=== PATIENT | male | born 1955 | race Caucasian/White ===

== ENCOUNTER 2017-02-26 20:58 | Emergency (ER) | payer BC ==
[~2017-02-26] VITALS: Ht 180.3 cm; Wt 91.9 kg
[~2017-02-26 20:58] MED LIST: ONDA4TAB46 PO
[2017-02-26 21:02] VITALS: TEMP 37.4; Ht 180.3 cm; Wt 91.9 kg
[2017-02-26] MEDS ORDERED: SODIUM CHLORIDE 0.9% 1000ML 1,000 ML IV STA (21:16)
[2017-02-26] MEDS ORDERED: ONDANSETRON INJ 2 MG/ML 2 ML VIAL IV STA (21:16)
[2017-02-26] MEDS ORDERED: KETOROLAC TROMETHAMINE 30 MG/ML VIAL IV STA (21:16)
[2017-02-26] MEDS ORDERED: GABA600T PO (21:23)
[2017-02-26] MEDS ORDERED: MIRT15TA3 PO (21:23)
[2017-02-26] MEDS ORDERED: FLUO40CA8 PO (21:23)
[2017-02-26] MEDS ORDERED: OLAN1TAB64 PO (21:23)
[2017-02-26 21:36] LABS: BASO % 0.2 %; BASO ABS # 0.02 K/uL (0-0.2); COMPLETE YES; HEMATOCRIT 44.7 % (42-52); IG% 0.2 %; LYMPH % 8.3 %; LYMPH ABS # 1.07 K/uL (1.2-3.4); MEAN CORPUSCULAR HEMOGLOBIN 30.5 pg (25-34); MEAN CORPUSCULAR HGB CONC 35.1 g/dl (32-36); MEAN PLATELET VOLUME 9.5 fL (7.4-10.4); MONO % 3.6 %; NEUT % 87.7 %; PLATELET COUNT 314 K/uL (130-400); RED BLOOD COUNT 5.14 M/uL (4.7-6.1); WHITE BLOOD COUNT 12.96 K/uL (4.8-10.8)
[2017-02-26 22:02] LABS: BUN/CREATININE RATIO 10.3 (10-20); CALCIUM 8.9 mg/dl (8.5-10.1); CREATININE 1.5 mg/dl (0.60-1.40); POTASSIUM 3.6 mmol/L (3.5-5.1)
--- NOTE | 2017-02-26 22:21 | DIAGNOSTIC IMAGING REPORT ---
CT SCAN OF THE ABDOMEN AND PELVIS WITHOUT IV CONTRAST CLINICAL HISTORY: Right flank pain. COMPARISON STUDY: No priors. TECHNIQUE: CT scan of the abdomen and pelvis is performed from the lung bases to the proximal femora. Images are reviewed in the axial, sagittal, and coronal planes. IV contrast was not administered for this examination as per the referring clinician. Automated dose control exposure was utilized. A dose lowering technique was utilized adhering to the principles of ALARA. CT DOSE: 494.27 mGy.cm FINDINGS: Lung bases: The heart is normal in size and without pericardial effusion. The lung bases are clear. Liver: The unenhanced liver is enlarged, measuring 18.7 cm in length. The liver demonstrates diffusely diminished attenuation consistent with severe hepatic steatosis. There is no intrahepatic biliary ductal dilatation. Gallbladder: There are numerous calcified gallstones. Spleen: Normal in size and attenuation. Pancreas: Unremarkable. Adrenal glands: Unremarkable. Kidneys: The unenhanced kidneys are normal in size. There is a 6 mm obstructing calculus in the mid right ureter at the level of L4 seen on axial image #303. This causes moderate right-sided hydroureteronephrosis. There is associated right-sided perinephric stranding and fluid. An additional punctate nonobstructing calculus is noted in the right kidney. No left renal calculi are identified and there is no left-sided hydronephrosis. There is no evidence of contour deforming renal mass lesion. Abdominal vasculature: The abdominal aorta is normal in course and caliber noting mild atherosclerotic calcification. Bowel: The small bowel and colon are normal in course and caliber. The appendix is not identified and reported surgically absent. Peritoneum: There is no intraperitoneal free air or abdominal ascites. There is a small fat-containing umbilical hernia. Lymphadenopathy: None. Pelvic viscera: The bladder, prostate, and seminal vesicles are normal as imaged. Skeletal structures: There is mild to moderate lumbosacral spondylosis. No lytic or blastic lesions are seen. IMPRESSION: 1. There is a 6 mm obstructing calculus in the mid right ureter. This causes moderate right-sided hydroureteronephrosis. 2. An additional punctate nonobstructing calculus is seen in the right kidney. No left renal calculi are identified. 3. Hepatomegaly and severe hepatic steatosis. 4. Cholelithiasis. 5. Additional findings as above. Electronically signed by: Familia Carroll M.D. 02/26/2017 10:20 PM Dictated Date/Time: 02/26/2017 10:14 PM
[2017-02-26 23:07] LABS: URINE APPEARANCE CLEAR (CLEAR); URINE BILIRUBIN NEG (NEG); URINE COLOR YELLOW; URINE NITRITE NEG (NEG); URINE PH 6.5 (4.5-7.5); URINE SPECIFIC GRAVITY 1.025 (1.000-1.030); UROBILINOGEN NEG (NEG); ZZUR CULT IF INDIC CLEAN CATCH NO
[2017-02-26 23:08] LABS: MANUAL MICROSCOPIC REQUIRED? NO; REVIEW REQ? NO
[2017-02-26] MEDS ORDERED: TAMS0.4C38 PO (23:14)
[2017-02-26] MEDS ORDERED: OXYC1TAB3 PO (23:14)
[2017-02-26 23:27] VITALS: BP 155/97; PULSE 99; O2SAT 94
[2017-02-26] MEDS ORDERED: OXYCODONE IR HOME PACK PO ONE (23:30)
--- NOTE | 2017-02-27 00:24 | EMERGENCY ROOM VISIT NOTE ---
History Report prepared by Lindsay: Sukhdeep Zhu Under the Supervision of: Dr. Walter Dye D.O. First contact with patient: 21:06 Chief Complaint: ABDOMINAL PAIN Stated Complaint: PAIN IN SIDE History of Present Illness The patient is a 61 year old male who presents to the Emergency Room with complaints of intermittent right sided abdominal pain that began yesterday afternoon. He rates his pain an 8/10 in severity. He has experienced this pain three separate times over this time period with the last still occurring. This has never happened to him before. He states that sometimes moving makes his pain better and sometimes it makes it worse. He is currently nauseated. He has a past medical history of an appendectomy. He still has his gallbladder. He denies any history of kidney stones. He has not been doing heavy lifting. Pt denies headache, change in vision, fevers, chest pain, shortness of breath, vomiting, diarrhea, pain with urination, melena, hematuria, testicular pain, or testicular swelling. His last bowel movement was yesterday. Source of History: patient Onset: yesterday Position: abdomen (right sided) Symptom Intensity: 8/10 Quality: sharp Timing: intermittent Modifying Factors (Worsening): movement Modifying Factors (Relieving): movement Associated Symptoms: + nausea, No fevers, No headache, No chest pain, No SOB , No vomiting, No melena, No diarrhea, No urinary symptoms Review of Systems See HPI for pertinent positives & negatives. A total of 10 systems reviewed and were otherwise negative. Past Medical & Surgical Surgical Problems: (1) History of appendectomy Family History Omitted secondary to the patient's age. Social History Smoking Status: Never Smoker Smokeless Tobacco Use: No Drug Use: none Occupation Status: employed Current/Historical Medications Scheduled Fluoxetine (Prozac), 80 MG PO DAILY Gabapentin (Neurontin), 600 MG PO BID Mirtazapine (Remeron), 15 MG PO HS Olanzapine (Zyprexa), 15 MG PO DAILY Tamsulosin Hcl (Flomax), 0.4 MG PO DAILY Scheduled PRN Oxycodone Immediate Rel Tab (Roxicodone Ir), 5 MG PO Q6H PRN for Pain Allergies Coded Allergies: No Known Allergies (Verified , 02/26/17) Physical Exam Vital Signs Date Time Temp Pulse Resp B/P (MAP) Pulse Ox O2 Delivery O2 Flow Rate FiO2 02/26/17 23:27 99 18 155/97 94 02/26/17 21:02 37.4 88 16 195/107 95 Room Air Physical Exam GENERAL: alert, disheveled appearing, well nourished, no distress, non-toxic, sitting up in bed EYE EXAM: normal conjunctiva OROPHARYNX: no exudate, no erythema, lips, buccal mucosa, and tongue normal and mucous membranes are moist NECK: supple, no nuchal rigidity, no adenopathy, non-tender LUNGS: Clear to auscultation. Normal chest wall mechanics HEART: no murmurs, S1 normal and S2 normal ABDOMEN: abdomen soft, minimal tenderness to right lower quadrant, normo-active bowel sounds, no masses, no rebound or guarding. BACK: Back is symmetrical on inspection and there is no deformity, no midline tenderness, no CVA tenderness. SKIN: no rashes and no bruising UPPER EXTREMITIES: upper extremities are grossly normal. LOWER EXTREMITIES: No pitting edema. NEURO EXAM: Normal sensorium, cranial nerves II-XII grossly intact, normal speech, no gross weakness of arms, no gross weakness of legs. Medical Decision & Procedures ER Provider Diagnostic Interpretation: Radiology results as stated below per my review and the radiologist's interpretation: CT SCAN OF THE ABDOMEN AND PELVIS WITHOUT IV CONTRAST CLINICAL HISTORY: Right flank pain. COMPARISON STUDY: No priors. TECHNIQUE: CT scan of the abdomen and pelvis is performed from the lung bases to the proximal femora. Images are reviewed in the axial, sagittal, and coronal planes. IV contrast was not administered for this examination as per the referring clinician. Automated dose control exposure was utilized. A dose lowering technique was utilized adhering to the principles of ALARA. CT DOSE: 494.27 mGy.cm FINDINGS: Lung bases: The heart is normal in size and without pericardial effusion. The lung bases are clear. Liver: The unenhanced liver is enlarged, measuring 18.7 cm in length. The liver demonstrates diffusely diminished attenuation consistent with severe hepatic steatosis. There is no intrahepatic biliary ductal dilatation. Gallbladder: There are numerous calcified gallstones. Spleen: Normal in size and attenuation. Pancreas: Unremarkable. Adrenal glands: Unremarkable. Kidneys: The unenhanced kidneys are normal in size. There is a 6 mm obstructing calculus in the mid right ureter at the level of L4 seen on axial image #303. This causes moderate right-sided hydroureteronephrosis. There is associated right-sided perinephric stranding and fluid. An additional punctate nonobstructing calculus is noted in the right kidney. No left renal calculi are identified and there is no left-sided hydronephrosis. There is no evidence of contour deforming renal mass lesion. Abdominal vasculature: The abdominal aorta is normal in course and caliber noting mild atherosclerotic calcification. Bowel: The small bowel and colon are normal in course and caliber. The appendix is not identified and reported surgically absent. Peritoneum: There is no intraperitoneal free air or abdominal ascites. There is a small fat-containing umbilical hernia. Lymphadenopathy: None. Pelvic viscera: The bladder, prostate, and seminal vesicles are normal as imaged. Skeletal structures: There is mild to moderate lumbosacral spondylosis. No lytic or blastic lesions are seen. IMPRESSION: 1. There is a 6 mm obstructing calculus in the mid right ureter. This causes moderate right-sided hydroureteronephrosis. 2. An additional punctate nonobstructing calculus is seen in the right kidney. No left renal calculi are identified. 3. Hepatomegaly and severe hepatic steatosis. 4. Cholelithiasis. 5. Additional findings as above. Electronically signed by: Familia Carroll M.D. 02/26/2017 10:20 PM Dictated Date/Time: 02/26/2017 10:14 PM Laboratory Results 02/26/17 21:25 Red Blood Count 5.14, Mean Corpuscular Volume 87.0, Mean Corpuscular Hemoglobin 30.5, Mean Corpuscular Hemoglobin Concent 35.1, Mean Platelet Volume 9.5, Neutrophils (%) (Auto) 87.7, Lymphocytes (%) (Auto) 8.3, Monocytes (%) (Auto) 3.6, Eosinophils (%) (Auto) 0.0, Basophils (%) (Auto) 0.2, Neutrophils # (Auto) 11.37, Lymphocytes # (Auto) 1.07, Monocytes # (Auto) 0.47, Eosinophils # (Auto) 0.00, Basophils # (Auto) 0.02 02/26/17 21:25 Test 02/26/17 21:25 02/26/17 22:45 White Blood Count 12.96 K/uL (4.8-10.8) Red Blood Count 5.14 M/uL (4.7-6.1) Hemoglobin 15.7 g/dL (14.0-18.0) Hematocrit 44.7 % (42-52) Mean Corpuscular Volume 87.0 fL (80-100) Mean Corpuscular Hemoglobin 30.5 pg (25-34) Mean Corpuscular Hemoglobin Concent 35.1 g/dl (32-36) Platelet Count 314 K/uL (130-400) Mean Platelet Volume 9.5 fL (7.4-10.4) Neutrophils (%) (Auto) 87.7 % Lymphocytes (%) (Auto) 8.3 % Monocytes (%) (Auto) 3.6 % Eosinophils (%) (Auto) 0.0 % Basophils (%) (Auto) 0.2 % Neutrophils # (Auto) 11.37 K/uL (1.4-6.5) Lymphocytes # (Auto) 1.07 K/uL (1.2-3.4) Monocytes # (Auto) 0.47 K/uL (0.11-0.59) Eosinophils # (Auto) 0.00 K/uL (0-0.5) Basophils # (Auto) 0.02 K/uL (0-0.2) RDW Standard Deviation 42.9 fL (36.4-46.3) RDW Coefficient of Variation 13.5 % (11.5-14.5) Immature Granulocyte % (Auto) 0.2 % Immature Granulocyte # (Auto) 0.03 K/uL (0.00-0.02) Anion Gap 8.0 mmol/L (3-11) Est Creatinine Clear Calc Drug Dose 61.4 ml/min Estimated GFR () 58.2 Estimated GFR (Non- 50.2 BUN/Creatinine Ratio 10.3 (10-20) Calcium Level 8.9 mg/dl (8.5-10.1) Total Bilirubin 0.7 mg/dl (0.2-1) Direct Bilirubin 0.2 mg/dl (0-0.2) Aspartate Amino Transf (AST/SGOT) 17 U/L (15-37) Alanine Aminotransferase (ALT/SGPT) 26 U/L (12-78) Alkaline Phosphatase 71 U/L (45-117) Total Protein 7.9 gm/dl (6.4-8.2) Albumin 4.1 gm/dl (3.4-5.0) Lipase 142 U/L (73-393) Urine Color YELLOW Urine Appearance CLEAR (CLEAR) Urine pH 6.5 (4.5-7.5) Urine Specific [place] 1.025 (1.000-1.030) Urine Protein 1+ (NEG) Urine Glucose (UA) 3+ (NEG) Urine Ketones 1+ (NEG) Urine Occult Blood 2+ (NEG) Urine Nitrite NEG (NEG) Urine Bilirubin NEG (NEG) Urine Urobilinogen NEG (NEG) Urine Leukocyte Esterase NEG (NEG) Urine WBC (Auto) 1-5 /hpf (0-5) Urine RBC (Auto) 10-30 /hpf (0-4) Urine Hyaline Casts (Auto) 1-5 /lpf (0-5) Urine Epithelial Cells (Auto) 10-20 /lpf (0-5) Urine Bacteria (Auto) NEG (NEG) Laboratory results per my review. Medications Administered Medications (Trade) Dose Ordered Sig/Julienne Route Start Time Stop Time Status Last Admin Dose Admin Sodium Chloride 1,000 ml @ 999 mls/hr Q1H1M STAT IV 02/26/17 21:16 02/26/17 22:16 DC 02/26/17 21:30 999 MLS/HR Ketorolac Tromethamine (Toradol Inj) 30 mg NOW STAT IV 02/26/17 21:16 02/26/17 21:17 DC 02/26/17 21:31 30 MG Ondansetron HCl (Zofran Inj) 4 mg NOW STAT IV 02/26/17 21:16 02/26/17 21:17 DC 02/26/17 21:30 4 MG Oxycodone HCl (Roxicodone Immediate Rel 5MG Home Pack) 1 homepack UD ONCE PO 02/26/17 23:30 02/26/17 23:31 DC 02/26/17 23:24 1 HOMEPACK ED Course ED COURSE: Vital signs were reviewed and showed hypertension. The patients medical record was reviewed The above diagnostic studies were performed and reviewed. ED treatments and interventions as stated above. 2105: The patient was evaluated in room C6. A complete history and physical examination was performed. 2115: Ordered Zofran Inj 4 mg IV, Toradol Inj 30 mg IV, Sodium Chloride 1000 ml @ 999 mls/hr IV 0: Ordered Oxycodone HCl 1 homepack PO 2345: Upon reevaluation, the patient is resting. I discussed my findings with the patient and he understands and agrees with the treatment plan. The patient remained stable while under my care. The patient appeared well at the time of discharge. Medical Decision Differential diagnoses includes but is not limited to gastritis, peptic ulcer disease, GERD, gallbladder disease, pancreatitis, small bowel obstruction, acute coronary syndrome, pericarditis, ischemic bowel, irritable bowel disease, irritable bowel syndrome, appendicitis, diverticulitis, malignancy, hernia, urinary tract infection, torsion, perforation, trauma, infectious. Patient is a 61-year-old male who presents the ER with right-sided abdominal pain associated with nausea. This started yesterday and has been coming going intermittently. He has a previous appendectomy. He was given IV Toradol and had significant improvement of his pain. CT of his abdomen/pelvis shows a 5 mm stone with hydro-. No infection of his UA. Patient has a mild leukocytosis 12.9 thousand which I favor secondary to the pain. Creatinine was slightly elevated at 1.5 from baseline of 1.2. UA shows no infection. Discussed my findings with the patient and family. Patient was discharged with Flomax and OxyIR to follow-up with urology and PCP. Discussed with Pt concerning signs and symptoms to watch out for. Pt was instructed to follow up with their PCP and discussed with the patient their option to return to the ED at anytime for persistent or worsening symptoms. The appropriate anticipatory guidance and out- patient management, including indications for return to the emergency department , were explained at length to the patient and understood. Medication Reconcilliation Current Medication List: was personally reviewed by me Blood Pressure Screening Patient's blood pressure: Elevated blood pressure Blood pressure disposition: Elevated BP felt to be situational Impression Primary Impression: Renal colic Scribe Attestation The scribe's documentation has been prepared under my direction and personally reviewed by me in its entirety. I confirm that the note above accurately reflects all work, treatment, procedures, and medical decision making performed by me. Departure Information Dispostion Home / Self-Care Prescriptions Oxycodone Immediate Rel Tab (ROXICODONE IR) 5 Mg Tab 5 MG PO Q6H Y for Pain, #10 TAB Prov: Walter Dye, DO 02/26/17 Tamsulosin Hcl (FLOMAX) 0.4 Mg Cap 0.4 MG PO DAILY, #10 CAP Prov: Walter Dye, DO 02/26/17 Referrals Cory Carter M.D. (PCP) Forms Call Back Authorization, HOME CARE DOCUMENTATION FORM, IMPORTANT VISIT INFORMATION Patient Instructions ED Stone Renal W Colic, [facility] Additional Instructions Please follow up with your primary care doctor or if you are a student, [facility] with in the next 24 hours. Any worsening of your symptoms, please return to the ED immediately. This includes any fevers greater than 100.4, worsening pain, chest pain, shortness breath, persistent nausea, vomiting, unable to eat or drink, or any other concerning signs or symptoms from your standpoint. You were given medications during this visit that will inhibit your ability to drive, operate machinery and work. Please do NOT drive, operate machinery or work for the next 12hrs. You were also given a prescription for a narcotic. While taking this medication you should also not drive, operate machinery and or work. You were found to have a blood pressure greater than 120 systolic over 90 diastolic. Due to the new Medicare guidelines, we are now recommending that you follow up with your primary care doctor in regards to this elevated blood pressure. Please follow up with urology as listed below within the next 2 weeks.
== END 2017-02-26 23:28 | disposition home or self-care (01) ==
LOC: C.EDB 20:59 → C.EDC 23:28
DX: N23 Unspecified renal colic (principal); R11.0 Nausea; Z79.899 Other long term (current) drug therapy

== ENCOUNTER 2019-12-29 10:47 | Inpatient (IN) ==
--- OUTSIDE RECORDS SUMMARY | 2019-12-29 10:49 | External Medical Summary | Continuity of Care Document ---
:1955 Author Name Usha Pope, Provider Address Unavailable Unavailable , Care Team Providers Name Role Phone Stefan Pope, Chris Unavailable [email or web address] Active medical history not documented Allergies and Adverse Reactions Allergy history not documented Medications Medications not documented Procedures Procedures not documented Immunizations Immunizations not documented Plan of Treatment Planned Observations Planned Goals not documented Results No Known Results Results not documented
[2019-12-29] MEDS ORDERED: SODIUM CHLORIDE 0.9% 1000ML 1,000 ML IV SCH (11:15)
--- NOTE | 2019-12-29 11:15 | Emergency Department Note ---
Impression & Plan Stroke-like symptoms, Left-sided weakness ED Provider Note NAME: TK SETHI AGE: 64 SEX: M ARRIVES VIA: Walk-In INFORMANT: [Patient] ED PROVIDER(S): Cain Weiner MD CHIEF COMPLAINT: Left-sided weakness PLAN: Disposition: Admitted Condition: [Good] MEDICAL DECISION MAKING: Patient presented with acute onset left-sided weakness. Unfortunate he is out of the window for TPA. A stroke alert was initiated. The patient underwent CT angiographic imaging. His vital signs revealed tachycardia. His EKG showed sinus tachycardia without ischemia. His blood work was unremarkable except for mild hyperglycemia. He had a tele-stroke consult with Dr. Isidro at [facility]. The patient was hydrated with saline. She recommended hydration, aspirin and Plavix loading. He was given rectal aspirin as he failed his dysphagia screen. Speech will need to evaluate the patient before his Plav ix is administered. The sure coordinator did contact them for expedited evaluation. Consultation was made with the hospitalist service. Patient was evaluated in the ER and admitted for further management of the strokelike symptoms. Triage Nursing notes reviewed and agree them. [Additional history obtained from] patient's mother. Left-sided weakness and facial droop is new. Vital Signs: reviewed and remarkable for significant hypertension Differential diagnosis: CVA, TIA, infection, dehydration, metabolic abnormality, hypo/hyperglycemia, electrolyte disturbance, anemia, hypoxia, cardiac sources, intracerebral event, toxicologic, neurologic, as well as other pathologies. ER treatment provided: Saline hydration Monitoring Rectal aspirin IV potassium Diagnostics interpreted by me: ECG: Rate: 120 Rhythm: Sinus tachycardia [place]:Normal QRS:Normal ST segements:No elevation or depression. Nonspecific ST Other:No PACs or PVCs Cardiac Monitoring: Cardiac monitoring ordered by me: The patient was placed on continuous cardiac monitoring and observed. It revealed a sinus tachycardia at 108 beats per minute without ectopy or evidence of dysrhythmia. Laboratory studies: [See below] an unremarkable CBC and chemistry panel except for mild hypokalemia. Imaging studies: CT angiography of the head and neck was unremarkable for any acute process. I refer you to the EMR for further details. Consultation(s): Dr. Isidro, [place] tele-stroke [facility] hospitalist service HPI: The patient is a 64 year old male who presents to the Emergency Room with complaints of left sided weakness. This started at 0600 this morning and is improving. Involved the arm and leg. Leg improved 2 hrs ago. The patient also notes the following associated symptoms, some slurred speech. , left hand numbness. The patient has taken no medication for relieving factors. Current pain is rated as 0/10. No history of stroke. Uncle had CVA. Pt denies LOC, headache, fevers, chills, diaphoresis, visual changes, neck pain, chest pain, breathing difficulties, nausea, vomiting, abdominal pain, back pain, melena, he matochezia, urinary symptoms, lymphadenopathy, rash, or other complaints. ROS: See above HPI for pertinent positives & negatives. A total of [10] systems reviewed and were otherwise negative. PAST MEDICAL HISTORY:[See Below] DM PAST SURGICAL HISTORY:[See Below] FAMILY HISTORY:[See Below] SOCIAL HISTORY:[See Below]No etoh. HOME MEDICATIONS:[See Below] ALLERGIES:[See Below] VITALS:[See Below] PHYSICAL EXAMINATION: GENERAL: Awake, alert, anxious appearing, no distress HENT: Normocephalic, atraumatic. Oropharynx unremarkable. EYES: PERRL. EOMI. Normal conjunctiva. Sclera non-icteric. NECK: Supple. Normal inspection. Non-tender. No nuchal rigidity. FROM. No bruit. RESPIRATORY: Breath sounds equal. No wheezes. No rhonchi. Normal respiratory effort. CARDIAC: tachycardic rate. Regular rhythm. No murmurs. No rubs. No JVD. GI: Soft, non distended. No tenderness to palpation. No rebound or guarding. No masses. RECTAL: Deferred. MUSCULOSKELETAL: Unremarkable. No edema. No discoloration. Gross motor strength symmetric. NEURO: Cranial nerves 2-12 grossly intact. Normal sensorium. Mild left arm weakness. Speech slighltly slurred. No pronator drift. Normal rapid alternating movements. Negative rhomberg. SKIN: No rash or jaundice noted. LYMPH: No adenopathy. ED COURSE: [Critical Care:] [None] Cain Weiner MD Past Med/Surg History Medical History (Updated 12/29/19 @ 19:06 by Cain Weiner MD) GRIFFIN (generalized anxiety disorder) Hyperlipidemia Major depressive disorder without psychotic features Type 2 diabetes mellitus Surgical History (Updated 12/29/19 @ 13:34 by Monse Hunter PA-C) History of lithotripsy S/P appendectomy Family History (Updated 12/29/19 @ 13:32 by Monse Hunter PA-C) Mother Depression Uncle Stroke Social History (Updated 12/29/19 @ 13:32 by Monse Hunter PA-C) Preferred Language: Yi Communication Ability: Effective Beliefs That Will Affect Care: None Current Living Situation: Alone Other Information That Helps Us Care for You: No Feels Safe at Home: Yes Safety Concerns: Feels Safe At This Time Smoking Status: Never smoker Hx Alcohol Use: No Hx Substance Use: No Allergies Allergies Allergy/AdvReac Type Severity Reaction Status Date / Time No Known Allergies Allergy Unknown Verified 02/26/17 21:05 Home Meds Home Medications Medication Instructions Recorded Confirmed aripiprazole 5 mg PO HS 12/29/19 12/29/19 fluoxetine 80 mg PO HS 12/29/19 12/29/19 gabapentin 300 mg PO HS 12/29/19 12/29/19 mirtazapine 45 mg PO HS 12/29/19 12/29/19 olanzapine 2.5 mg PO HS 12/29/19 12/29/19 Results & Data (ED) Vital Signs Vital Signs - 24 hr 12/29/19 10:58 12/29/19 11:35 12/29/19 11:36 Temperature 36.6 C Temperature Source Oral Pulse Rate 134 H 120 H 120 H Pulse Rate from SpO2 Sensor 120 H 119 H Respiratory Rate 16 Respiratory Effort / Characteristics Non-Labored Spontaneous Respiratory Depth Normal Respiratory Pattern Regular Blood Pressure 193/110 H 208/111 H Blood Pressure Mean 137 143 Blood Pressure Position Sitting Pulse Oximetry 95 95 95 Oxygen Delivery Method Room Air Sepsis Recent Fever Within 48 Hours No Sepsis New/Unexplained Change in Mental Status No Sepsis Action Taken by Nursing No Action Required 12/29/19 11:45 12/29/19 12:00 12/29/19 12:15 Temperature Temperature Source Pulse Rate 114 H 108 H 109 H Pulse Rate from SpO2 Sensor 114 H 108 H 107 H Respiratory Rate Respiratory Effort / Characteristics Respiratory Depth Respiratory Pattern Blood Pressure 207/99 H 200/99 H 206/103 H Blood Pressure Mean 126 135 137 Blood Pressure Position Pulse Oximetry 95 95 95 Oxygen Delivery Method Sepsis Recent Fever Within 48 Hours Sepsis New/Unexplained Change in Mental Status Sepsis Action Taken by Nursing Laboratory Data Result diagrams: 12/29/19 11:21 12/29/19 11:21 Lab Results 12/29/19 12/29/19 12/29/19 Range/Units 11:21 11:21 11:21 WBC 9.56 (4.8-10.8) K/uL RBC 5.15 (4.7-6.1) M/uL Hgb 15.5 (14.0-18.0) g/dL POC Hgb (14.0-18.0) g/dl Hct 44.9 (42-52) % POC Hct (42-52) % MCV 87.2 (80-100) fL MCH 30.1 (25-34) pg MCHC 34.5 (32-36) g/dL RDW Std Deviation 41.8 (36.4-46.3) fL RDW Coeff of Timi 13.2 (11.5-14.5) % Plt Count 319 (130-400) K/uL MPV 9.4 (7.4-10.4) fL Immature Gran % (Auto) 0.3 % Neut % (Auto) 59.1 % Lymph % (Auto) 33.6 % Love % (Auto) 5.2 % Eos % (Auto) 1.4 % Baso % (Auto) 0.4 % Immature Gran # (Auto) 0.03 H (0.00-0.02) K/uL Neut # (Auto) 5.65 (1.4-6.5) K/uL Lymph # (Auto) 3.21 (1.2-3.4) K/uL Love # (Auto) 0.50 (0.11-0.59) K/uL Eos # (Auto) 0.13 (0-0.5) K/uL Baso # (Auto) 0.04 (0-0.2) K/uL PT 10.7 (9.0-12.0) Seconds INR 1.0 (0.9-1.1) APTT 22.1 (21.0-31.0) Seconds PTT Ratio 0.8 POC Sodium (135-144) mmol/L Sodium (136-145) mmol/L POC Potassium (3.3-5.0) mmol/L Potassium (3.5-5.1) mmol/L POC Chloride (101-112) mmol/L Chloride (98-107) mmol/L Carbon Dioxide (21-32) mmol/L POC Total CO2 (24-31) mmol/L Anion Gap (3-11) POC Anion Gap (16-25) mmol/L POC BUN (7-18) mg/dl BUN (7-18) mg/dl Creatinine (0.6-1.4) mg/dl POC Creatinine (0.6-1.3) mg/dl Est Cr Clr Drug Dosing ml/min Est GFR ( Amer) Est GFR (Non-Af Amer) BUN/Creatinine Ratio (10-20) Glucose (70-99) mg/dl POC Glucose (other) (70-99) mg/dl Calcium (8.5-10.1) mg/dl POC Ioniz Calcium Mamie (1.12-1.32) mmol/l Magnesium (1.8-2.4) mg/dl Total Bilirubin (0.2-1) mg/dl AST (15-37) U/L ALT (12-78) U/L Alkaline Phosphatase (45-117) U/L Troponin I (0-0.045) ng/ml Total Protein (6.4-8.2) gm/dl Albumin (3.4-5.0) gm/dl Globulin (2.5-4.0) gm/dl Albumin/Globulin Ratio (0.9-2) Blood Type A Positive Antibody Screen NEGATIVE 12/29/19 12/29/19 Range/Units 11:21 11:29 WBC (4.8-10.8) K/uL RBC (4.7-6.1) M/uL Hgb (14.0-18.0) g/dL POC Hgb 16.0 (14.0-18.0) g/dl Hct (42-52) % POC Hct 47 (42-52) % MCV (80-100) fL MCH (25-34) pg MCHC (32-36) g/dL RDW Std Deviation (36.4-46.3) fL RDW Coeff of [place] (11.5-14.5) % Plt Count (130-400) K/uL MPV (7.4-10.4) fL Immature Gran % (Auto) % Neut % (Auto) % Lymph % (Auto) % Love % (Auto) % Eos % (Auto) % Baso % (Auto) % Immature Gran # (Auto) (0.00-0.02) K/uL Neut # (Auto) (1.4-6.5) K/uL Lymph # (Auto) (1.2-3.4) K/uL Love # (Auto) (0.11-0.59) K/uL Eos # (Auto) (0-0.5) K/uL Baso # (Auto) (0-0.2) K/uL PT (9.0-12.0) Seconds INR (0.9-1.1) APTT (21.0-31.0) Seconds PTT Ratio POC Sodium 143 (135-144) mmol/L Sodium 140 (136-145) mmol/L POC Potassium 3.1 L (3.3-5.0) mmol/L Potassium 3.1 L (3.5-5.1) mmol/L POC Chloride 105 (101-112) mmol/L Chloride 108 H (98-107) mmol/L Carbon Dioxide 23 (21-32) mmol/L POC Total CO2 21 L (24-31) mmol/L Anion Gap 9.0 (3-11) POC Anion Gap 21.0 (16-25) mmol/L POC BUN 9 (7-18) mg/dl BUN 10 (7-18) mg/dl Creatinine 1.38 (0.6-1.4) mg/dl POC Creatinine 1.0 (0.6-1.3) mg/dl Est Cr Clr Drug Dosing 53.4 ml/min Est GFR ( Amer) 63.1 Est GFR (Non-Af Amer) 54.4 BUN/Creatinine Ratio 7.0 L (10-20) Glucose 223 H (70-99) mg/dl POC Glucose (other) 228 H (70-99) mg/dl Calcium 9.1 (8.5-10.1) mg/dl POC Ioniz Calcium Mamie 1.16 (1.12-1.32) mmol/l Magnesium 2.1 (1.8-2.4) mg/dl Total Bilirubin 0.5 (0.2-1) mg/dl AST 24 (15-37) U/L ALT 40 (12-78) U/L Alkaline Phosphatase 83 (45-117) U/L Troponin I < 0.015 (0-0.045) ng/ml Total Protein 8.3 H (6.4-8.2) gm/dl Albumin 4.0 (3.4-5.0) gm/dl Globulin 4.3 H (2.5-4.0) gm/dl Albumin/Globulin Ratio 0.9 (0.9-2) Blood Type Antibody Screen Administered Medications Gadobutrol (Gadavist 65ml) 9.2 ml IV ONCE PRN PRN Reason: Interaction Checking Stop: 01/02/20 15:43 Last Admin: 12/29/19 15:44 Dose: 9.2 ml Documented by: [id number] Potassium Chloride/Sodium Chloride (Normal Saline W/20 Meq Kcl) 20 meq in 1,000 mls @ 50 mls/hr IV .Q20H DONNA Stop: 12/30/19 09:59 Last Admin: 12/29/19 16:28 Dose: 50 mls/hr Documented by: [id number] Insulin Aspart (Novolog Flexpen) 0 units SC Q6 DONNA Stop: 01/28/20 17:59 Last Admin: 12/29/19 17:45 Dose: 2 units Documented by: [id number] Cosigned by: [id number] Discontinued Medications Aspirin (Aspirin) Confirm Administered Dose 324 mg .ROUTE .STK-MED ONE Stop: 12/29/19 11:59 Last Admin: 12/29/19 12:15 Dose: Not Given Documented by: [id number] Aspirin (Aspirin) 300 mg SC ONE ONE Stop: 12/29/19 12:02 Last Admin: 12/29/19 12:15 Dose: 300 mg Documented by: [id number] Clopidogrel Bisulfate (Plavix) Confirm Administered Dose 300 mg .ROUTE .STK-MED ONE Stop: 12/29/19 11:59 Last Admin: 12/29/19 12:15 Dose: Not Given Documented by: [id number] Clopidogrel Bisulfate (Plavix) 75 mg PO ONE ONE Stop: 12/29/19 15:46 Last Admin: 12/29/19 16:29 Dose: 75 mg Documented by: [id number] Sodium Chloride (Nss 1000ml) 1,000 mls @ 50 mls/hr IV .Q20H DONNA Stop: 01/28/20 11:14 Last Infusion: 12/29/19 18:44 Dose: 0 mls/hr Documented by: [id number] Admin: 12/29/19 11:47 Dose: 50 mls/hr Documented by: [id number] Potassium Chloride (K Rubin / Wtr) 10 meq in 100 mls @ 100 mls/hr IV ONE ONE Stop: 12/29/19 13:23 Last Infusion: 12/29/19 14:11 Dose: 0 mls/hr Documented by: [id number] Admin: 12/29/19 12:34 Dose: 100 mls/hr Documented by: [id number] Potassium Chloride (K Rubin / Wtr) 10 meq in 100 mls @ 100 mls/hr IV Q1H DONNA Stop: 12/29/19 15:59 Last Infusion: 12/29/19 18:43 Dose: 0 mls/hr Documented by: [id number] Admin: 12/29/19 17:39 Dose: Not Given Documented by: [id number] Admin: 12/29/19 16:28 Dose: 100 mls/hr Documented by: [id number] Ioversol (Optiray 320 125ml) 120 ml IV ONCE PRN PRN Reason: Interaction Checking Stop: 01/02/20 11:21 Last Admin: 12/29/19 11:22 Dose: 120 ml Documented by: [id number] Discharge Plan Visit Data *Final* Discharge Date/Time: 12/29/19 12:55 Chief Complaint: Weakness Stated Complaint: WEAKNESS IN LEFT SIDE, DIZZINESS ED Provider: Cain Weiner Discharge Problem: Stroke-like symptoms, Left-sided weakness Patient Disposition: Admitted As Inpatient Discharge Instructions Interventions: ED Discharge Assessment Last Done: 12/29/19 12:55
[2019-12-29] MEDS ORDERED: OPTIRAY 320 125ml IV PRN (11:22)
[2019-12-29 11:35] LABS: Basophils # (auto) 0.04 K/uL (0-0.2); Basophils % (auto) 0.4 %; Eosinophils # (auto) 0.13 K/uL (0-0.5); Eosinophils % (auto) 1.4 %; Hematocrit (blood only) 44.9 % (42-52); Hemoglobin 15.5 g/dL (14.0-18.0); Immature Granulocytes # (auto) 0.03 K/uL (0.00-0.02); Immature Granulocytes % (auto) 0.3 %; Lymphocytes # (auto) 3.21 K/uL (1.2-3.4); Lymphocytes % (auto) 33.6 %; Mean Corpuscular Hemoglobin 30.1 pg (25-34); Mean Corpuscular Hgb Conc 34.5 g/dL (32-36); Mean Corpuscular Volume 87.2 fL (80-100); Mean Platelet Volume 9.4 fL (7.4-10.4); Monocytes % (auto) 5.2 %; Neutrophils # (auto) 5.65 K/uL (1.4-6.5); Neutrophils % (auto) 59.1 %; Platelet Count 319 K/uL (130-400); RDW Coefficient of Variation 13.2 % (11.5-14.5); RDW Standard Deviation 41.8 fL (36.4-46.3); Red Blood Count 5.15 M/uL (4.7-6.1); White Blood Count 9.56 K/uL (4.8-10.8)
[2019-12-29 11:41] LABS: iSTAT Ionized Calcium 1.16 mmol/l (1.12-1.32); iSTAT Potassium 3.1 mmol/L (3.3-5.0)
--- NOTE | 2019-12-29 11:41 | CT Scan Report ---
CT head/brain wo con CLINICAL HISTORY: 64 years-old Male with Stroke evaluation . Acute strokelike symptoms TECHNIQUE: Multiple axial CT images of the head were obtained without contrast. A dose lowering tech nique was utilized adhering to the principles of ALARA. COMPARISON: CTA head and neck of same day FINDINGS: No acute intracranial hemorrhage, midline shift, intracranial mass, hydrocephalus, territorial ischem ia or abnormal extra-axial collection. Cerebral vascular calcifications are noted. The calvarium is intact. The paranasal sinuses, mastoid air cells, and middle ear cavities are clear . IMPRESSION: No acute intracranial abnormality. ACT 112: Negative or not required by law. The above report was generated using voice recognition software. It may contain grammatical, syntax o r spelling errors. Electronically signed by: Yaya Collazo M.D. 12/29/2019 11:40 AM
[2019-12-29 11:44] LABS: Partial Thromboplastin Ratio 0.8; Partial Thromboplastin Time 22.1 Seconds (21.0-31.0); Prothrombin Time 10.7 Seconds (9.0-12.0)
--- NOTE | 2019-12-29 11:45 | CT Scan Report ---
CT angio neck with con HISTORY: Mental status change Stroke evaluation TECHNIQUE: Multiaxial CT angiography of the neck was performed IV contrast: 120 cc nonionic All stephanie urements were calculated based on NASCET criteria. Maximum intensity projection images were also obt ained. A dose lowering technique was utilized adhering to the principles of ALARA. COMPARISON STUDY: None. FINDINGS: The aortic arch and proximal great vessels are widely patent. There is no significant sten osis, occlusion, or dissection identified within the bilateral common carotid, internal carotid, or v ertebral arteries. 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 ACT 112: Negative or not required by law. The above report was generated using voice recognition software. It may contain grammatical, syntax or spelling errors. Electronically signed by: Chris Palacio M.D. 12/29/2019 11:44 AM
--- NOTE | 2019-12-29 11:49 | CT Scan Report ---
CTA ANGIOGRAPHY OF THE HEAD CLINICAL HISTORY: Stroke evaluation COMPARISON STUDY: No previous studies for comparison. TECHNIQUE: Helical axial images of the head were obtained following uneventful intravenous administr ation of 120 cc of Optiray 320. Sagittal and coronal reconstructions were viewed as well as maximal i ntensity projections on an independent 3-D workstation. Automated exposure control was utilized for the study. A dose lowering technique was utilized adhering to the principles of ALARA. FINDINGS: No acute intracranial hemorrhage, midline shift or mass effect is present. Ventricular syst em is normal. Basilar cisterns are patent. There are no extra-axial collections. The bilateral M1, M2 , A1 and A2 segments are patent. No intraluminal thrombus is noted. There is no abrupt vessel cut off . No intracranial aneurysm is identified. The right vertebral artery is dominant. The left is hypopla stic. There is mild asymmetric decreased caliber of the right P2 segment. IMPRESSION: 1. No intraluminal thrombus or abrupt vessel cut off. 2. Mild asymmetric decreased caliber of the right P2 segment. This finding is age indeterminate. ACT 112: Negative or not required by law. Electronically signed by: Gerald Boyce M.D. 12/29/2019 11:47 AM
[2019-12-29 11:57] LABS: Blood Urea Nitrogen 10 mg/dl (7-18); Calcium 9.1 mg/dl (8.5-10.1); Carbon Dioxide 23 mmol/L (21-32); Chloride 108 mmol/L (98-107); Creatinine Clr Calc Pharmacy 53.4 ml/min; Est GFR (African American) 63.1; Est GFR (Non-African American) 54.4; Glucose 223 mg/dl (70-99); Magnesium 2.1 mg/dl (1.8-2.4); Potassium 3.1 mmol/L (3.5-5.1); Sodium 140 mmol/L (136-145)
[2019-12-29] MEDS ORDERED: ASPIRIN CHEW 324 MG ONE (11:58)
[2019-12-29] MEDS ORDERED: CLOPIDOGREL BISULFATE 300 MG TAB ONE (11:58)
[2019-12-29] MEDS ORDERED: ASPIRIN 300 MG SUPP PR ONE (12:01)
[2019-12-29 12:03] LABS: Alanine Aminotransferase 40 U/L (12-78); Albumin Globulin Ratio 0.9 (0.9-2); Alkaline Phosphatase 83 U/L (45-117); Aspartate Aminotransferase 24 U/L (15-37); Bilirubin,Total 0.5 mg/dl (0.2-1); Globulin 4.3 gm/dl (2.5-4.0); Total Protein 8.3 gm/dl (6.4-8.2); Troponin I < 0.015 ng/ml (0-0.045)
[2019-12-29] MEDS ORDERED: POTASSIUM CHLORIDE / WTR 10 MEQ/100 ML PLCT IV ONE (12:24)
--- NOTE | 2019-12-29 12:42 | XRay Report ---
XR chest 1V portable HISTORY: 64 years-old Male stroke symptoms acute strokelike symptoms COMPARISON: CT abdomen and pelvis 02/26/2017 TECHNIQUE: Portable AP view of the chest FINDINGS: Cardiomediastinal and hilar silhouettes are within normal limits. There is no pneumothorax, pleural e ffusion, airspace consolidation or overt pulmonary edema. Bones of the chest appear grossly intact. IMPRESSION: No acute process. ACT 112: Negative or not required by law. The above report was generated using voice recognition software. It may contain grammatical, syntax o r spelling errors. Electronically signed by: Yaya Collazo M.D. 12/29/2019 12:40 PM
--- NOTE | 2019-12-29 13:21 | History & Physical Report ---
Date of Service December 29, 2019 Assessment & Plan (1) Stroke-like symptoms: (2) Hypertensive urgency: Patient with stroke-like symptoms starting this morning at 6 or 7 AM including LUE, LLE weakness, left facial droops, and slurred speech. Slight improvement of symptoms now. CT of head, CTA head & neck are negative. MRI Brain ordered to determine if CVA vs. TIA. ASA and Plavix loading doses ordered in ED. ASA given rectally. Patient failed dysphagia screen due to facial droop, therefore PO Plavix load was not given yet. Continue PO ASA 81 mg and Plavix x 30 days per TeleStroke consul in ED then ASA alone. Speech evaluation- once patient is evaluated by speech, hopefully can receive Plavix loading dose and transition to PO meds NPO for now pending speech eval. Once cleared, DM & heart healthy diet. Routine neuro checks Consult Neurology- Dr. Mckenzie aware Echo ordered. Monitor BP closely. Permissive HTN for now. If BP does not improve, consider addition of ACEI (3) Hypokalemia: Potassium 3.1 upon admission. Given 1 K-Rubin in the ED. Will give K-Rubin x 2 & 1 bag of NSS 1000ml + 20 mEq of K+ Recheck potassium in AM (4) Type 2 diabetes mellitus: Patient with DM. Currently not taking outpatient Metformin. Hasn't seen PCP in >1 year. Recheck A1C in AM. Insulin protocol (5) Hyperlipidemia: Patient was previously on atorvastatin 20 mg daily but hasn't taken for months. Start atorvastatin 40 mg daily in AM. (6) Major depressive disorder without psychotic features: (7) GRIFFIN (generalized anxiety disorder): Continue home meds. Confirmed. (8) DVT prophylaxis: Hold Lovenox for now due to BP elevation. Will start if BP improves. SCDs for now. History of Present Illness Chief Complaint: Stroke Primary Care Provider: Cory Carter MD Patient is a 64 yo male with history of Type 2 DM, hyperlipidemia, depression without psychotic feature, Anxiety disorder, and social phobia who presented to the ED with stroke-like symptoms. He states that he noticed his symptoms this morning around 6 or 7 AM. He was trying to roll in bed and noticed that his left arm was weak. When he tried to get up, he also noted left leg weakness and numbness of the left arm/leg at that time. He then noted some speech difficulty/slurring and left sided facial droop as well. His left leg weakness has improved as the morning went on, but his facial drooping and LUE weakness have persisted. His mother is with him in the ED. Patient states he did feel 'off balance' and slightly lightheaded this morning. He also notes some slightly blurred vision B/L eyes. He currently denies dizziness, lightheadedness, headache, N/V/D/C, abdominal pain, peripheral edema, or urinary symptoms. The patient was previously on Metformin and Atorvastatin from his PCP's office, but he states that he hasn't been taking that for months. He has no personal hx of stroke or clots. He does have an uncle who had a stroke but otherwise no family hx. Since presentation, the patient was noted to have elevated BP up to 208/111. The patient has no formal diagnosis of HTN as an outpatient. He is also tachycardic. Labs noted to be within norm other than hypokalemia down to 3.1 & elevated glucose. CT head, CTA head, and CTA neck are negative for acute stroke. ASA was given rectally. Plavix loading dose ordered but not given yet. ED physician spoke with [facility] who recommended 30 days of dual antiplatelet therapy, permissive HTN, and monitoring symptoms otherwise. Patient was out of the window for TPA. Allergies Allergy/AdvReac Type Severity Reaction Status Date / Time No Known Allergies Allergy Unknown Verified 02/26/17 21:05 Home Medications Home Medications Medication Instructions Recorded Confirmed Type aripiprazole 5 mg PO HS 12/29/19 12/29/19 History fluoxetine 80 mg PO HS 12/29/19 12/29/19 History gabapentin 300 mg PO HS 12/29/19 12/29/19 History mirtazapine 45 mg PO HS 12/29/19 12/29/19 History olanzapine 2.5 mg PO HS 12/29/19 12/29/19 History Past Med/Surg History Medical History (Updated 12/29/19 @ 19:06 by Cain Weiner MD) GRIFFIN (generalized anxiety disorder) Hyperlipidemia Major depressive disorder without psychotic features Type 2 diabetes mellitus Surgical History (Updated 12/29/19 @ 13:34 by Monse Hunter PA-C) History of lithotripsy S/P appendectomy Family History (Updated 12/29/19 @ 13:32 by Monse Hunter PA-C) Mother Depression Uncle Stroke Social History (Updated 12/29/19 @ 13:32 by Monse Hunter PA-C) Preferred Language: [place] Irish Communication Ability: Effective Beliefs That Will Affect Care: None Current Living Situation: Alone Other Information That Helps Us Care for You: No Feels Safe at Home: Yes Safety Concerns: Feels Safe At This Time Smoking Status: Never smoker Hx Alcohol Use: No Hx Substance Use: No Review of Systems Review of Systems: All systems reviewed & are unremarkable except as noted in HPI & below Physical Exam Physical Exam: See Dr. Kay's addendum for detailed exam. Constitutional: well developed and well nourished; no acute distress Eyes: PERRL, conjunctivae normal, anicteric sclerae ENMT: external ear and nose normal, oropharynx normal Neck: trachea midline, no thyromegaly Respiratory: normal respiratory effort; no respiratory distress and no labored breathing Cardiovascular: Rate/Rhythm: + tachycardic Musculoskeletal: LUE weakness compared to RUE. Lower extremities equal strength. No edema. B/L LE Skin: no rashes, warm and dry Neurologic: + focal motor deficit Speech / Cognition: + abnormal speech Left sided facial droop. Results & Data Results & Data ([facility]) Vital Signs (Past 12 Hours) Vital Signs Temp Pulse Resp BP Pulse Ox 12/29/19 13:00 116 H 23 188/109 H 12/29/19 12:45 120 H 205/126 H 96 12/29/19 12:15 109 H 206/103 H 12/29/19 12:00 108 H 200/99 H 12/29/19 11:45 114 H 207/99 H 12/29/19 11:36 120 H 12/29/19 11:35 120 H 208/111 H 12/29/19 10:58 36.6 C 134 H 16 193/110 H 95 Laboratory Results Laboratory Results - last 24 hr 12/29/19 12/29/19 12/29/19 11:21 11:21 11:21 WBC 9.56 RBC 5.15 Hgb 15.5 POC Hgb Hct 44.9 POC Hct MCV 87.2 MCH 30.1 MCHC 34.5 RDW Std Deviation 41.8 RDW Coeff of Timi 13.2 Plt Count 319 MPV 9.4 Immature Gran % (Auto) 0.3 Neut % (Auto) 59.1 Lymph % (Auto) 33.6 [place] % (Auto) 5.2 Eos % (Auto) 1.4 Baso % (Auto) 0.4 Immature Gran # (Auto) 0.03 H Neut # (Auto) 5.65 Lymph # (Auto) 3.21 [place] # (Auto) 0.50 Eos # (Auto) 0.13 Baso # (Auto) 0.04 PT 10.7 INR 1.0 APTT 22.1 PTT Ratio 0.8 POC Sodium Sodium POC Potassium Potassium POC Chloride Chloride Carbon Dioxide POC Total CO2 Anion Gap POC Anion Gap POC BUN BUN Creatinine POC Creatinine Est Cr Clr Drug Dosing Est GFR ( Amer) Est GFR (Non-Af Amer) BUN/Creatinine Ratio Glucose POC Glucose (other) Calcium POC Ioniz Calcium Mamie Magnesium Total Bilirubin AST ALT Alkaline Phosphatase Troponin I Total Protein Albumin Globulin Albumin/Globulin Ratio Blood Type A Positive Antibody Screen NEGATIVE 12/29/19 12/29/19 11:21 11:29 WBC RBC Hgb POC Hgb 16.0 Hct POC Hct 47 MCV MCH MCHC RDW Std Deviation RDW Coeff of Timi Plt Count MPV Immature Gran % (Auto) Neut % (Auto) Lymph % (Auto) [place] % (Auto) Eos % (Auto) Baso % (Auto) Immature Gran # (Auto) Neut # (Auto) Lymph # (Auto) [place] # (Auto) Eos # (Auto) Baso # (Auto) PT INR APTT PTT Ratio POC Sodium 143 Sodium 140 POC Potassium 3.1 L Potassium 3.1 L POC Chloride 105 Chloride 108 H Carbon Dioxide 23 POC Total CO2 21 L Anion Gap 9.0 POC Anion Gap 21.0 POC BUN 9 BUN 10 Creatinine 1.38 POC Creatinine 1.0 Est Cr Clr Drug Dosing 53.4 Est GFR ( Amer) 63.1 Est GFR (Non-Af Amer) 54.4 BUN/Creatinine Ratio 7.0 L Glucose 223 H POC Glucose (other) 228 H Calcium 9.1 POC Ioniz Calcium Mamie 1.16 Magnesium 2.1 Total Bilirubin 0.5 AST 24 ALT 40 Alkaline Phosphatase 83 Troponin I < 0.015 Total Protein 8.3 H Albumin 4.0 Globulin 4.3 H Albumin/Globulin Ratio 0.9 Blood Type Antibody Screen Diagnostic Findings CT Head: IMPRESSION: No acute intracranial abnormality. CTA Head: IMPRESSION: 1. No intraluminal thrombus or abrupt vessel cut off. 2. Mild asymmetric decreased caliber of the right P2 segment. This finding is age indeterminate. CTA NecK: IMPRESSION: No significant stenosis, occlusion, or dissection identified within the carotid or vertebral arteries. Code Status & VTE Plan VTE Prophylaxis Plan VTE Prophylaxis will be ordered: Yes Supervising Physician Co-Signing Physician Notes Patient is a 64-year-old male with history of diabetes, dyslipidemia and other medical problems presents with history of left-sided weakness, numbness, slurred speech and facial droop. Please review HPI for complete details of presentation. MRI of the brain showed acute to subacute infarct in the right basal ganglia/beal radiata. Patient is started on aspirin, Plavix while in ED. He is out of the window period for TPA. On examination patient is moderately built and nourished, normocephalic atraumatic,+ facial droop, normal facial sensation, left upper extremity weakness--3/5, alert awake and oriented, S1-S2, tachycardia, lungs are clear to auscultation, normal breath sounds, no pedal edema, no murmur, grossly no other focal neurological deficits. Patient is admitted for management of acute CVA, hypertensive urgency, hypokalemia. Started on aspirin, Plavix. Increase Lipitor to 40 mg daily. Echo, speech eval, neurology consulted. Replace potassium for hypokalemia. Will allow permissive hypertension in setting of acute CVA. Also noted to be febrile. No focal signs of infection. Will obtain Blood Cultures. I personally reviewed the record. Patient is interviewed and examined at bedside. Patient's care is coordinated with Monse Hunter PA-C. Please refer to the documentation above for details of patient's presentation and for discussion of other issues.
[2019-12-29] MEDS ORDERED: PHARMACIST DISCHARGE MED REC CONSULT PRN (13:24)
[2019-12-29] MEDS ORDERED: GLUCOSE 40% GEL 15 GM TUBE PO PRN (13:24)
[2019-12-29] MEDS ORDERED: CARBOHYDRATES FOR HYPOGLYCEMIA PO PRN (13:24)
[2019-12-29] MEDS ORDERED: GLUCAGON FOR INJ 1 MG VIAL SQ PRN (13:24)
[2019-12-29] MEDS ORDERED: GLUCOSE 10 TABS/TUBE PO PRN (13:24)
[2019-12-29] MEDS ORDERED: ACETAMINOPHEN 325 MG TAB PO PRN (13:24)
[2019-12-29] MEDS ORDERED: DEXTROSE 50% 50 ML SYRINGE IV PRN (13:24)
[2019-12-29] MEDS ORDERED: ACETAMINOPHEN 1000 MG/100 ML IV IV PRN (13:38)
[2019-12-29] MEDS ORDERED: NSS + 20MEQ KCL 20 MEQ/1,000 ML BAG IV SCH (14:00)
[2019-12-29 14:18] LABS: Estimated Average Glucose 180 mg/dl; Hemoglobin A1C 7.9 % (4.5-5.6)
[2019-12-29 14:59] LABS: Appearance Urine Clear (Clear); Bilirubin Urine Negative (Negative); Blood Urine Negative (Negative); Color Urine Yellow; Glucose Urine UA 3+ (Negative); Ketones Urine 1+ (Negative); Leukocyte Esterase Urine Negative (Negative); Nitrite Urine Negative (Negative); Protein Urine Negative (Negative); Specific Gravity Urine > 1.045 (1.000-1.030); Urobilinogen Urine Negative (Negative)
--- NOTE | 2019-12-29 15:33 | Neurology Consultation ---
Date of Consultation December 29, 2019 Assessment & Plan (1) Type 2 diabetes mellitus: (2) Hyperlipidemia: (3) Left-sided weakness: A 64 year old male with Hx of type II DM and HLD admitted for acute onset left sided weakness, numbness, and dysarthria secondary to an acute left MCA ischemic stroke. Etiology likely small vessel. Patient was the window for IV TPA. CT head negative. CTA head and neck showed no LVO. He was NOT on ASA prior to admission. NIHSS 4 (left facial droop, dysarthria, left upper extremity drift). - Recommend to continue ASA 81 mg daily and Plavix 75 mg daily for 21-days (Ok to use Plavix with Prozac; FLAME trial). - Continue high intensity statin, Lipitor 40 mg daily - HA1c 7.9, discussed with pt. Goal <7 - TTE completed. EF 60-65%. No cardiac source of embolism. No shunt. Mild LVH. - Recommend gradual reduction in blood pressure today with goal SBP<140, DBP< 90 mm Hg - Ok to transfer to floor with Q4hr neuro checks - PT/OT for Rehab Needs. - Speech for dietary recommendations. Aspiration precautions. - Continue telemetry while inpatient. Outpatient follow up in Neuro in 8 weeks. (4) Dysarthria: History of Present Illness Reason for Consultation: Left sided weakness, slurred speech Attending Physician: Mike Kay MD History of Present Illness A 64 year old male admitted for acute onset left sided weakness, facial droop, and slurred speech. Symptom onset was around 6- 7 AM on 12/29/19. The left leg weakness improved by the time he was evaluated in the ED. Hypertensive in the ED. CTA head and neck showed no acute stroke or LVO. Patient did not recieve IV TPA as he was outside the window. He has history of type II DM and depression/anxiety. He was admitted for evaluation of stroke. Neurology consulted on admission. He denies history of prior CVA or OH. He is a non smoker. Denies EtOH. No known Hx of CAMRYN. He was NOT on ASA at home prior to admission. Allergies Allergy/AdvReac Type Severity Reaction Status Date / Time No Known Allergies Allergy Unknown Verified 02/26/17 21:05 Home Medications Home Medications Medication Instructions Recorded Confirmed Type aripiprazole 5 mg PO HS 12/29/19 12/29/19 History fluoxetine 80 mg PO HS 12/29/19 12/29/19 History gabapentin 300 mg PO HS 12/29/19 12/29/19 History mirtazapine 45 mg PO HS 12/29/19 12/29/19 History olanzapine 2.5 mg PO HS 12/29/19 12/29/19 History Patient History Medical History (Updated 12/29/19 @ 19:06 by Cain Weiner MD) GRIFFIN (generalized anxiety disorder) Hyperlipidemia Major depressive disorder without psychotic features Type 2 diabetes mellitus Surgical History (Updated 12/29/19 @ 13:34 by Monse Hunter PA-C) History of lithotripsy S/P appendectomy Family History (Updated 12/29/19 @ 13:32 by Monse Hunter PA-C) Mother Depression Uncle Stroke Social History (Updated 12/29/19 @ 13:32 by Monse Hunter PA-C) Preferred Language: Romanian Communication Ability: Effective Beliefs That Will Affect Care: None Current Living Situation: Alone Other Information That Helps Us Care for You: No Feels Safe at Home: Yes Safety Concerns: Feels Safe At This Time Smoking Status: Never smoker Hx Alcohol Use: No Hx Substance Use: No Physical Exam Physical Exam: EXAM: Constitutional: appearance normally developed Face: normocephalic and atraumatic Eyes: normal lids, normal conjunctiva Neck: supple Respiratory: normal effort Cardiovascular: normal pulses Abdomen: non distended Skin: no rashes, lesions, or ulcers noted Psychiatric: normal mood and normal affect NEUROLOGIC EXAMINATION: Appearance: no acute distress Orientation: awake, alert and oriented x 3 Mental Status: alert Attention: normal Knowledge: appropriate Language: no aphasia Speech: mild dysarthria Cranial Nerves: CN 2 - no visual defect on confrontation and pupils round, equal, reactive to light CN 3, 4, 6 - extra-ocular movements intact CN 5 - facial sensation intact CN 7 - left facial droop CN 8 - intact hearing CN 9, 10 - palate symmetric CN 11 - good shoulder shrug CN 12 - tongue midline Gait:deferred Coordination: no ataxia with finger to nose testing Sensory: intact and symmetric to light touch Muscle Tone: normal Muscle exam: Right interosseous 4/5, otherwise 5/5; mild pronator drift in left upper extremity Reflexes: toe upgoing on the left Results & Data Vital Signs (Past 12 Hours) Vital Signs Temp Pulse Resp BP Pulse Ox 12/29/19 13:33 38.1 C H 20 12/29/19 13:30 123 H 17 12/29/19 13:26 119 H 28 H 217/113 H 12/29/19 13:22 112 H 25 H 190/103 H 12/29/19 13:14 38.1 C H 211/104 H 12/29/19 13:01 115 H 95 12/29/19 13:00 116 H 23 188/109 H 12/29/19 12:45 120 H 205/126 H 96 12/29/19 12:15 109 H 206/103 H 95 12/29/19 12:00 108 H 200/99 H 12/29/19 11:45 114 H 207/99 H 12/29/19 11:36 120 H 95 12/29/19 11:35 120 H 208/111 H 95 12/29/19 10:58 36.6 C 134 H 16 193/[address] H [address] head non contrast reviewed. Normal appearing CT head. No hemorrhage. CTA head and neck: No LVO or high grade stenosis. MRI brain wo reviewed: Acute to subacute left MCA ischemic stroke involving the left basal ganglia and beal radiata
[2019-12-29 15:43] LABS: Amphetamines+Metham, Urine Neg (Neg); Barbiturates, Urine Neg (Neg); Benzodiazepine, Urine Neg (Neg); Cocaine, Urine Neg (Neg); MDMA (Ecstacy), Urine Neg (Neg); Methadone, Urine Neg (Neg); Opiate, Urine Neg (Neg); Phencyclidine, Urine Neg (Neg)
[2019-12-29] MEDS ORDERED: GADOBUTROL 65ML VIAL IV PRN (15:44)
[2019-12-29] MEDS ORDERED: CLOPIDOGREL BISULFATE 75 MG TAB PO ONE (15:45)
--- NOTE | 2019-12-29 16:13 | Magnetic Resonance Report ---
MRI OF THE BRAIN COMBO CLINICAL HISTORY: Strokelike symptoms. COMPARISON STUDY: CT of the brain performed the same day 12/29/2019. TECHNIQUE: MRI of the brain was performed utilizing various T1 and T2-weighted sequences in the axial , sagittal, and coronal planes. Contrast-enhanced sequences were acquired following the administratio n of 9.2 cc of Gadavist. FINDINGS: Brain parenchyma: There is an approximately 2.5 cm region of restricted diffusion identified within t he right beal radiata and basal ganglia consistent with acute to subacute ischemia. No additional f oci of restricted diffusion are identified. There is no hemorrhage or mass effect. No enhancing mass lesion is identified on the postcontrast images. Minimal microangiopathic changes noted. No extra-axi al fluid collection is seen. The cerebellar tonsils are normal in configuration. Ventricles, sulci, and cisterns: Normal in configuration. Pituitary and sella: Unremarkable. Intracranial vasculature: Normal flow voids are maintained at the skull base. Orbits: The bony orbits are grossly intact. Orbital contents are normal in appearance. Sinuses and mastoids: Clear. Calvarium: Unremarkable. Cervical cord: Partially visualized cervical spinal cord is normal in morphology and signal intensity . IMPRESSION: 1. There is an acute to subacute infarct in the right basal ganglia/beal radiata as above. 2. No additional foci of acute ischemia are identified. 3. There is no hemorrhage or mass effect. ACT 112: Negative or not required by law. Electronically signed by: Familia Carroll M.D. 12/29/2019 4:11 PM
[2019-12-29] MEDS: POTASSIUM CHLORIDE / WTR 10 MEQ/100 ML PLCT IV SCH ×2 (16:28→17:39)
[2019-12-29] MEDS: INSULIN ASPART 100 UNITS/ML 3 ML PEN SC SCH (17:45)
--- NOTE | 2019-12-29 18:16 | XCELERA ---
[id number]
--- NOTE | 2019-12-29 19:21 | Electrocardiogram Report ---
Test Reason : Blood Pressure : / mmHG Vent. Rate : 120 BPM Atrial Rate : 120 BPM P-R Int : 160 ms QRS Dur : 100 ms QT Int : 330 ms P-R-T Axes : 053 035 047 degrees QTc Int : 466 ms Sinus tachycardia Possible Left atrial enlargement Nonspecific ST and T wave abnormality Abnormal ECG When compared with ECG of 13-SEP-2008 13:56, Vent. rate has increased BY 40 BPM Nonspecific T wave abnormality now evident in Inferior leads Confirmed by Parish Shannon ([id number]) on 12/29/2019 7:20:56 PM Referred By: REFERRED SELF Confirmed By:Tremayne Shannon
[2019-12-29] MEDS: ARIPiprazole 5 MG TAB PO SCH (21:29)
[2019-12-29] MEDS: MIRTAZAPINE SOLTAB 15 MG PO SCH (21:29)
[2019-12-29] MEDS: GABAPENTIN 300 MG CAP PO SCH (21:29)
[2019-12-29] MEDS: OLANZAPINE 2.5 MG TAB PO SCH (21:30)
[2019-12-29] MEDS: INSULIN GLARGINE SOLOSTAR 100 UNITS/ML 3 ML PEN SC SCH (21:31)
[2019-12-29] MEDS: FLUOXETINE HCL 20 MG CAP PO SCH (23:28)
[2019-12-30] MEDS: INSULIN ASPART 100 UNITS/ML 3 ML PEN SC SCH ×5 (00:07→21:04)
[2019-12-30 04:45] LABS: Basophils # (auto) 0.05 K/uL (0-0.2); Basophils % (auto) 0.4 %; Eosinophils # (auto) 0.02 K/uL (0-0.5); Eosinophils % (auto) 0.2 %; Hematocrit (blood only) 44.2 % (42-52); Hemoglobin 14.4 g/dL (14.0-18.0); Immature Granulocytes # (auto) 0.03 K/uL (0.00-0.02); Immature Granulocytes % (auto) 0.2 %; Lymphocytes # (auto) 2.84 K/uL (1.2-3.4); Lymphocytes % (auto) 23.6 %; Mean Corpuscular Hemoglobin 28.9 pg (25-34); Mean Corpuscular Hgb Conc 32.6 g/dL (32-36); Mean Corpuscular Volume 88.6 fL (80-100); Mean Platelet Volume 9.4 fL (7.4-10.4); Monocytes # (auto) 1.06 K/uL (0.11-0.59); Monocytes % (auto) 8.8 %; Neutrophils # (auto) 8.04 K/uL (1.4-6.5); Neutrophils % (auto) 66.8 %; Platelet Count 308 K/uL (130-400); RDW Coefficient of Variation 13.7 % (11.5-14.5); RDW Standard Deviation 44.2 fL (36.4-46.3); Red Blood Count 4.99 M/uL (4.7-6.1); White Blood Count 12.04 K/uL (4.8-10.8)
[2019-12-30 05:19] LABS: BUN Creatinine Ratio 14.3 (10-20); Calcium 8.8 mg/dl (8.5-10.1); Creatinine Clr Calc Pharmacy 92.4 ml/min; Est GFR (African American) 97.8; Est GFR (Non-African American) 84.4; Potassium 3.6 mmol/L (3.5-5.1)
[2019-12-30 05:42] LABS: Thyroid Stimulating Hormone 1.59 uIu/ml (0.300-4.500)
[2019-12-30] MEDS: INSULIN GLARGINE SOLOSTAR 100 UNITS/ML 3 ML PEN SC SCH ×2 (07:55→21:05)
[2019-12-30] MEDS: ATORVASTATIN 40 MG TAB PO SCH (07:58)
[2019-12-30] MEDS: ASPIRIN 81 MG ECTAB PO SCH (07:58)
[2019-12-30] MEDS: CLOPIDOGREL BISULFATE 75 MG TAB PO SCH (08:51)
[2019-12-30] MEDS ORDERED: Nursing to Pharmacy Communication SCH (12:45)
[2019-12-30] MEDS ORDERED: METOPROLOL TARTRATE 25 MG TAB PO SCH (15:40)
[2019-12-30] MEDS ORDERED: lisinopriL 5 MG TAB PO SCH (16:00)
--- NOTE | 2019-12-30 16:12 | Hospitalist Progress Note ---
Date of Service December 30, 2019 Assessment & Plan (1) Cerebrovascular accident (CVA) of right basal ganglia: (2) Stroke-like symptoms: Present on admission with left upper and lower extremities weakness associated with left facial droop and slurred speech CTA neck showed no significant stenosis, occlusion, or dissection identified within the carotid or vertebral arteries. CTA head showed no acute intracranial hemorrhage, midline shift or mass effect is present. CT head showed no intracranial abnormality MRI showed an approximately 2.5 cm region of restricted diffusion identified within the right beal radiata and basal ganglia consistent with acute to subacute ischemia. Stroke alert was called and ER physician communicate with telestroke in [place] No TPA given in the ER because pt was out of the window Received aspirin 300mg on admission Neuro on board Recommend to continue ASA 81 mg daily and Plavix 75 mg daily for 21-days (Ok to use Plavix with Prozac; FLAME trial). Continue high intensity statin, Lipitor 40 mg daily Echocardiogram showed mild concentric left ventricular hypertrophy. The left ventricle is hyperdynamic. no cardiac source of embolism and no shunt were noted Will gradually decrease BP today PT/OT on board and recommended inpatient rehab Speech on board recommended puree diet and nectar thick liquid for now Aspiration precaution Fall precaution Continue monitor in tele Follow up with neuro in 4 to 6 weeks (3) Hypertensive urgency: BP on admission 208/111 BP elevated to allow permissive hypertensive Neuro recommended gradual reduction of blood pressure today Starting on Lisinopril 5mg Will continue monitor BP Check BMP in am (4) Hypokalemia: Potassium 3.1 upon admission. K replaced on admission K 3.6 today Continue monitor BP (5) Type 2 diabetes mellitus: Patient with DM. Currently not taking outpatient Metformin. Hasn't seen PCP in >1 year. Recent hba1c 7.9 Continue Insulin protocol with novolog and Lantus Will restart Metformin on discharge Continue monitor BS (6) Hyperlipidemia: Continue statin 40mg daily (7) Major depressive disorder without psychotic features: (8) GRIFFIN (generalized anxiety disorder): Continue home meds. Stable (9) DVT prophylaxis: SCDs Will start on subq heparin subq Disposition Plan to discharge to rehab Will check COVID 19 (for placement ) Admission and Anticipated Discharge Date Admission Date: December 29, 2019 Subjective Pt was seen and examined Lying in bed with no distress Pt said that his speech is a little better today He said that he was a little unsteady walking with therapy today Denies any chest pain, palpitation, dizziness and SOB Physical Exam Physical Exam: General- No acute distress Head- atraumatic Eyes- PERRL, EOMI, ENT- oropharynx clear Neck- supple, no JVD Lungs- clear to auscultation Heart- +tachycardia Abdomen- normal bowel sounds, soft, nontender Extremities- no calf tenderness, No edema Neuro- alert, oriented x 3; PERRL, EOMI; no facial palsy; Mild dysarthria, finger to nose intake Skin- warm & dry Results & Data Results & Data ([facility]) Vital Signs (Past 12 Hours) Vital Signs Temp Pulse Pulse Pulse Resp BP Pulse Ox 12/30/19 15:05 37.2 C 98 H 28 H 176/102 H 92 12/30/19 12:20 36.8 C 106 H 20 175/104 H 92 12/30/19 08:00 98 H 12/30/19 07:21 37.3 C 89 18 187/98 H 95
[2019-12-30] MEDS: ARIPiprazole 5 MG TAB PO SCH (21:02)
[2019-12-30] MEDS: GABAPENTIN 300 MG CAP PO SCH (21:02)
[2019-12-30] MEDS: OLANZAPINE 2.5 MG TAB PO SCH (21:03)
[2019-12-30] MEDS: FLUOXETINE HCL 20 MG CAP PO SCH (21:03)
[2019-12-30] MEDS: MIRTAZAPINE SOLTAB 15 MG PO SCH (21:03)
[2019-12-30] MEDS: HEPARIN SOD 5,000 UNIT/0.5 ML VIAL SQ SCH (21:06)
[2019-12-31] MEDS ORDERED: lisinopriL 5 MG TAB PO SCH (01:30)
[2019-12-31] MEDS: HEPARIN SOD 5,000 UNIT/0.5 ML VIAL SQ SCH ×3 (06:24→20:51)
[2019-12-31 07:25] LABS: Basophils # (auto) 0.05 K/uL (0-0.2); Basophils % (auto) 0.6 %; Eosinophils # (auto) 0.11 K/uL (0-0.5); Eosinophils % (auto) 1.2 %; Hematocrit (blood only) 45.1 % (42-52); Hemoglobin 15.3 g/dL (14.0-18.0); Immature Granulocytes # (auto) 0.03 K/uL (0.00-0.02); Immature Granulocytes % (auto) 0.3 %; Lymphocytes # (auto) 3.28 K/uL (1.2-3.4); Lymphocytes % (auto) 36.1 %; Mean Corpuscular Hemoglobin 30.5 pg (25-34); Mean Corpuscular Hgb Conc 33.9 g/dL (32-36); Mean Corpuscular Volume 89.8 fL (80-100); Mean Platelet Volume 9.6 fL (7.4-10.4); Monocytes # (auto) 0.79 K/uL (0.11-0.59); Monocytes % (auto) 8.7 %; Neutrophils # (auto) 4.83 K/uL (1.4-6.5); Neutrophils % (auto) 53.1 %; Platelet Count 288 K/uL (130-400); RDW Coefficient of Variation 13.6 % (11.5-14.5); RDW Standard Deviation 44.9 fL (36.4-46.3); Red Blood Count 5.02 M/uL (4.7-6.1); White Blood Count 9.09 K/uL (4.8-10.8)
[2019-12-31 07:53] LABS: BUN Creatinine Ratio 16.5 (10-20); Calcium 8.9 mg/dl (8.5-10.1); Creatinine Clr Calc Pharmacy 74.2 ml/min; Est GFR (African American) 82.9; Est GFR (Non-African American) 71.6; Potassium 3.7 mmol/L (3.5-5.1)
[2019-12-31] MEDS: INSULIN ASPART 100 UNITS/ML 3 ML PEN SC SCH ×4 (08:05→20:52)
[2019-12-31] MEDS: ASPIRIN 81 MG ECTAB PO SCH (08:05)
[2019-12-31] MEDS: CLOPIDOGREL BISULFATE 75 MG TAB PO SCH (08:05)
[2019-12-31] MEDS: ATORVASTATIN 40 MG TAB PO SCH (08:05)
[2019-12-31] MEDS: INSULIN GLARGINE SOLOSTAR 100 UNITS/ML 3 ML PEN SC SCH ×2 (08:06→20:51)
--- NOTE | 2019-12-31 17:12 | Hospitalist Progress Note ---
Date of Service December 31, 2019 Assessment & Plan (1) Cerebrovascular accident (CVA) of right basal ganglia: (2) Stroke-like symptoms: Present on admission with left upper and lower extremities weakness associated with left facial droop and slurred speech CTA neck showed no significant stenosis, occlusion, or dissection identified within the carotid or vertebral arteries. CTA head showed no acute intracranial hemorrhage, midline shift or mass effect is present. CT head showed no intracranial abnormality MRI showed an approximately 2.5 cm region of restricted diffusion identified within the right beal radiata and basal ganglia consistent with acute to subacute ischemia. Stroke alert was called and ER physician communicate with telestroke in [place] No TPA given in the ER because pt was out of the window Received aspirin 300mg on admission Neuro on board Recommend to continue ASA 81 mg daily and Plavix 75 mg daily for 21-days (Ok to use Plavix with Prozac; FLAME trial). Continue high intensity statin, Lipitor 40 mg daily Echocardiogram showed mild concentric left ventricular hypertrophy. The left ventricle is hyperdynamic. no cardiac source of embolism and no shunt were noted Will gradually decrease BP today PT/OT on board and recommended inpatient rehab Speech on board recommended puree diet and nectar thick liquid for now Aspiration precaution Fall precaution Continue monitor in tele Follow up with neuro in 4 to 6 weeks (3) Hypertensive urgency: BP on admission 208/111 BP elevated to allow permissive hypertensive Neuro recommended gradual reduction of blood pressure today Starting on Lisinopril 5mg, will continue BP improved 145/93 Will consider to increase lisinopril to 10mg if BP remains elevate Continue monitor BP (4) Hypokalemia: Potassium 3.1 upon admission. K replaced on admission K 3.7 today Continue monitor electrolytes (5) Type 2 diabetes mellitus: Patient with DM. Currently not taking outpatient Metformin. Hasn't seen PCP in >1 year. Recent hba1c 7.9 Continue Insulin protocol with novolog and Lantus Will restart Metformin on discharge Diabetic education consut Continue monitor BS (6) Hyperlipidemia: Continue statin 40mg daily (7) Major depressive disorder without psychotic features: (8) GRIFFIN (generalized anxiety disorder): Continue home meds. Stable (9) DVT prophylaxis: SCDs On subq heparin subq Disposition Plan to discharge to rehab No need for COVID 19 test if transferring to [facility] as per case management Admission and Anticipated Discharge Date Admission Date: December 29, 2019 Subjective Pt was seen and examined Lying in bed with no distress Pt said that he feels a little better Denies any chest pain, palpitation, dizziness and SOB Physical Exam Physical Exam: General- No acute distress Head- atraumatic Eyes- PERRL, EOMI, ENT- oropharynx clear Neck- supple, no JVD Lungs- clear to auscultation Heart- +tachycardia Abdomen- normal bowel sounds, soft, nontender Extremities- no calf tenderness, No edema Neuro- alert, oriented x 3; PERRL, EOMI; no facial palsy; Mild dysarthria, finger to nose intake Skin- warm & dry Results & Data Results & Data ([facility]) Vital Signs (Past 12 Hours) Vital Signs Temp Pulse Pulse Pulse Resp BP BP 12/31/19 15:27 37.0 C 96 H 23 145/93 H 12/31/19 15:16 97 H 12/31/19 11:56 36.9 C 93 H 18 171/97 H 12/31/19 08:00 82 12/31/19 07:55 36.7 C 74 17 172/99 H 170/96 H Pulse Ox 12/31/19 15:27 95 12/31/19 15:16 12/31/19 11:56 93 12/31/19 08:00 12/31/19 07:55 94
[2019-12-31] MEDS: OLANZAPINE 2.5 MG TAB PO SCH (20:42)
[2019-12-31] MEDS: GABAPENTIN 300 MG CAP PO SCH (20:42)
[2019-12-31] MEDS: MIRTAZAPINE SOLTAB 15 MG PO SCH (20:42)
[2019-12-31] MEDS: ARIPiprazole 5 MG TAB PO SCH (20:43)
[2019-12-31] MEDS: FLUOXETINE HCL 20 MG CAP PO SCH (20:44)
[2020-01-01] MEDS: HEPARIN SOD 5,000 UNIT/0.5 ML VIAL SQ SCH ×2 (05:29→13:39)
[2020-01-01 07:48] LABS: Basophils # (auto) 0.07 K/uL (0-0.2); Basophils % (auto) 0.8 %; Eosinophils # (auto) 0.21 K/uL (0-0.5); Eosinophils % (auto) 2.4 %; Hematocrit (blood only) 45.4 % (42-52); Hemoglobin 15.3 g/dL (14.0-18.0); Immature Granulocytes # (auto) 0.02 K/uL (0.00-0.02); Immature Granulocytes % (auto) 0.2 %; Lymphocytes # (auto) 2.87 K/uL (1.2-3.4); Lymphocytes % (auto) 33.4 %; Mean Corpuscular Hgb Conc 33.7 g/dL (32-36); Mean Platelet Volume 9.6 fL (7.4-10.4); Monocytes # (auto) 0.66 K/uL (0.11-0.59); Monocytes % (auto) 7.7 %; Neutrophils # (auto) 4.77 K/uL (1.4-6.5); Neutrophils % (auto) 55.5 %; Platelet Count 280 K/uL (130-400); RDW Coefficient of Variation 13.3 % (11.5-14.5); RDW Standard Deviation 43.8 fL (36.4-46.3)
[2020-01-01 08:22] LABS: BUN Creatinine Ratio 19.8 (10-20); Calcium 8.8 mg/dl (8.5-10.1); Creatinine Clr Calc Pharmacy 79.7 ml/min; Est GFR (Non-African American) 70.8; Potassium 3.4 mmol/L (3.5-5.1)
[2020-01-01] MEDS: INSULIN ASPART 100 UNITS/ML 3 ML PEN SC SCH ×2 (08:27→12:16)
[2020-01-01] MEDS: CLOPIDOGREL BISULFATE 75 MG TAB PO SCH (08:28)
[2020-01-01] MEDS: ATORVASTATIN 40 MG TAB PO SCH (08:28)
[2020-01-01] MEDS: INSULIN GLARGINE SOLOSTAR 100 UNITS/ML 3 ML PEN SC SCH (08:28)
[2020-01-01] MEDS: ASPIRIN 81 MG ECTAB PO SCH (08:28)
[2020-01-01] MEDS ORDERED: lisinopriL 10 MG TAB PO SCH (09:00)
[2020-01-01 12:00] VITALS: TEMP 97.7
[2020-01-01 12:32] VITALS: O2SAT 93
[2020-01-01] MEDS ORDERED: POTASSIUM CHLORIDE 20 MEQ TABCR PO ONE (12:45)
--- NOTE | 2020-01-01 14:19 | Hospitalist Progress Note ---
Date of Service January 01, 2020 Assessment & Plan (1) Cerebrovascular accident (CVA) of right basal ganglia: (2) Stroke-like symptoms: Present on admission with left upper and lower extremities weakness associated with left facial droop and slurred speech CTA neck showed no significant stenosis, occlusion, or dissection identified within the carotid or vertebral arteries. CTA head showed no acute intracranial hemorrhage, midline shift or mass effect is present. CT head showed no intracranial abnormality MRI showed an approximately 2.5 cm region of restricted diffusion identified within the right beal radiata and basal ganglia consistent with acute to subacute ischemia. Stroke alert was called and ER physician communicate with telestroke in [place] No TPA given in the ER because pt was out of the window Received aspirin 300mg on admission Neuro on board Recommend to continue ASA 81 mg daily and Plavix 75 mg daily for 21-days (Ok to use Plavix with Prozac; FLAME trial). Continue high intensity statin, Lipitor 40 mg daily Echocardiogram showed mild concentric left ventricular hypertrophy. The left ventricle is hyperdynamic. no cardiac source of embolism and no shunt were noted PT/OT on board and recommended inpatient rehab Speech on board recommended puree diet and nectar thick liquid for now Aspiration precaution Fall precaution Continue monitor in tele Follow up with neuro in 4 to 6 weeks (3) Hypertensive urgency: BP on admission 208/111 BP elevated to allow permissive hypertensive Neuro recommended gradual reduction of blood pressure today Lisinopril increased to 10mg daily BP improved 145/63 today Continue monitor BP (4) Hypokalemia: Potassium 3.1 upon admission. K 3.4 today, Potassium replaced Continue monitor electrolytes (5) Type 2 diabetes mellitus: Patient with DM. Currently not taking outpatient Metformin. Hasn't seen PCP in >1 year. Recent hba1c 7.9 He was on metformin 850mg BID Continue Insulin protocol with novolog and Lantus Will start on Metformin 500mg Xr daily on discharge, then increase on week 2 if able tolerates Diabetic education Will need to get outpatient diabetes eyes exam Continue monitor BS (6) Hyperlipidemia: Continue statin 40mg daily (7) Major depressive disorder without psychotic features: (8) GRIFFIN (generalized anxiety disorder): Continue home meds. Stable (9) DVT prophylaxis: SCDs On subq heparin subq Disposition Plan to discharge to rehab today No need for COVID 19 test if transferring to [facility] as per case management Admission and Anticipated Discharge Date Admission Date: December 29, 2019 Subjective Pt was seen and examined Sitting in chair with no distress Pt said that he is feeling a little better today His diet was advanced today Denies any chest pain, palpitation, dizziness and sob Physical Exam Physical Exam: General- No acute distress Head- atraumatic Eyes- PERRL, EOMI, ENT- oropharynx clear Neck- supple, no JVD Lungs- clear to auscultation Heart- regular heart rate Abdomen- normal bowel sounds, soft, nontender Extremities- no calf tenderness, No edema Neuro- alert, oriented x 3; PERRL, EOMI; no facial palsy; Mild dysarthria, finger to nose intake Skin- warm & dry Results & Data Results & Data ([facility]) Vital Signs (Past 12 Hours) Vital Signs Temp Pulse Pulse Pulse Resp BP BP 01/01/20 12:17 01/01/20 11:59 36.5 C 68 18 145/63 H 01/01/20 08:09 36.8 C 88 18 133/69 01/01/20 08:00 87 01/01/20 04:46 168/92 H 01/01/20 04:12 36.4 C L 87 18 190/116 H Pulse Ox 01/01/20 12:17 93 01/01/20 11:59 01/01/20 08:09 96 01/01/20 08:00 01/01/20 04:46 01/01/20 04:12 95
[2020-01-01] MEDS ORDERED: STROKE PATIENT DISCHARGE STA (14:39)
[2020-01-01 14:48] VITALS: BP 190/116; PULSE 87
--- NOTE | 2020-01-01 14:52 | Discharge Summary ---
Date of Service January 01, 2020 Admission HPI Per Admitting Provider Patient is a 64 yo male with history of Type 2 DM, hyperlipidemia, depression without psychotic feature, Anxiety disorder, and social phobia who presented to the ED with stroke-like symptoms. He states that he noticed his symptoms this morning around 6 or 7 AM. He was trying to roll in bed and noticed that his left arm was weak. When he tried to get up, he also noted left leg weakness and numbness of the left arm/leg at that time. He then noted some speech difficulty/slurring and left sided facial droop as well. His left leg weakness has improved as the morning went on, but his facial drooping and LUE weakness elias ve persisted. His mother is with him in the ED. Patient states he did feel 'off balance' and slightly lightheaded this morning. He also notes some slightly blurred vision B/L eyes. He currently denies dizziness, lightheadedness, headache, N/V/D/C, abdominal pain, peripheral edema, or urinary symptoms. The patient was previously on Metformin and Atorvastatin from his PCP's office, but he states that he hasn't been taking that for months. He has no personal hx of stroke or clots. He does have an uncle who had a stroke but otherwise no family hx. Since presentation, the patient was noted to have elevated BP up to 208/111. The patient has no formal diagnosis of HTN as an outpatient. He is also tachycardic. Labs noted to be within norm other than hypokalemia down to 3.1 & elevated glucose. CT head, CTA head, and CTA neck are negative for acute stroke. ASA was given rectally. Plavix loading dose ordered but not given yet. ED physician spoke with [facility] who recommended 30 days of dual antiplatelet therapy, permissive HTN, and monitoring symptoms otherwise. Patient was out of the window for TPA. Admission Exam Per Admitting Provider Constitutional: well developed and well nourished; no acute distress Eyes: PERRL, conjunctivae normal, anicteric sclerae ENMT: external ear and nose normal, oropharynx normal Neck: trachea midline, no thyromegaly Respiratory: normal respiratory effort; no respiratory distress and no labored breathing Cardiovascular: Rate/Rhythm: + tachycardic Musculoskeletal: LUE weakness compared to RUE. Lower extremities equal strength. No edema. B/L LE Skin: no rashes, warm and dry Neurologic: + focal motor deficit Speech / Cognition: + abnormal speech Left sided facial droop. Principal Diagnosis Follow up with your primary care provider once discharge from rehab Follow up with [facility] neurology in 4 to 6 weeks Continue physical and occupational therapy Continue Aspirin 81 mg daily and Plavix 75 mg daily for 21-days, then after 21 days continue aspirin only Continue speech therapy (Continue minced and moist diet ) Continue monitor your blood pressure (Your physician will adjust your blood pressure medication) Continue monitor your blood sugar (Your physician will titrate the metformin on week 2 if you able to tolerate it) Follow up a healthy diabetic diet and limited concentrated sweet intake Check Hba1c in 3 months Fall precaution Aspiration precaution Monitor for any abnormal bleeding such as blood in your urine and stools since starting on aspirin and plavis If develops any abnormal bleeding, please seek medical attention Check BMP in 1 week to monitor your electrolytes Check LFT in 1to 2 weeks to monitor your liver enzymes since starting on statin Discharge Exam General- No acute distress Head- atraumatic Eyes- PERRL, EOMI, ENT- oropharynx clear Neck- supple, no JVD Lungs- clear to auscultation Heart- regular heart rate Abdomen- normal bowel sounds, soft, nontender Extremities- no calf tenderness, No edema Neuro- alert, oriented x 3; PERRL, EOMI; no facial palsy; Mild dysarthria, finger to nose intake Skin- warm & dry Discharge Data Allergies Allergy/AdvReac Type Severity Reaction Status Date / Time No Known Allergies Allergy Unknown Verified 02/26/17 21:05 Consultations 12/29/19 12:24 ED Decision to Admit Stat 12/29/19 13:24 Consult Case Management - Discharge Planning Routine Consult Neurology Routine Ordered Studies 12/29/19 11:09 CT angio head w con Stat CT angio neck with con Stat CT head/brain wo con Stat 12/29/19 13:24 MR brain wo/w con Routine CT head/brain wo con CLINICAL HISTORY: 64 years-old Male with Stroke evaluation . Acute strokelike symptoms TECHNIQUE: Multiple axial CT images of the head were obtained without contrast. A dose lowering technique was utilized adhering to the principles of ALARA. COMPARISON: CTA head and neck of same day FINDINGS: No acute intracranial hemorrhage, midline shift, intracranial mass, hydrocephalus, territorial ischemia or abnormal extra-axial collection. Cerebral vascular calcifications are noted. The calvarium is intact. The paranasal sinuses, mastoid air cells, and middle ear cavities are clear. IMPRESSION: No acute intracranial abnormality. ACT 112: Negative or not required by law. The above report was generated using voice recognition software. It may contain grammatical, syntax or spelling errors. Electronically signed by: Yaya Collazo M.D. 12/29/2019 11:40 AM Dictated: 12/29/19 1138 Transcribed: 12/29/19 1138 CTA ANGIOGRAPHY OF THE HEAD CLINICAL HISTORY: Stroke evaluation COMPARISON STUDY: No previous studies for comparison. TECHNIQUE: Helical axial images of the head were obtained following uneventful intravenous administration of 120 cc of Optiray 320. Sagittal and coronal reconstructions were viewed as well as maximal intensity projections on an independent 3-D workstation. Automated exposure control was utilized for the study. A dose lowering technique was utilized adhering to the principles of ALARA. FINDINGS: No acute intracranial hemorrhage, midline shift or mass effect is present. Ventricular system is normal. Basilar cisterns are patent. There are no extra-axial collections. The bilateral M1, M2, A1 and A2 segments are patent. No intraluminal thrombus is noted. There is no abrupt vessel cut off. No intracranial aneurysm is identified. The right vertebral artery is dominant. The left is hypoplastic. There is mild asymmetric decreased caliber of the right P2 segment. IMPRESSION: 1. No intraluminal thrombus or abrupt vessel cut off. 2. Mild asymmetric decreased caliber of the right P2 segment. This finding is age indeterminate. ACT 112: Negative or not required by law. Electronically signed by: Gerald Boyce M.D. 12/29/2019 11:47 AM Dictated: 12/29/19 1140 Transcribed: 12/29/[address] angio neck with con HISTORY: Mental status change Stroke evaluation TECHNIQUE: Multiaxial CT angiography of the neck was performed IV contrast: 120 cc nonionic All measurements were calculated based on NASCET criteria. Maximum intensity projection images were also obtained. A dose lowering technique was utilized adhering to the principles of ALARA. COMPARISON STUDY: None. FINDINGS: The aortic arch and proximal great vessels are widely patent. There is no significant stenosis, occlusion, or dissection identified within the bilateral common carotid, internal carotid, or vertebral arteries. 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 ACT 112: Negative or not required by law. The above report was generated using voice recognition software. It may contain grammatical, syntax or spelling errors. Electronically signed by: Chris Palacio M.D. 12/29/2019 11:44 AM Dictated: 12/29/19 1140 Transcribed: 12/29/19 1140 XR chest 1V portable HISTORY: 64 years-old Male stroke symptoms acute strokelike symptoms COMPARISON: CT abdomen and pelvis 02/26/2017 TECHNIQUE: Portable AP view of the chest FINDINGS: Cardiomediastinal and hilar silhouettes are within normal limits. There is no pneumothorax, pleural effusion, airspace consolidation or overt pulmonary edema. Bones of the chest appear grossly intact. IMPRESSION: No acute process. ACT 112: Negative or not required by law. The above report was generated using voice recognition software. It may contain grammatical, syntax or spelling errors. Electronically signed by: Yaya Collazo M.D. 12/29/2019 12:40 PM Dictated: 12/29/19 1239 Transcribed: 12/29/19 1239 MRI OF THE BRAIN COMBO CLINICAL HISTORY: Strokelike symptoms. COMPARISON STUDY: CT of the brain performed the same day 12/29/2019. TECHNIQUE: MRI of the brain was performed utilizing various T1 and T2-weighted sequences in the axial, sagittal, and coronal planes. Contrast-enhanced sequences were acquired following the administration of 9.2 cc of Gadavist. FINDINGS: Brain parenchyma: There is an approximately 2.5 cm region of restricted diffusion identified within the right beal radiata and basal ganglia consistent with acute to subacute ischemia. No additional foci of restricted diffusion are identified. There is no hemorrhage or mass effect. No enhancing mass lesion is identified on the postcontrast images. Minimal microangiopathic changes noted. No extra-axial fluid collection is seen. The cerebellar tonsils are normal in configuration. Ventricles, sulci, and cisterns: Normal in configuration. Pituitary and sella: Unremarkable. Intracranial vasculature: Normal flow voids are maintained at the skull base. Orbits: The bony orbits are grossly intact. Orbital contents are normal in appearance. Sinuses and mastoids: Clear. Calvarium: Unremarkable. Cervical cord: Partially visualized cervical spinal cord is normal in morphology and signal intensity. IMPRESSION: 1. There is an acute to subacute infarct in the right basal ganglia/beal radiata as above. 2. No additional foci of acute ischemia are identified. 3. There is no hemorrhage or mass effect. ACT 112: Negative or not required by law. Electronically signed by: Familia Carroll M.D. 12/29/2019 4:11 PM Dictated: 12/29/19 1607 Transcribed: 12/29/19 1607 Hospital Course (1) Cerebrovascular accident (CVA) of right basal ganglia: (2) Stroke-like symptoms: Present on admission with left upper and lower extremities weakness associated with left facial droop and slurred speech CTA neck showed no significant stenosis, occlusion, or dissection identified within the carotid or vertebral arteries. CTA head showed no acute intracranial hemorrhage, midline shift or mass effect is present. CT head showed no intracranial abnormality MRI showed an approximately 2.5 cm region of restricted diffusion identified within the right beal radiata and basal ganglia consistent with acute to subacute ischemia. Stroke alert was called and ER physician communicate with telestroke in [place] No TPA given in the ER because pt was out of the window Received aspirin 300mg on admission Neuro on board Recommend to continue ASA 81 mg daily and Plavix 75 mg daily for 21-days (Ok to use Plavix with Prozac; FLAME trial). Continue high intensity statin, Lipitor 40 mg daily Echocardiogram showed mild concentric left ventricular hypertrophy. The left ventricle is hyperdynamic. no cardiac source of embolism and no shunt were noted PT/OT on board and recommended inpatient rehab Speech on board recommended puree diet and nectar thick liquid for now Aspiration precaution Fall precaution Continue monitor in tele Follow up with neuro in 4 to 6 weeks (3) Hypertensive urgency: BP on admission 208/111 BP elevated to allow permissive hypertensive Neuro recommended gradual reduction of blood pressure today Lisinopril increased to 10mg daily BP improved 145/63 today Continue monitor BP (4) Hypokalemia: Potassium 3.1 upon admission. K 3.4 today, Potassium replaced Continue monitor electrolytes (5) Type 2 diabetes mellitus: Patient with DM. Currently not taking outpatient Metformin. Hasn't seen PCP in >1 year. Recent hba1c 7.9 He was on metformin 850mg BID Continue Insulin protocol with novolog and Nereydaus Will start on Metformin 500mg Xr daily on discharge, then increase on week 2 if able tolerates Diabetic education Will need to get outpatient diabetes eyes exam Continue monitor BS (6) Hyperlipidemia: Continue statin 40mg daily (7) Major depressive disorder without psychotic features: (8) GRIFFIN (generalized anxiety disorder): Continue home meds. Stable (9) DVT prophylaxis: SCDs On subq heparin subq Disposition Plan to discharge to rehab today No need for COVID 19 test if transferring to [facility] as per case management Total Time Total Time Spent Total Time Spent (In Minutes): 40mintues Total Time Includes: Examination of the Patient, Discharge Planning, Medication Reconciliation, Communication With Other Providers and Other Discharge Plan Discharge Items Patient Disposition: Transfer Inpatient Rehab Fac Reason For Visit: STROKE Discharge Diagnosis: (1) Cerebrovascular accident (CVA) of right basal ganglia: (2) Stroke-like symptoms: (3) Hypertensive urgency: (4) Hypokalemia (5) Type 2 diabetes mellitus: (6) Hyperlipidemia: (7) Major depressive disorder without psychotic features: (8) GRIFFIN (generalized anxiety disorder): Activity: Resume your previous activity Non-emergency contact: Primary Care Provider Call non-emergency contact if: you have any medication questions Follow-up/Referrals: Cory Carter MD [Primary Care Provider] - Diet: Carb Consistent or DM2 Addtl Attending Provider Instructions: Follow up with your primary care provider once discharge from rehab Follow up with [facility] neurology in 4 to 6 weeks Continue physical and occupational therapy Continue Aspirin 81 mg daily and Plavix 75 mg daily for 21-days, then after 21 days continue aspirin only Continue speech therapy (Continue minced and moist diet ) Continue monitor your blood pressure (Your physician will adjust your blood pressure medication) Continue monitor your blood sugar (Your physician will titrate the metformin on week 2 if you able to tolerate it) Follow up a healthy diabetic diet and limited concentrated sweet intake Check Hba1c in 3 months Fall precaution Aspiration precaution Monitor for any abnormal bleeding such as blood in your urine and stools since starting on aspirin and plavis If develops any abnormal bleeding, please seek medical attention Check BMP in 1 week to monitor your electrolytes Check LFT in 1to 2 weeks to monitor your liver enzymes since starting on statin Pending Studies at Discharge: No Stand-Alone Forms: Feedtrace, Smoking Cessation Skilled Items Patient informed of condition?: Yes DNR: No Discharge Level of Care: Acute rehab Communicable Disease: No Discharge Prognosis: Stable Lines: None Urinary Catheter: No Medications and DC Order Prescriptions: New clopidogrel 75 mg Tablet 75 mg PO QAM 30 Days Qty: 30 RF: 0 atorvastatin 40 mg Tablet 40 mg PO QAM Qty: 30 RF: 0 lisinopril 10 mg Tablet 10 mg PO QAM Qty: 30 RF: 0 aspirin 81 mg Tablet,Delayed Release (Dr/Ec) 81 mg PO QAM Qty: 30 RF: 0 metformin 500 mg tablet extended release 24 hr 500 mg PO DAILY Qty: 30 RF: 0 Continued fluoxetine 40 mg capsule 80 mg PO HS RF: 0 olanzapine 2.5 mg tablet 2.5 mg PO HS RF: 0 gabapentin 300 mg capsule 300 mg PO HS RF: 0 mirtazapine 45 mg tablet 45 mg PO HS RF: 0 aripiprazole 5 mg tablet 5 mg PO HS RF: 0 Discharge Orders: Discharge Order (Routine); Ordered 01/01/20 Ordered By: Heladio Robles/Other Patient Handouts: Diabetes: Inspecting Your Feet, Diabetes: Caring for Your Body, Dysarthria: Improving Speech Admission Data Admit Date/Time: 12/29/19 12:36 Attending Provider: Heladio Weir Admit Provider: Mike Kay Primary Care Provider: Cory Carter Other Providers: Mike Kay ; Simon Mckenzie ; [place] ; [facility] Other Interventions: Discharge Summary Assessment (RN) Last Done: 01/01/20 14:45
== END 2020-01-01 16:02 | DRG 65 ==
LOC: ED 10:47 → 1E 12:36 → SUATTDRO 12:36 → 1E 12:55 → 2S 12-30 19:02

== ENCOUNTER 2023-06-19 09:09 | Inpatient (IN) ==
--- OUTSIDE RECORDS SUMMARY | 2023-06-19 09:16 | External Medical Summary | Summary of Care ---
Author Name Unknown Organization [facility] Address [address] [place] [address] Phone [phone] Care Team Providers Care Radiology Aide Name Role Phone Rick Arboleda MD Primary Care Provider +1- [phone] Reason for Visit * Reason Comments eRx-Medication Refill Encounter Details Date Type Department Care Team Description 03/06/2023 Refill [facility] [address] [place] [address] Rick Arboleda MD [address] [place] [address] Allergies No known active allergiesdocumented as of this encounter (statuses as of 03/06/2023) Medications Medication Sig Dispensed Refills Start Date End Date Status FLUoxetine HCl 40 MG Capsule Take 2 Caps by mouth daily. 0 03/02/2017 Active Mirtazapine 45 MG Oral Tablet Take by mouth 45 mg at bedtime . 30 Tab 5 03/02/2017 Active OLANZapine 15 MG Tablet Take 1 Tab by mouth at bedtime. 0 03/02/2017 Active ARIPiprazole (ABILIFY) 5 MG Tablet Take 5 mg by mouth daily. 0 Active aspirin enteric coated 81 MG TBEC Take 81 mg by mouth daily. 0 Active OLANZapine (ZYPREXA) 5 MG Tablet Take 5 mg by mouth at bedtime. 0 Active ACCU-CHEK INGA PLUS STRP Test blood sugars 2 times daily E11.9 200 Strip 3 03/06/2020 Active Accu-Chek Softclix Lancets MISC Test blood sugars 2 times daily E11.9 200 Each 3 03/06/2020 Active Accu-Chek Guide Me w/Device Kit Test blood sugars 2 times daily. DX: E11.9 1 Kit 0 07/22/2020 Active Accu-Chek Guide In Vitro Strip (Glucose Blood) Test blood sugars 2 times daily. E11.9 200 Strip 3 07/22/2020 Active Accu-Chek FastClix Lancets Test blood sugars 2 times daily. E11.9 200 Each 3 07/22/2020 Active Accu-Chek Inga Plus w/Device Kit Test blood sugars 2 times daily DX:E11.9 1 Kit 0 05/26/2021 Active Lisinopril 40 MG Oral TabletIndications :HTN, goal below 140/90 TAKE 1 TABLET BY MOUTH ONCE DAILY 90 Tablet 3 06/18/2022 Active metFORMIN HCl ER 500 MG Oral Tablet Extended Release 24 Hour (Glucophage XR) TAKE 1 TABLET BY MOUTH ONCE DAILY 90 Tablet 0 02/06/2023 Active Atorvastatin Calcium 40 MG Oral Tablet (Lipitor) TAKE ONE TABLET BY MOUTH NIGHTLY AT BEDTIME 90 Tablet 0 03/06/2023 Active Atorvastatin Calcium 40 MG Oral Tablet (Lipitor) TAKE ONE TABLET BY MOUTH NIGHTLY AT BEDTIME 90 Tablet 3 04/04/2022 03/06/2023 Discontinued documented as of this encounter (statuses as of 03/06/2023) Active Problems Problem Noted Date H/O dysplastic nevus 07/22/2021 Overview: Low grade atypical nevus (L upper back) Hx of actinic keratosis 07/17/2021 Overview: Actinic keratoses (Efudex R lateral upper cheek 07/01) Homocystinuria 08/23/2020 History of CVA (cerebrovascular accident ) 02/21/2020 HTN, goal below 140/90 12/21/2017 Dyslipidemia 12/21/2017 Type 2 diabetes mellitus with hemoglobin A1c goal of less than 7.0% 03/30/2017 History of nephrolithiasis 03/30/2017 Hepatic steatosis 03/02/2017 Calculus of gallbladder without cholecys titis without obstruction 03/02/2017 Major depressive disorder, recurrent epi sode, moderate 01/31/2002 documented as of this encounter (statuses as of 03/06/2023) Resolved Problems Problem Noted Date Resolved Date AC APPEND W PERITONITIS 09/22/2005 03/02/20 17 Pruritic disorder 12/12/2002 03/02/2017 Urticaria 08/10/2000 03/02/2017 ADV EFF MED-BIOL SUB NOS 08/10/2000 017 documented as of this encounter (statuses as of 03/06/2023) Immunizations Name Administration Dates Next Due Seasonal Influenza, PF, 6 mo ns & Above, IM , (Flulaval) 05/26/2021 TDAP (age 10 and older)(Boostrix) 05/26/2021 Zoster Vaccine Recombinant (Shingrix) 12/23/2020 ,08/23/2020 02/20/2021 documented as of this encounter Social History Tobacco Use Types Packs/Day Years Used Date Smoking Tobacco: Never Smokeless Tobacco: Never Comments:Some passive smoke exposure as child from both parents Alcohol Use Standard Drinks/Week Comments No 0 (1 standard drink = 0.6 oz pur e alcohol) Food Insecurity Answer Date Recorded Within the past 12 months, y ou worried that your food would run out before you got money to buy more. Never true 04/22/2020 Within the past 12 months, t he food you bought just didn't last and you didn't have money to get more. Never true 04/22/2020 Sex Assigned at Date Recorded Not on file Job Start Date Occupation Industry Not on file Not on file Not on file documented as of this encounter Miscellaneous Notes * Telephone Encounter - Reji Bedoya RPh - 03/06/2023 8:10 PM EDT Signed Prescriptions: Disp Refills Atorvastatin Calcium 40 MG Oral Tablet (Li*90 Tab*0 Sig: TAKE ONE TABLET BY MOUTH NIGHTLY AT BEDTIMEAuthorizing Provider: RICK ARBOLEDA User: REJI BEDOYA * Telephone Encounter - Reji Bedoya [facility] - 03/06/2023 8:07 PM EDT Patient will be contacted in 02/05/23 encounter regarding needing OV and/or lab work. 1 refill approved. Thank you, Reji Bedoya, PharmD, CHET Clinical Pharmacist Centralized Clinical Pharmacy Services (CCPS) (formerly Telepharmacy) 03/06/23 8:08 PM [phone] documented in this encounter Plan of Treatment Upcoming Encounters Date Type Specialty Care Team Description 08/05/2023 Office Visit Dermatology Tarsha Ellsworth, HERBER [address] [place] [address] [place] [address] Health Maintenance Due Date Last Done Comments COVID-19 Vaccine (#1) 04/18/1956 Pneumococcal Vaccine: 65+ Years (1 - PCV) 10/18/1963 HIV Screening 1972 Albumin/Creatinine Ratio 10/18/1975 Cologuard 2002 Colonoscopy 2002 Colorectal Cancer Screening 2002 Fecal Occult Blood Test 2002 Sigmoidoscopy 2002 B-12 12/10/2017 12/10/2016, 09/23/2015 DIABETES-FOOT EXAM 11/22/2018 11/22/2017 Depression Screening, Annual for Pts 12 and Over 04/22/2021 04/22/2020 DIABETES-EYE EXAM 08/24/2021 08/24/2020, , 09/13/2008 HbA1c 08/05/2022 02/02/2022, 04/0 08/2020, 08/25/2018, Additional history exists GFR 02/02/2023 02/02/2022, 040 08/2020, 01/19/2020, Additional history exists Influenza Vaccine (FLU shot) (#1) 2023 05/26/2021 Lipid Panel 02/02/2027 02/02/2022, 04/0 08/2020, 01/24/2018, Additional history exists DTaP,Tdap,and Td Vaccines (2 - Td or Tdap) 05/26/2031 05/26/2021 Zoster Vaccines Completed 12/23/2020, 08/23/2020 GARDASIL-HPV IMMUNIZATION SERIES Aged Out No longer eligible based on patient's age to complete this topic Hepatitis B Aged Out No longer eligi ble based on patient's age to complete this topic MENINGOCOCCAL (MENACTRA/MENVEO) Aged Out No longer eligible based on patient's age to complete this topic documented as of this encounter Medical Devices Not on filedocumented as of this encounter Advance Directives Latest Code Status on File Code Status Date Activated Date Inactivated Comments Full Code 03/05/2017 8:39 AM 03/05/2017 4:42 PM This order reflects the patients wishes and were consensually agreed upon. Care Teams Radiology Aide Relationship Specialty Start Date End Date Rick Arboleda MD [address], [place] [id number] PCP - General 12/29/01 documented as of this encounter
--- OUTSIDE RECORDS SUMMARY | 2023-06-19 09:16 | External Medical Summary | Summary of Care ---
Author Name Unknown Organization [facility] Address [address] [place] [address] Phone [phone] Care Team Providers Care Logistics Team Leader Name Role Phone Rick Arboleda MD Primary Care Provider +1- [phone] Reason for Visit * Reason Comments eRx-Medication Refill Encounter Details Date Type Department Care Team (Late st Contact Info) Description 05/08/2023 Refill [facility] [address] [place] [address] Rick Arboleda MD [address] [place] [address] Allergies No known active allergiesdocumented as of this encounter (statuses as of 05/10/2023) Medications Medication Sig Dispensed Refills Start Date [...] ONCE DAILY 90 Tablet 3 06/18/2022 Active Atorvastatin Calcium 40 MG Oral Tablet (Lipitor) TAKE ONE TABLET BY MOUTH NIGHTLY AT BEDTIME 90 Tablet 0 03/06/2023 Active metFORMIN HCl ER 500 MG Oral Tablet Extended Release 24 Hour (Glucophage XR) TAKE 1 TABLET BY MOUTH ONCE DAILY 90 Tablet 3 05/10/2023 Active metFORMIN HCl ER 500 MG Oral Tablet Extended Release 24 Hour (Glucophage XR) TAKE 1 TABLET BY MOUTH ONCE DAILY 90 Tablet 0 02/06/2023 05/10/2023 Discontinued documented as of this encounter (statuses as of 05/10/2023) Active Problems Problem Noted Date Diagnosed Date H/O dysplastic nevus 07/22/2021 Overview: Low grade atypical nevus (L upper back) Hx of actinic keratosis 07/17/2021 Overview: Actinic keratoses (Efudex R lateral upper cheek 07/01) Homocystinuria 08/23/2020 History of CVA (cerebrovascular accident) 2019 HTN, goal below 140/90 12/21/2017 Dyslipidemia 12/21/2017 Type 2 diabetes mellitus wit h hemoglobin A1c goal of less than 7.0% 03/30/2017 History of nephrolithiasis 03/30/2017 Hepatic steatosis 03/02/2017 Calculus of gallbladder with out cholecystitis without obstruction 03/02/2017 Major depressive disorder, recurrent episode, mo derate 01/31/2002 documented as of this encounter (statuses as of 05/10/2023) Resolved Problems Problem Noted Date Diagnosed Date Resolved Date AC APPEND W PERITONITIS 09/22/200502/10 Pruritic disorder 12/12/2002 03/02/2017 Urticaria 08/10/2000 03/02/2017 ADV EFF MED-BIOL SUB NOS 08/10/2000 documented as of this encounter (statuses as of 05/10/2023) Immunizations Name Administration Dates Next Due SEASONAL INFLUENZA, PF, 6 M & Above, IM , (FLULAVAL or FLUZONE) 05/26/2021 TDAP (age 10 and older)(Boostrix) 05/26/2021 Zoster Vaccine Recombinant (Shingrix) 12/23/2020 ,08/23/2020 02/20/2021 documented as of this encounter Social History Tobacco Use Types Packs/Day Years Used Date Smoking Tobacco: Never Smokeless Tobacco: Never Comments:Some passive smoke exposure as child from both parents Alcohol Use Standard Drinks/Week Comments No 0 (1 standard drink = 0.6 oz pur e alcohol) Sex and Gender Information Value Date Recorded Sex Assigned at Not on file Gender Identity Not on file Sexual Orientation Not on file Job Start Date Occupation Industry Not on file Not on file Not on file documented as of this encounter Miscellaneous Notes * Telephone Encounter - Rick Arboleda MD - 05/10/2023 3:42 PM EDTSigned Prescriptions: Disp Refills metFORMIN HCl ER 500 MG Oral Tablet Extend*90 Tab*3 Sig: TAKE 1 TABLET BY MOUTH ONCE DAILYAuthorizing Provider: RICK ARBOLEDA * Telephone Encounter - Interface, [facility] - 05/10/2023 6:15 AM EDT Pending Prescriptions: Disp Refills metFORMIN HCl ER 500 MG Oral Tablet Extend*90 Tab*0 Sig: TAKE 1 TABLET BY MOUTH ONCE DAILY * Telephone Encounter - Bob Maurice RPh - 05/09/2023 10:31 AM EDTPending Prescriptions: Disp Refills metFORMIN HCl ER 500 MG Oral Tablet Extend*90 Tab*0 Sig: TAKE 1 TABLET BY MOUTH ONCE DAILY * Telephone Encounter - Bob Maurice RPh - 05/09/2023 10:29 AM EDT Unable to authorize medication refills for pended medication(s) at this time. Part of the protocol criteria used for refill authorization was not satisfied. Patient needs updated labs per refill protocol. Please approve if appropriate. Thanks, Yaya Maurice, PharmD Clinical Pharmacist Centralized Clinical Pharmacy Services (CCPS) (Formerly Telepharmacy) [phone] 05/09/2023 10:30 AM documented in this encounter Plan of Treatment Upcoming Encounters Date Type Department Care Team (Late st Contact Info) Description 08/05/2023 3:40 PM EST [facility] [address] [place] [address] Tarsha Ellsworth PA-C [address] [place] [address] [place] [address] Health Maintenance Due Date Last Done Comments COVID-19 Vaccine (#1) 04/18/1956 Pneumococcal Vaccine: 65+ Years (1 - PCV) 10/18/1963 HIV Screening 1972 Albumin/Creatinine Ratio 10/18/1975 Cologuard 2002 Colonoscopy 2002 Colorectal Cancer Screening 2002 Fecal Occult Blood Test 2002 Sigmoidoscopy 2002 Hepatitis B (1 of 3 - Risk 3-dose series) 2017 B-12 12/10/2017 12/10/2016, 09/23/2015 Diabetic Foot Exam 11/22/2018 11/22/2017 Depression Screening 04/22/2021 04/22/2020 Diabetic Eye Exam 08/24/2021 08/24/2020, , 09/13/2008 HbA1c 08/05/2022 02/02/2022, 04/0 08/2020, 08/25/2018, Additional history exists GFR 02/02/2023 02/02/2022, 04/0 08/2020, 01/19/2020, Additional history exists Influenza Vaccine (FLU shot) (#1) 2023 05/26/2021 Lipid Panel 02/02/2027 02/02/2022, 04/0 08/2020, 01/24/2018, Additional history exists DTaP,Tdap,and Td Vaccines (2 - Td or Tdap) 05/26/2031 05/26/2021 Hepatitis C Screening Completed 03/09/2006 Zoster Vaccines Completed 12/23/2020, 08/23/2020 GARDASIL-HPV IMMUNIZATION [...] and were consensually agreed upon. Care Teams Logistics Team Leader Relationship Specialty Start Date End Date Rick Arboleda MD [address] [facility] [place] [address] PCP - General 12/29/01 documented as of this encounter
--- OUTSIDE RECORDS SUMMARY | 2023-06-19 09:16 | External Medical Summary | Summary of Care ---
Author Name Unknown Organization [facility] Address [address] [place] [address] Phone [phone] Care Team Providers Care Financial Officer Name Role Phone Rick Arboleda MD Primary Care Provider +1- [phone] Reason for Visit * Reason Comments eRx-Medication Refill Encounter Details Date Type Department Care Team (Late st Contact Info) Description 06/07/2023 Refill [facility] [address] [place] [facility] [place] [address] Rick Arboleda MD [address] [place] [address] HTN, goal below 140/90 Allergies No known active allergiesdocumented as of this encounter (statuses as of 06/15/2023) Medications Medication Sig Dispensed Refills Start Date [...] daily DX:E11.9 1 Kit 0 05/26/2021 Active Atorvastatin Calcium 40 MG Oral Tablet (Lipitor) TAKE ONE TABLET BY MOUTH NIGHTLY AT BEDTIME 90 Tablet 0 03/06/2023 Active metFORMIN HCl ER 500 MG Oral Tablet Extended Release 24 Hour (Glucophage XR) TAKE 1 TABLET BY MOUTH ONCE DAILY 90 Tablet 3 05/10/2023 Active Lisinopril 40 MG Oral TabletIndications :HTN, goal below 140/90 TAKE 1 TABLET BY MOUTH ONCE DAILY 90 Tablet 0 06/08/2023 Active Lisinopril 40 MG Oral TabletIndications :HTN, goal below 140/90 TAKE 1 TABLET BY MOUTH ONCE DAILY 90 Tablet 3 06/18/2022 06/08/2023 Discontinued documented as of this encounter (statuses as of 06/15/2023) Active Problems Problem Noted Date Diagnosed Date [...] as of this encounter (statuses as of 06/15/2023) Resolved Problems Problem Noted Date Diagnosed Date Resolved Date AC APPEND W PERITONITIS 09/22/200502/10 Pruritic disorder 12/12/2002 03/02/2017 Urticaria 08/10/2000 03/02/2017 ADV EFF MED-BIOL SUB NOS 08/10/2000 documented as of this encounter (statuses as of 06/15/2023) Immunizations Name Administration Dates Next Due SEASONAL [...] drink = 0.6 oz pur e alcohol) PHQ-2 Answer Date Recorded PHQ-2 Score 0 04/22/2020 Hunger Vital Sign Answer Date Recorded Worried About Running Out of Food in the Last Ye ar Never true 04/22/2020 Ran Out of Food in the Last Year Never true 04/22/2020 Sex and Gender Information Value Date Recorded Sex Assigned at Not on file Gender Identity Not on file Sexual Orientation Not on file Job Start Date Occupation Industry Not on file Not on file Not on file documented as of this encounter Miscellaneous Notes * Telephone Encounter - Tarsha Rodriguez OSA - 06/15/2023 8:34 AM EST Called patient. No answer and no VM picked up the phone just keeps ringing. Letter sent. 06/15/2023 * Telephone Encounter - Tarsha Rodriguez OSA - 06/09/2023 2:19 PM EST Called to schedule OV. Patient did not answer and unable to leave a voicemail as it states "leave aremote access code". 06/09/2023 * Telephone Encounter - Rcik Arboleda MD - 06/08/2023 12:54 PM ESTSigned Prescriptions: Disp Refills Lisinopril 40 MG Oral Tablet 90 Tab*0 Sig: TAKE 1 TABLET BY MOUTH ONCE DAILY Authorizing Provider: RICK ARBOLEDA * Telephone Encounter - Rick Arboleda MD - 06/08/2023 12:54 PM EST Please make sure that follow up ov arranged * Telephone Encounter - Jaquelin Bell RP - 06/07/2023 5:55 PM ESTPending Prescriptions: Disp Refills Lisinopril 40 MG Oral Tablet 30 Tab*0 Sig: TAKE 1 TABLET BY MOUTH ONCE DAILY * Telephone Encounter - Jaquelin Bell RP - 06/07/2023 5:53 PM EST Unable to authorize medication refills for pended medication(s) at this time. Part of the protocol criteria used for refill authorization was not satisfied. Patient needs OV within last year. Please approve if appropriate. Last OV: 05/26/2021 (in office), Visit date not found (telemedicine) Thank you, Jaquelin Bell [facility] Clinical Pharmacist Centralized Clinical Pharmacy Services (CCPS) (formerly Telepharmacy) 06/07/23 5:53 PM [phone] * Telephone Encounter - Jaquelin Bell RPh - 06/07/2023 5:52 PM EST Did you pend patient's preferred pharmacy and medication before forwarding?yes Pharmacy: [id number] [place] Pending Prescriptions: Disp Refills Lisinopril 40 MG Oral Tablet [Pharmacy Me*30 Tab*0 Sig: TAKE 1 TABLET BY MOUTH ONCE DAILY Last Visit: 05/26/2021 (in office), Visit date not found (telemedicine) Next Visit: Visit date not found If no future appointments scheduled, and last appointment is greater than a year ago, please schedule patient for a follow-up appointment Last date the medication was ordered: 06/18/2022 Is this request for a controlled substance?No Urine Drug Screen:No results found for this or any previous visit. Patient Phone Numbers Labs: Lab Results Component Value Date/Time CREAT 1.12 02/02/2022 12:00 AM CREAT 1.2 01/19/2020 11:16 AM POTASSIUM 4.4 02/02/2022 12:00 AM POTASSIUM 4.1 01/19/2020 11:16 AM TSH 2.51 02/02/2022 12:00 AM TSH 2.33 09/23/2015 12:30 PM LDLCALC 62 02/02/2022 12:00 AM LDLCALC 110 12/10/2016 12:26 PM LDLDIRECT 166 (H) 05/02/2009 11:12 AM ALT 26 10/11/2020 12:00 AM ALT 34 01/19/2020 11:16 AM HGBA1C 6.2 (A) 02/02/2022 12:00 AM HGBA1C 6.7 (H) 03/02/2017 02:19 PM documented in this encounter Plan of Treatment Upcoming Encounters Date Type Department Care Team (Late st Contact Info) Description 08/05/2023 3:40 PM EST [place] [address] [address] [facility] [place] [place] [address] Tarsha Ellsworth PA-C [address] [place] [address] [place] [address] Health Maintenance Due Date Last Done Comments [...] Not on filedocumented as of this encounter Visit Diagnoses Diagnosis HTN, goal below 140/90 Unspecified essential hypertension documented in this encounter Advance Directives Latest Code Status on File Code Status Date Activated Date Inactivated Comments Full Code 03/05/2017 8:39 AM 03/05/2017 4:42 PM This order reflects the patients wishes and were consensually agreed upon. Care Teams Financial Officer Relationship Specialty Start Date End Date Rick Arboleda MD [address] [place] [address] PCP - General 12/29/01 documented as of this encounter
--- OUTSIDE RECORDS SUMMARY | 2023-06-19 09:16 | External Medical Summary | Summary of Care ---
Author Name Unknown Organization [facility] Address [address] [place] [address] Phone [phone] Care Team Providers Care Twisthand Name Role Phone Rick Arboleda MD Primary Care Provider +1- [phone] Reason for Visit * Reason Comments eRx-Medication Refill Encounter Details Date Type Department Care Team (Late st Contact Info) Description 06/07/2023 Refill [facility] [address] [place] [facility] [place] [address] Rick Arboleda MD [address] [place] [address] HTN, goal below 140/90 Allergies No known active allergiesdocumented as of this encounter (statuses as of 06/09/2023) Medications Medication Sig Dispensed Refills Start Date [...] as of this encounter (statuses as of 06/09/2023) Active Problems Problem Noted Date Diagnosed Date [...] as of this encounter (statuses as of 06/09/2023) Resolved Problems Problem Noted Date Diagnosed Date Resolved Date AC APPEND W PERITONITIS 09/22/200502/10 Pruritic disorder 12/12/2002 03/02/2017 Urticaria 08/10/2000 03/02/2017 ADV EFF MED-BIOL SUB NOS 08/10/2000 documented as of this encounter (statuses as of 06/09/2023) Immunizations Name Administration Dates Next Due SEASONAL [...] access code". 06/09/2023 * Telephone Encounter - Rick Arboleda MD - 06/08/2023 12:54 PM ESTSigned Prescriptions: Disp Refills Lisinopril 40 MG Oral Tablet 90 Tab*0 Sig: TAKE 1 TABLET BY MOUTH ONCE DAILY Authorizing Provider: RICK ARBOLEDA * Telephone Encounter - Rick Arboleda MD - 06/08/2023 12:54 PM EST Please make sure that follow up ov arranged * Telephone Encounter - Jaquelin Bell [facility] - 06/07/2023 5:55 PM ESTPending Prescriptions: Disp Refills Lisinopril 40 MG Oral Tablet 30 Tab*0 Sig: TAKE 1 TABLET BY MOUTH ONCE DAILY * Telephone Encounter - Jaquelin Bell [facility] - 06/07/2023 5:53 PM EST Unable to authorize medication refills for pended medication(s) at this time. Part of the protocol criteria used for refill authorization was not satisfied. Patient needs OV within last year. Please approve if appropriate. Last OV: 05/26/2021 (in office), Visit date not found (telemedicine) Thank you, Jaquelin Bell [facility] Clinical Pharmacist Centralized Clinical Pharmacy Services (CCPS) (formerly Telepharmacy) 06/07/23 5:53 PM [phone] * Telephone Encounter - Jaquelin Bell RPh - 06/07/2023 5:52 PM EST Did you pend patient's preferred pharmacy and medication before forwarding?yes Pharmacy: [id number] [address] Pending Prescriptions: Disp Refills Lisinopril 40 MG [...] Description 08/05/2023 3:40 PM EST Office Visit [facility] [place] [address] Tarsha Ellsworth PA-C [address] [place] [address] [place] [address] Health Maintenance Due Date Last Done Comments [...] Date Activated Date Inactivated Comments Full Code 03/05/2017:39 AM 03/05/2017 4:42 PM This order reflects the patients wishes and were consensually agreed upon. Care Teams Twisthand Relationship Specialty Start Date End Date Rick Arboleda MD [address] [place] [address] PCP - General 12/29/01 documented as of this encounter
[2023-06-19] MEDS ORDERED: fentaNYL citrate PF 100 MCG/2 ML VIAL IV STA (10:04)
[2023-06-19 10:08] LABS: Hematocrit (blood only) 39.3 % (42.0-52.0); Hemoglobin 13.6 g/dl (14.0-18.0); Mean Corpuscular Hemoglobin 29.5 pg (25.0-34.0); Mean Corpuscular Hgb Conc 34.6 g/dL (32.0-36.0); Mean Corpuscular Volume 85.2 fL (80.0-100.0); Mean Platelet Volume 9.7 fL (9.4-12.4); Platelet Count 335 K/uL (130-400); RDW Coefficient of Variation 13.2 % (11.5-14.5); RDW Standard Deviation 41.2 fL (36.4-46.3); Red Blood Count 4.61 M/uL (4.70-6.10); White Blood Count 15.35 K/ul (4.8-10.8)
[2023-06-19] MEDS: SODIUM CHLORIDE 0.9% 1,000 ML IV SCH ×2 (10:17→11:27)
[2023-06-19 10:26] LABS: Albumin Globulin Ratio 1.4 (0.9-2); Albumin Level 4.3 gm/dl (3.4-5.0); BUN Creatinine Ratio 18.4 (10-20); Bilirubin,Total 0.7 mg/dl (0.2-1.0); Calcium 9.2 mg/dl (8.6-10.3); Creatinine Clr Calc Pharmacy 68.8 ml/min; Est GFR (African American) 77.8 ml/min; Est GFR (Non-African American) 67.1 ml/min; Globulin 3.1 gm/dl (2.5-4.0); Potassium 4.1 mmol/L (3.5-5.1); Total Protein 7.4 gm/dl (6.0-8.3)
--- NOTE | 2023-06-19 10:28 | Emergency Department Note ---
Impression & Plan Fall, Closed fracture of left hip, Tachycardia, Hypertensive urgency ED Provider Note Provider: Joshua Lopez MD DATE OF SERVICE: 06/19/2023 CHIEF COMPLAINT: Fall, left hip pain HISTORY OF PRESENT ILLNESS: Patient is a 67-year-old gentleman history of CVA, hypertension, diabetes, and anxiety reportedly on aspirin presenting here today after a fall last night. States he was sitting and went to get up and tripped on his right foot on a stack of books and fell onto his left hip with his leg going under him. Denies striking his head or loss of consciousness. States immediate pain has been able to stand. Crawled to the couch and laid there for the night. Denies injury to his arms, head, neck, chest, or right leg. Pain with the left hip unable to bear weight and pain with moving. Denies numbness or tingling extremities. Denies alcohol use to me. Did not take any of his morning medications or anything to eat since last night. Was nauseous and round received some Zofran. No pain medicine at this morning. Denies chest pain but EKG prior to arrival question tachycardia and may be some slight ST depression by prehospital report. PAST MEDICAL HISTORY: As noted above MEDICATIONS: Reviewed home medications SOCIAL HISTORY: Denies alcohol use PHYSICAL EXAM: GENERAL: alert and oriented in no acute distress on stretcher Head: normocephalic and atraumatic EYES: No injection, discharge or icterus. NECK: Trachea midline. Supple ENT: Mucous membranes pink and moist. Poor dentition. LUNGS: Airway patent. No retractions. Breath sounds clear with good air entry bilaterally. HEART: Regular rate and rhythm. No chest wall tenderness ABDOMEN: Soft and non-tender, without guarding or rebound. Stable BACK: No midline tenderness, No bilateral flank tenderness. SKIN: Acyanotic, warm, dry, without rashes EXTREMITIES: Without swelling, tenderness or deformity with some pain with range of motion of the left hip and slight left lateral trochanter pain. NEUROLOGICAL: No focal deficits. No aphasia. No facial droop or slurred speech. Normal strength and tone in the extremities except for some limitations due to pain around the left hip. Sensation to gross touch normal EK bpm sinus tachycardia. No PVC. No acute ST segment elevation or depression at this time with a QTc of 458. CONTINUOUS CARDIAC MONITORING: was ordered and showed a heart rate of 110s-120s bpm in sinus tachycardia GCS 15 Patient's laboratory studies and imaging reviewed. Differential includes Fracture, dislocation, contusion, intra-abdominal, pneumothorax, intrathoracic, intracranial, neurologic, compartment syndrome, rhabdomyolysis, as well as other pathologies. IMPRESSION/MEDICAL DECISION MAKING: Patient awake alert. Denies headache, dizziness, numbness or tingling, or striking his head. Is notably somewhat tachycardic upon arrival. Has not been ambulatory since fall last night. Evidence of hip fracture on x-ray of the left hip. No numbness or tingling. Denies other pelvic or abdominal complaints. Denies chest pain or shortness of breath. Again denies any neck or head complaints. Chest x-ray and basic labs obtained as well as troponin. Given some fentanyl for pain as well as some IV fluids here. Will need to have definite care of left hip fracture. Is noted again to be hypertensive and tachycardic upon arrival but denies any alcohol use. Denies drug use. Question anxiety and stress versus some component of dehydration. TSH was sent for completeness. CK sent to exclude rhabdomyolysis. No evidence clinically of compartment syndrome. Blood work without any significant anemia. Likely reactive mild leukocytosis of 15 but denies other infectious symptomatologies. Denies URI symptoms. Bicarb 19 and anion gap 14 but no other significant electrolyte abnormalities. CK2 48 I doubt rhabdomyolysis. Troponin not elevated. Negative alcohol and COVID testing. Chest x-ray reassuring and normal per radiology with evidence of left femoral neck fracture on the left hip. Given the persistent tachycardia we will complete trauma CTs of the head, cervical spine, chest abdomen pelvis as well to exclude any occult injuries or any occult bleeding although again his hemoglobin is reassuring and his blood pressure is high if anything. I do not believe this represents flutter at this time. Did receive some additional morphine for pain. Urinalysis without findings concerning for infection at this time. CT reports per radiology of the head, cervical spine, CT angiogram of the chest, CT abdomen pelvis without significant traumatic injury beyond the left femoral neck fracture. No evidence of PE. This is reassuring. Updated patient and family regarding the evidence of hip fracture. Mother is to have surgery with Dr. Allan on Wednesday and will discuss with orthopedics on- call Dr. Yang if he may be available. Patient's blood pressure still elevated given a small dose of labetalol here. Heart rate did improve some to the low 100s. Prior hospitalization in 2019 notes reviewed and appear to have similar tachycardia and hypertension then. Denies any history to the patient's knowledge of arrhythmia. Again not in any distress. Again denies any alcohol issues to explain withdrawal and does have a history of hypertensive urgency on prior presentations here. Plan for possible all repair of the hip tomorrow if medically cleared. Discussed with the hospitalist team. Patient and family updated bedside. DIAGNOSIS: Fall, left hip fracture, tachycardia, hypertension urgency DISPOSITION: Hospitalist will evaluate Patient was agreeable with this plan. Past Med/Surg History Medical History Cholelithiasis Hepatic steatosis History of nephrolithiasis Homocystinuria HTN (hypertension) Cerebrovascular accident (CVA) of right basal ganglia GRIFFIN (generalized anxiety disorder) Major depressive disorder without psychotic features Hyperlipidemia Type 2 diabetes mellitus Surgical History History of lithotripsy S/P appendectomy Family History Mother Depression Uncle Stroke Social History Smoking Status: Never smoker Tobacco Type: Cigarettes Hx Alcohol Use: No Hx Substance Use: No Preferred Language: Bengali Communication Ability: Effective Beliefs That Will Affect Care: None Current Living Situation: Alone Feels Safe at Home: Yes Assistive Devices: None Allergies Allergies Allergy/AdvReac Type Severity Reaction Status Date / Time No Known Allergies Allergy Unknown Verified 02/26/17 21:05 Home Meds Home Medications Medication Instructions Recorded Confirmed aripiprazole 5 mg tablet 5 mg PO HS 12/29/19 06/19/23 fluoxetine 40 mg capsule 80 mg PO HS 12/29/19 06/19/23 mirtazapine 45 mg tablet 45 mg PO HS 12/29/19 06/19/23 aspirin 81 mg tablet,delayed 81 mg PO HS 06/19/23 06/19/23 release atorvastatin 40 mg tablet 40 mg PO HS 06/19/23 06/19/23 lamotrigine 100 mg tablet 100 mg PO HS 06/19/23 06/19/23 liothyronine 25 mcg tablet 25 mcg PO HS 06/19/23 06/19/23 lisinopril 40 mg tablet 40 mg PO HS 06/19/23 06/19/23 metformin 500 mg tablet,extended 500 mg PO HS 06/19/23 06/19/23 release 24 hr Results & Data (ED) Vital Signs Vital Signs - 24 hr 06/19/23 09:27 06/19/23 09:28 06/19/23 09:30 Temperature 36.9 C Temperature Source Oral Pulse Rate 124 H 123 H 122 H Pulse Rate from SpO2 Sensor Pulse Rhythm Respiratory Rate 18 20 Blood Pressure 209/124 H 202/114 H Blood Pressure Mean 152 143 Pulse Oximetry 96 Oxygen Delivery Method Room Air Sepsis Recent Fever Within 48 Hours No Sepsis New/Unexplained Change in Mental Status No Sepsis Action Taken by Nursing No Action Required 06/19/23 09:44 06/19/23 10:00 06/19/23 10:30 Temperature Temperature Source Pulse Rate 122 H 132 H 121 H Pulse Rate from SpO2 Sensor 121 H Pulse Rhythm Regular Respiratory Rate 20 23 25 H Blood Pressure 200/108 H Blood Pressure Mean 138 Pulse Oximetry 96 92 Oxygen Delivery Method Room Air Sepsis Recent Fever Within 48 Hours Sepsis New/Unexplained Change in Mental Status Sepsis Action Taken by Nursing 06/19/23 11:00 06/19/23 11:35 06/19/23 12:00 Temperature Temperature Source Pulse Rate 118 H 120 H 115 H Pulse Rate from SpO2 Sensor 118 H 114 H Pulse Rhythm Respiratory Rate 26 H 25 H 30 H Blood Pressure 192/114 H 188/110 H Blood Pressure Mean 140 136 Pulse Oximetry 93 94 91 Oxygen Delivery Method Sepsis Recent Fever Within 48 Hours Sepsis New/Unexplained Change in Mental Status Sepsis Action Taken by Nursing 06/19/23 12:33 06/19/23 13:00 06/19/23 13:03 Temperature Temperature Source Pulse Rate Pulse Rate from SpO2 Sensor 116 H 115 H 118 H Pulse Rhythm Respiratory Rate Blood Pressure 229/114 H 187/106 H 184/112 H Blood Pressure Mean 152 133 136 Pulse Oximetry 91 90 93 Oxygen Delivery Method Sepsis Recent Fever Within 48 Hours Sepsis New/Unexplained Change in Mental Status Sepsis Action Taken by Nursing 06/19/23 13:08 06/19/23 13:30 06/19/23 13:34 Temperature Temperature Source Pulse Rate 122 H 105 H 107 H Pulse Rate from SpO2 Sensor 105 H Pulse Rhythm Respiratory Rate 25 H Blood Pressure 184/112 H 175/104 H Blood Pressure Mean 127 Pulse Oximetry 90 Oxygen Delivery Method Sepsis Recent Fever Within 48 Hours Sepsis New/Unexplained Change in Mental Status Sepsis Action Taken by Nursing 06/19/23 13:42 Temperature Temperature Source Pulse Rate 107 H Pulse Rate from SpO2 Sensor Pulse Rhythm Respiratory Rate Blood Pressure 175/104 H Blood Pressure Mean Pulse Oximetry Oxygen Delivery Method Sepsis Recent Fever Within 48 Hours Sepsis New/Unexplained Change in Mental Status Sepsis Action Taken by Nursing Laboratory Data 06/19/23 09:30 06/19/23 09:30 Lab Results 06/19/23 06/19/23 06/19/23 Range/Units 09:30 09:50 10:35 WBC 15.35 H (4.8-10.8) K/ul RBC 4.61 L (4.70-6.10) M/uL Hgb 13.6 L (14.0-18.0) g/dl Hct 39.3 L (42.0-52.0) % MCV 85.2 (80.0-100.0) fL MCH 29.5 (25.0-34.0) pg MCHC 34.6 (32.0-36.0) g/dL RDW Std Deviation 41.2 (36.4-46.3) fL RDW Coeff of [place] 13.2 (11.5-14.5) % Plt Count 335 (130-400) K/uL MPV 9.7 (9.4-12.4) fL Immature Gran % (Auto) 0.3 % Neut % (Auto) 90.7 % Lymph % (Auto) 5.0 % [place] % (Auto) 3.8 % Eos % (Auto) 0.0 % Baso % (Auto) 0.2 % Neut # (Auto) 13.92 H (1.40-6.50) K/uL Lymph # (Auto) 0.76 L (1.20-3.40) K/uL [place] # (Auto) 0.59 (0.11-0.59) K/uL Eos # (Auto) 0.00 (0.00-0.50) K/uL Baso # (Auto) 0.03 (0.00-0.20) K/uL Immature Gran # (Auto) 0.05 (0.01-0.20) K/uL RBC Morphology Unremarkable PT Cancelled INR Cancelled Sodium 140 (136-145) mmol/L Potassium 4.1 (3.5-5.1) mmol/L Chloride 107 (98-107) mmol/L Carbon Dioxide 19 L (21-32) mmol/L Anion Gap 14 H (3-11) BUN 21 (6-23) mg/dl Creatinine 1.14 (0.6-1.4) mg/dl Est Cr Clr Drug Dosing 68.8 ml/min Est GFR ( Amer) 77.8 ml/min Est GFR (Non-Af Amer) 67.1 ml/min BUN/Creatinine Ratio 18.4 (10-20) Glucose 215 H (70-99(Fasting)) mg/dl Calcium 9.2 (8.6-10.3) mg/dl Total Bilirubin 0.7 (0.2-1.0) mg/dl AST 23 (13-39) U/L ALT 20 (7-52) U/L Alkaline Phosphatase 75 (34-104) U/L Total Creatine Kinase 248 H (30-223) U/L Troponin I High Sens 10.4 (0-20) pg/ml Total Protein 7.4 (6.0-8.3) gm/dl Albumin 4.3 (3.4-5.0) gm/dl Globulin 3.1 (2.5-4.0) gm/dl Albumin/Globulin Ratio 1.4 (0.9-2) TSH 1.461 (0.300-4.500) uIu/ml Urine Color Urine Appearance (Clear) Urine pH (4.5-7.5) Ur Specific Ary (1.000-1.030) Urine Protein (Negative) Urine Glucose (UA) (Negative) Urine Ketones (Negative) Urine Blood (Negative) Urine Nitrite (Negative) Urine Bilirubin (Negative) Urine Urobilinogen (Negative) Ur Leukocyte Esterase (Negative) Urine WBC (Auto) (0-5) /hpf Urine RBC (Auto) (0-4) /hpf U Hyaline Cast (Auto) (0-5) /lpf U Epithel Cells (Auto) (0-5) /lpf Urine Bacteria (Auto) (Negative) Ethyl Alcohol mg/dL < 10.0 (<10.0) mg/dl SARS-CoV-2, RNA, NAAT NEGATIVE (NEGATIVE) 06/19/23 06/19/23 Range/Units 10:43 11:35 WBC (4.8-10.8) K/ul RBC (4.70-6.10) M/uL Hgb (14.0-18.0) g/dl Hct (42.0-52.0) % MCV (80.0-100.0) fL MCH (25.0-34.0) pg MCHC (32.0-36.0) g/dL RDW Std Deviation (36.4-46.3) fL RDW Coeff of [place] (11.5-14.5) % Plt Count (130-400) K/uL MPV (9.4-12.4) fL Immature Gran % (Auto) % Neut % (Auto) % Lymph % (Auto) % [place] % (Auto) % Eos % (Auto) % Baso % (Auto) % Neut # (Auto) (1.40-6.50) K/uL Lymph # (Auto) (1.20-3.40) K/uL [place] # (Auto) (0.11-0.59) K/uL Eos # (Auto) (0.00-0.50) K/uL Baso # (Auto) (0.00-0.20) K/uL Immature Gran # (Auto) (0.01-0.20) K/uL RBC Morphology PT 11.4 INR 1.0 Sodium (136-145) mmol/L Potassium (3.5-5.1) mmol/L Chloride (98-107) mmol/L Carbon Dioxide (21-32) mmol/L Anion Gap (3-11) BUN (6-23) mg/dl Creatinine (0.6-1.4) mg/dl Est Cr Clr Drug Dosing ml/min Est GFR ( Amer) ml/min Est GFR (Non-Af Amer) ml/min BUN/Creatinine Ratio (10-20) Glucose (70-99(Fasting)) mg/dl Calcium (8.6-10.3) mg/dl Total Bilirubin (0.2-1.0) mg/dl AST (13-39) U/L ALT (7-52) U/L Alkaline Phosphatase (34-104) U/L Total Creatine Kinase (30-223) U/L Troponin I High Sens (0-20) pg/ml Total Protein (6.0-8.3) gm/dl Albumin (3.4-5.0) gm/dl Globulin (2.5-4.0) gm/dl Albumin/Globulin Ratio (0.9-2) TSH (0.300-4.500) uIu/ml Urine Color Yellow Urine Appearance Clear (Clear) Urine pH 7.0 (4.5-7.5) Ur Specific Ary 1.021 (1.000-1.030) Urine Protein Trace H (Negative) Urine Glucose (UA) 2+ H (Negative) Urine Ketones 1+ H (Negative) Urine Blood 1+ H (Negative) Urine Nitrite Negative (Negative) Urine Bilirubin Negative (Negative) Urine Urobilinogen Negative (Negative) Ur Leukocyte Esterase Negative (Negative) Urine WBC (Auto) 1-5 (0-5) /hpf Urine RBC (Auto) 0-4 (0-4) /hpf U Hyaline Cast (Auto) 0 (0-5) /lpf U Epithel Cells (Auto) 5-10 H (0-5) /lpf Urine Bacteria (Auto) Negative (Negative) Ethyl Alcohol mg/dL (<10.0) mg/dl SARS-CoV-2, RNA, NAAT (NEGATIVE) Administered Medications Discontinued Medications Fentanyl Citrate (Fentanyl Citrate Pf 100 Mcg/2 Ml Vial) 50 mcg IV NOW STA Stop: 06/19/23 10:05 Last Admin: 06/19/23 10:17 Dose: 50 mcg Documented By: BEBETO Sodium Chloride (Nss) 1,000 mls @ 999 mls/hr IV .Q1H1M DONNA Stop: 06/19/23 12:15 Last Infusion: 06/19/23 12:51 Dose: Infused Documented By: Admin: 06/19/23 11:27 Dose: 999 mls/hr Documented By: Infusion: 06/19/23 11:18 Dose: Infused Documented By: Admin: 06/19/23 10:17 Dose: 999 mls/hr Documented By: BEBETO Ioversol (Optiray 320 125ml) 110 ml IV ONCE ONE Stop: 06/19/23 12:08 Last Admin: 06/19/23 12:10 Dose: 110 ml Documented By: MIGUEL Labetalol HCl (Labetalol Hcl Iv 5 Mg/Ml 20ml) 10 mg IV NOW STA Stop: 06/19/23 13:00 Last Admin: 06/19/23 13:08 Dose: 10 mg Documented By: BEBETO Co-signed By: JAROCHO Morphine Sulfate (Morphine Sulfate 4 Mg/Ml 1 Ml Carp\Vial) 4 mg IV NOW STA Stop: 06/19/23 11:00 Last Admin: 06/19/23 11:27 Dose: 4 mg Documented By: BEBETO Imaging Data Radiologist's Impression: Chest X-Ray 06/19/23 09:44 XR chest 1V portable HISTORY: fall COMPARISON: Chest 12/29/2019. FINDINGS: The lungs are clear. Cardiac silhouette is normal in size. No pleural effusions. No pneumothorax. IMPRESSION: No acute process. ACT 112: Negative or not required by law. Electronically signed by: Nilson Echevarria M.D. 06/19/2023 11:01 AM Hip/Pelvis X-Ray 06/19/23 09:44 XR hip LT 2V w pelvis CLINICAL HISTORY: fall COMPARISON STUDY: None. FINDINGS: Mild displaced left femoral neck fracture. This demonstrate up to 1 cm of superior displacement. No dislocation. No fractures within the pelvis or right hip. IMPRESSION: Mildly displaced left femoral neck fracture. ACT 112: Negative or not required by law. Electronically signed by: Nilson Echevarria M.D. 06/19/2023 11:02 AM Abdomen/Pelvis CT 06/19/23 10:[address] WITH IV CONTRAST CT DOSE: HISTORY: fall, L hip pain TECHNIQUE: Multiaxial CT images of the abdomen and pelvis were performed following the use of intravenous contrast. A dose lowering technique was utilized adhering to the principles of ALARA. COMPARISON STUDY: Abdomen and pelvis CT 02/26/2017. FINDINGS: No pneumoperitoneum. No pneumatosis. There is a mildly displaced left femoral neck fracture. Hepatic steatosis. Cholelithiasis. No gallbladder wall thickening. The pancreas, spleen, and adrenal glands unremarkable. The main portal vein is patent. No retroperitoneal hematoma or lymphadenopathy. Normal caliber abdominal aorta. A few subcentimeter hypodensities within the kidneys are technically too small to characterize but favor cysts. No hydronephrosis. The bladder is mildly distended. The prostate gland is enlarged. There is no bowel wall thickening or obstruction. IMPRESSION: 1. Mildly displaced left femoral neck fracture. No dislocation. 2. Hepatic steatosis. 3. Cholelithiasis. 4. No bowel wall thickening or obstruction. 5. Additional findings as described above. ACT 112: Negative or not required by law. Electronically signed by: Nilson Echevarria M.D. 06/19/2023 12:[address] 06/19/23 10:[address] DOSE: 3777.67 mGy.cm HISTORY: fall TECHNIQUE: Multiaxial CT images of the cervical spine were performed and reformatted in the sagittal and coronal plane without the use of contrast. A dose lowering technique was utilized adhering to the principles of ALARA. COMPARISON: None. FINDINGS: No fractures. No subluxation. Prevertebral soft tissues and the C1-C2 interval are intact. No pneumothorax. IMPRESSION: No fractures within the cervical spine. ACT 112: Negative or not required by law. Electronically signed by: Nilson Echevarria M.D. 06/19/2023 12:45 PM Chest CTA 06/19/23 10:55 CHEST CTA for PULMONARY ARTERIES CT DOSE: HISTORY: PE, tachycardia, fall last night TECHNIQUE: Multiaxial CT images of the chest were performed following the intravenous administration of contrast to evaluate the pulmonary arteries. 3D/Maximal intensity projection images were also obtained. Sagittal and coronal reformations were also reviewed. A dose lowering technique was utilized adhering to the principles of ALARA. COMPARISON STUDY: None. FINDINGS: The abdominal structures will be reported on the same day abdomen and pelvis CT. Normal caliber thoracic aorta with no evidence for a dissection. No filling defects within the pulmonary arteries to suggest a pulmonary embolus. No acute fractures identified. Normal esophagus. The thyroid gland enhances normally. No mediastinal or hilar lymphadenopathy. No pleural or pericardial effusions. The heart is normal in size. The central airways are patent. Mild dependent changes seen within the lung bases. No focal lung consolidations to suggest a pneumonia. No evidence for pulmonary edema. IMPRESSION: 1. No evidence for a pulmonary embolus. 2. No acute traumatic process within the chest. 3. The abdominal structures will be reported on the same day abdomen and pelvis CT. ACT 112: Negative or not required by law. Electronically signed by: Nilson Echevarria M.D. 06/19/2023 12:[address] 06/19/23 10:[address] DOSE: HISTORY: fall TECHNIQUE: Multiaxial CT images of the head were performed without the use of intravenous contrast. Automated exposure control was utilized for this study. A dose lowering technique was utilized adhering to the principles of ALARA. Comparison: Head CT 12/29/2019. Findings: The paranasal sinuses and mastoid air cells are clear. The calvarium and skull base are intact. The ventricles and sulci are within normal limits. There is no mass, hematoma, midline shift, or acute infarct. Old small right basal ganglia infarct. Impression: No acute intracranial abnormality. ACT 112: Negative or not required by law. Electronically signed by: Nilson Echevarria M.D. 06/19/2023 12:42 PM Discharge Plan Visit Data Chief Complaint: Hip Pain Stated Complaint: L HIP PAIN ED Provider: Joshua Lopez Discharge Problem: Fall, Closed fracture of left hip, Tachycardia, Hypertensive urgency Patient Disposition: Being Evaluated by Hospitalist Forms Stand Alone Forms: [facility] [place] [employer] Prescriptions Prescriptions: No Action fluoxetine 40 mg capsule 80 mg PO HS mirtazapine 45 mg tablet 45 mg PO HS aripiprazole 5 mg tablet 5 mg PO HS liothyronine 25 mcg tablet 25 mcg PO HS lisinopril 40 mg tablet 40 mg PO HS lamotrigine 100 mg tablet 100 mg PO HS atorvastatin 40 mg tablet 40 mg PO HS aspirin 81 mg tablet,delayed release (DR/EC) 81 mg PO HS metformin 500 mg tablet extended release 24 hr 500 mg PO HS Referrals Referrals: Cory Carter MD [Primary Care Provider] - Discharge Problem: Fall Qualifiers: Encounter type: initial encounter Qualified Code(s): W19.XXXA - Unspecified fall, initial encounter Closed fracture of left hip Qualifiers: Encounter type: initial encounter Qualified Code(s): S72.002A - Fracture of unspecified part of neck of left femur, initial encounter for closed fracture
[2023-06-19 10:32] LABS: Troponin I High Sensitivity 10.4 pg/ml (0-20)
[2023-06-19 10:41] LABS: Basophils # (auto) 0.03 K/uL (0.00-0.20); Basophils % (auto) 0.2 %; Immature Granulocytes # (auto) 0.05 K/uL (0.01-0.20); Immature Granulocytes % (auto) 0.3 %; Lymphocytes # (auto) 0.76 K/uL (1.20-3.40); Monocytes # (auto) 0.59 K/uL (0.11-0.59); Monocytes % (auto) 3.8 %; Neutrophils # (auto) 13.92 K/uL (1.40-6.50); Neutrophils % (auto) 90.7 %; RBC Morphology Unremarkable
[2023-06-19] MEDS ORDERED: MoRPHine SULFATE 4 MG/ML 1 ML CARP\\VIAL IV STA (10:59)
--- NOTE | 2023-06-19 11:03 | XRay Report ---
XR chest 1V portable HISTORY: fall COMPARISON: Chest 12/29/2019. FINDINGS: The lungs are clear. Cardiac silhouette is normal in size. No pleural effusions. No pneumot horax. IMPRESSION: No acute process. ACT 112: Negative or not required by law. Electronically signed by: Nilson Echevarria M.D. 06/19/2023 11:01 AM
--- NOTE | 2023-06-19 11:03 | XRay Report ---
XR hip LT 2V w pelvis CLINICAL HISTORY: fall COMPARISON STUDY: None. FINDINGS: Mild displaced left femoral neck fracture. This demonstrate up to 1 cm of superior displace ment. No dislocation. No fractures within the pelvis or right hip. IMPRESSION: Mildly displaced left femoral neck fracture. ACT 112: Negative or not required by law. Electronically signed by: Nilson Echevarria M.D. 06/19/2023 11:02 AM
[2023-06-19 11:28] LABS: Prothrombin Time 11.4 Seconds (9.0-12.0)
[2023-06-19 12:01] LABS: Appearance Urine Clear (Clear); Bacteria Urine Automated Negative (Negative); Bilirubin Urine Negative (Negative); Blood Urine 1+ (Negative); Cast Urine Automated 0 /lpf (0-5); Color Urine Yellow; Glucose Urine UA 2+ (Negative); Ketones Urine 1+ (Negative); Leukocyte Esterase Urine Negative (Negative); Nitrite Urine Negative (Negative); Protein Urine Trace (Negative); RBC Urine Automated 0-4 /hpf (0-4); Specific Gravity Urine 1.021 (1.000-1.030); Urobilinogen Urine Negative (Negative)
--- NOTE | 2023-06-19 12:05 | Electrocardiogram Report ---
Test Reason : Blood Pressure : / mmHG Vent. Rate : 123 BPM Atrial Rate : 123 BPM P-R Int : 154 ms QRS Dur : 094 ms QT Int : 320 ms P-R-T Axes : 055 059 047 degrees QTc Int : 458 ms Sinus tachycardia Otherwise normal ECG When compared with ECG of 29-DEC-2019 11:12, Nonspecific T wave abnormality no longer evident in Inferior leads Nonspecific T wave abnormality no longer evident in Lateral leads Confirmed by Parish Shannon ([id number]) on 06/19/2023 12:05:17 PM Referred By: REFERRED SELF Confirmed By:Tremayne Shannon
[2023-06-19] MEDS ORDERED: OPTIRAY 320 125ml IV ONE (12:07)
--- NOTE | 2023-06-19 12:43 | CT Scan Report ---
HEAD CT NONCONTRAST CT DOSE: HISTORY: fall TECHNIQUE: Multiaxial CT images of the head were performed without the use of intravenous contrast. A utomated exposure control was utilized for this study. A dose lowering technique was utilized adheri ng to the principles of ALARA. Comparison: Head CT 12/29/2019. Findings: The paranasal sinuses and mastoid air cells are clear. The calvarium and skull base are int act. The ventricles and sulci are within normal limits. There is no mass, hematoma, midline shift, or acute infarct. Old small right basal ganglia infarct. Impression: No acute intracranial abnormality. ACT 112: Negative or not required by law. Electronically signed by: Nilson Echevarria M.D. 06/19/2023 12:42 PM
--- NOTE | 2023-06-19 12:47 | CT Scan Report ---
CERVICAL SPINE CT CT DOSE: 3777.67 mGy.cm HISTORY: fall TECHNIQUE: Multiaxial CT images of the cervical spine were performed and reformatted in the sagittal and coronal plane without the use of contrast. A dose lowering technique was utilized adhering to th e principles of ALARA. COMPARISON: None. FINDINGS: No fractures. No subluxation. Prevertebral soft tissues and the C1-C2 interval are intact. No pneumothorax. IMPRESSION: No fractures within the cervical spine. ACT 112: Negative or not required by law. Electronically signed by: Nilson Echevarria M.D. 06/19/2023 12:45 PM
--- NOTE | 2023-06-19 12:52 | CT Scan Report ---
CHEST CTA for PULMONARY ARTERIES CT DOSE: HISTORY: PE, tachycardia, fall last night TECHNIQUE: Multiaxial CT images of the chest were performed following the intravenous administration of contrast to evaluate the pulmonary arteries. 3D/Maximal intensity projection images were also obta ined. Sagittal and coronal reformations were also reviewed. A dose lowering technique was utilized a dhering to the principles of ALARA. COMPARISON STUDY: None. FINDINGS: The abdominal structures will be reported on the same day abdomen and pelvis CT. Normal ricky iber thoracic aorta with no evidence for a dissection. No filling defects within the pulmonary arteri es to suggest a pulmonary embolus. No acute fractures identified. Normal esophagus. The thyroid gland enhances normally. No mediastinal or hilar lymphadenopathy. No pleural or pericardial effusions. The heart is normal in size. The central airways are patent. Mild dependent changes seen within the lung bases. No focal lung consolidations to suggest a pneumonia. No evidence for pulmonary edema. IMPRESSION: 1. No evidence for a pulmonary embolus. 2. No acute traumatic process within the chest. 3. The abdominal structures will be reported on the same day abdomen and pelvis CT. ACT 112: Negative or not required by law. Electronically signed by: Nilson Echevarria M.D. 06/19/2023 12:50 PM
--- NOTE | 2023-06-19 12:56 | CT Scan Report ---
ABDOMEN AND PELVIS CT WITH IV CONTRAST CT DOSE: HISTORY: fall, L hip pain TECHNIQUE: Multiaxial CT images of the abdomen and pelvis were performed following the use of intrave nous contrast. A dose lowering technique was utilized adhering to the principles of ALARA. COMPARISON STUDY: Abdomen and pelvis CT 02/26/2017. FINDINGS: No pneumoperitoneum. No pneumatosis. There is a mildly displaced left femoral neck fracture . Hepatic steatosis. Cholelithiasis. No gallbladder wall thickening. The pancreas, spleen, and adrena l glands unremarkable. The main portal vein is patent. No retroperitoneal hematoma or lymphadenopathy . Normal caliber abdominal aorta. A few subcentimeter hypodensities within the kidneys are technicall y too small to characterize but favor cysts. No hydronephrosis. The bladder is mildly distended. The prostate gland is enlarged. There is no bowel wall thickening or obstruction. IMPRESSION: 1. Mildly displaced left femoral neck fracture. No dislocation. 2. Hepatic steatosis. 3. Cholelithiasis. 4. No bowel wall thickening or obstruction. 5. Additional findings as described above. ACT 112: Negative or not required by law. Electronically signed by: Nilson Echevarria M.D. 06/19/2023 12:53 PM
[2023-06-19] MEDS ORDERED: LABETALOL HCL IV 5 MG/ML 20ML IV STA (12:59)
--- NOTE | 2023-06-19 13:32 | History & Physical Report ---
Date of Service June 19, 2023 Assessment & Plan (1) Closed fracture of left hip: Plan: This is a 67 y/o male with DM2, HTN, prior CVA, dyslipidemia, depression, anxiety, and other history as outlined who presents to the ED today after a fall last night with resultant left hip pain. Work-up in the ED reveals a mildly displaced left femoral neck fracture. Pt was also noted to be markedly hypertensive and tachycardic. Further evaluation reveals no PE, no int raabdominal hemorrhage, no acute intracranial abnormality. COVID testing negative. Pt denies use of alcohol or other substances. He does not that he has not taken any of his routine meds since evening since he usually takes medications all together at night. He denies anginal symptoms. No recent changes in functional status prior to the fall. Last ECHO was in 2019 when he was admitted for CVA (results above). Outpatient PCP notes were reviewed - last A1c >1 year ago, BP in the office seems to run in the 140s. Pt has received labetalol 10 mg IV x 1 in the ED with improvement of BP from 229/114 to 184/112. - Admit to PCU - Consult orthopedics - ED provider spoke with ortho on-call who are tentatively planning for OR tomorrow PM if medically optimized. Will make pt NPO at midnight . - Pain control - scheduled acetaminophen, IV morphine prn - Add Lopressor 25 mg BID due to persistent tachycardia/elevated BP, resume outpatient Lisinopril with first dose now - AM labs - CBC, BMP - Fall precautions -No prior cardiac history except high blood pressure -Has been ambulant at home without any cardiac symptoms -Blood pressure will be controlled prior to the surgery -There is no medical contraindication for proposed surgery (2) Tachycardia: Plan: Unclear etiology - EKG with sinus rhythm, no atrial fib/flutter Beta-syed as above (3) Hypertensive urgency: Plan: Suspect multifactorial due to missed medications, pain, and anxiety Blood pressure was noted to be significantly high in the emergency room and the systolic more than 200 Received intravenous labetalol 10 mg and it was improving Will start Lopressor 25 mg p.o. twice daily and give his p.m. medications lisinopril 40 mg now Will monitor the blood pressure as he may need more BP medications (4) Type 2 diabetes mellitus: Plan: Check A1c in AM Diabetic diet [facility] Holding Metformin due to IV contrast today (5) GRIFFIN (generalized anxiety disorder): (6) Major depressive disorder without psychotic features: (7) Hyperlipidemia: Plan Pt seen and reviewed with attending physician, Dr. Arana. Plan of care discussed and as outlined above. Code Status: Full code DVT prophylaxis: SCDs for now pending OR tomorrow Belen Chicas PA-C History of Present Illness Chief Complaint: left hip pain s/p fall Primary Care Provider: Cory Carter MD This is a 67 y/o male with DM2, HTN, prior CVA, dyslipidemia, depression, anxiety, and other history as outlined who presents to the ED today after a fall last night with resultant left hip pain. Pt states he was getting up from the couch last evening when he caught his right foot on a stack of books. He landed on his left hip and buttock with resultant immediate pain in the lateral left hip. He was able to pull himself up onto the couch where he spent the night, but he continued to have pain so he called for help this morning. He is not able to bear weight on the LLE without pain. He denies numbness or tingling in the LE. His pain is currently 6/10 after fentanyl and morphine. Work-up in the ED revealed a mildly displaced left femoral neck fracture. Pt denies hitting his head or LOC. He denies chest pain at rest or with exertion, dizziness, syncope, palpitations, shortness of breath at rest, N/V/D. He has chronic mild YEN that is unchanged from baseline. He does not routinely check his BP or blood sugar at home. He denies residual deficits from CVA in 2019. He missed his routine medication last night due to his fall. Allergies Allergy/AdvReac Type Severity Reaction Status Date / Time No Known Allergies Allergy Unknown Verified 02/26/17 21:05 Home Medications Medication Instructions Recorded Confirmed Type aripiprazole 5 mg tablet 5 mg PO HS 12/29/19 06/19/23 History fluoxetine 40 mg capsule 80 mg PO HS 12/29/19 06/19/23 History mirtazapine 45 mg tablet 45 mg PO HS 12/29/19 06/19/23 History aspirin 81 mg tablet,delayed 81 mg PO HS 06/19/23 06/19/23 History release atorvastatin 40 mg tablet 40 mg PO HS 06/19/23 06/19/23 History lamotrigine 100 mg tablet 100 mg PO HS 06/19/23 06/19/23 History liothyronine 25 mcg tablet 25 mcg PO HS 06/19/23 06/19/23 History lisinopril 40 mg tablet 40 mg PO HS 06/19/23 06/19/23 History metformin 500 mg tablet,extended 500 mg PO HS 06/19/23 06/19/23 History release 24 hr Past Med/Surg History Medical History Cholelithiasis Hepatic steatosis History of nephrolithiasis Homocystinuria HTN (hypertension) Cerebrovascular accident (CVA) of right basal ganglia GRIFFIN (generalized anxiety disorder) Major depressive disorder without psychotic features Hyperlipidemia Type 2 diabetes mellitus Surgical History History of lithotripsy S/P appendectomy Family History Mother Depression Uncle Stroke Social History Smoking Status: Never smoker Tobacco Type: Cigarettes Hx Alcohol Use: No Hx Substance Use: No Preferred Language: [place]de[place] Communication Ability: Effective 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 Beliefs That Will Affect Care: None Current Living Situation: Alone Other Information That Helps Us Care for You: No Feels Safe at Home: Yes Safety Concerns: Feels Safe At This Time Assistive Devices: Glasses Review of Systems Review of Systems: All systems reviewed & are unremarkable except as noted in HPI & below Constitutional: no fever, no chills and no sweats Eyes: no diplopia Ear, Nose, Mouth, Throat: no nasal congestion and no sore throat Respiratory: no cough, no dyspnea and no wheezing Cardiovascular: no chest pain, no palpitations, no syncope and no edema Gastrointestinal: no abdominal pain, no nausea, no vomiting and no diarrhea/loose stools Genitourinary: no dysuria or no hematuria Musculoskeletal: as per Subjective / HPI Integumentary: no rash Neurologic: no generalized weakness, no dizziness, no headache(s) and no confusion Physical Exam Physical Exam: General: awake, alert, NAD HEENT: no scleral icterus, slightly dry oral mucosa Neck: trachea midline Heart: regular but tachycardic Lungs: CTA bilaterally on the anterior, no W/R/R, no tachypnea, no increased WOB Abdomen: soft, +BS Extremities: no pedal edema; LLE externally rotated and shortened, bilateral LE NVI Pulses: radial, PT, and DP pulses 2+ and equal bilaterally Skin: no jaundice Neuro: oriented x 3, no dysarthria, able to move toes bilaterally Results & Data Results & Data Vital Signs (Past 12 Hours) Vital Signs Temp Pulse Resp BP Pulse Ox O2 Del Method 06/19/23 13:08 122 H 184/112 H 06/19/23 13:03 184/112 H 93 06/19/23 13:00 187/106 H 90 06/19/23 12:33 229/114 H 91 06/19/23 12:00 115 H 30 H 188/110 H 91 06/19/23 11:35 120 H 25 H 192/114 H 94 06/19/23 11:00 118 H 26 H 93 06/19/23 10:30 121 H 25 H 92 06/19/23 10:00 132 H 23 200/108 H 06/19/23 09:44 122 H 20 96 Room Air 06/19/23 09:30 122 H 20 202/114 H 06/19/23 09:28 36.9 C 123 H 18 209/124 H 96 Room Air 06/19/23 09:27 124 H Laboratory Results Laboratory Results - last 24 hr 06/19/23 06/19/23 06/19/23 09:30 09:50 10:35 WBC 15.35 H RBC 4.61 L Hgb 13.6 L Hct 39.3 L MCV 85.2 MCH 29.5 MCHC 34.6 RDW Std Deviation 41.2 RDW Coeff of Timi 13.2 Plt Count 335 MPV 9.7 Immature Gran % (Auto) 0.3 Neut % (Auto) 90.7 Lymph % (Auto) 5.0 Mcintosh % (Auto) 3.8 Eos % (Auto) 0.0 Baso % (Auto) 0.2 Neut # (Auto) 13.92 H Lymph # (Auto) 0.76 L Mcintosh # (Auto) 0.59 Eos # (Auto) 0.00 Baso # (Auto) 0.03 Immature Gran # (Auto) 0.05 RBC Morphology Unremarkable PT Cancelled INR Cancelled Sodium 140 Potassium 4.1 Chloride 107 Carbon Dioxide 19 L Anion Gap 14 H BUN 21 Creatinine 1.14 Est Cr Clr Drug Dosing 68.8 Est GFR ( Amer) 77.8 Est GFR (Non-Af Amer) 67.1 BUN/Creatinine Ratio 18.4 Glucose 215 H Calcium 9.2 Total Bilirubin 0.7 AST 23 ALT 20 Alkaline Phosphatase 75 Total Creatine Kinase 248 H Troponin I High Sens 10.4 Total Protein 7.4 Albumin 4.3 Globulin 3.1 Albumin/Globulin Ratio 1.4 TSH 1.461 Urine Color Urine Appearance Urine pH Ur Specific [place] Urine Protein Urine Glucose (UA) Urine Ketones Urine Blood Urine Nitrite Urine Bilirubin Urine Urobilinogen Ur Leukocyte Esterase Urine WBC (Auto) Urine RBC (Auto) U Hyaline Cast (Auto) U Epithel Cells (Auto) Urine Bacteria (Auto) Ethyl Alcohol mg/dL < 10.0 SARS-CoV-2, RNA, NAAT NEGATIVE 06/19/23 06/19/23 10:43 11:35 WBC RBC Hgb Hct MCV MCH MCHC RDW Std Deviation RDW Coeff of Timi Plt Count MPV Immature Gran % (Auto) Neut % (Auto) Lymph % (Auto) Mcintosh % (Auto) Eos % (Auto) Baso % (Auto) Neut # (Auto) Lymph # (Auto) Mcintosh # (Auto) Eos # (Auto) Baso # (Auto) Immature Gran # (Auto) RBC Morphology PT 11.4 INR 1.0 Sodium Potassium Chloride Carbon Dioxide Anion Gap BUN Creatinine Est Cr Clr Drug Dosing Est GFR ( Amer) Est GFR (Non-Af Amer) BUN/Creatinine Ratio Glucose Calcium Total Bilirubin AST ALT Alkaline Phosphatase Total Creatine Kinase Troponin I High Sens Total Protein Albumin Globulin Albumin/Globulin Ratio TSH Urine Color Yellow Urine Appearance Clear Urine pH 7.0 Ur Specific [place] 1.021 Urine Protein Trace H Urine Glucose (UA) 2+ H Urine Ketones 1+ H Urine Blood 1+ H Urine Nitrite Negative Urine Bilirubin Negative Urine Urobilinogen Negative Ur Leukocyte Esterase Negative Urine WBC (Auto) 1-5 Urine RBC (Auto) 0-4 U Hyaline Cast (Auto) 0 U Epithel Cells (Auto) 5-10 H Urine Bacteria (Auto) Negative Ethyl Alcohol mg/dL SARS-CoV-2, RNA, NAAT Diagnostic Findings Chest X-Ray 06/19/23 09:44 XR chest 1V portable HISTORY: fall COMPARISON: Chest 12/29/2019. FINDINGS: The lungs are clear. Cardiac silhouette is normal in size. No pleural effusions. No pneumothorax. IMPRESSION: No acute process. ACT 112: Negative or not required by law. Electronically signed by: Nilson Echevarria M.D. 06/19/2023 11:01 AM Hip/Pelvis X-Ray 06/19/23 09:44 XR hip LT 2V w pelvis CLINICAL HISTORY: fall COMPARISON STUDY: None. FINDINGS: Mild displaced left femoral neck fracture. This demonstrate up to 1 cm of superior displacement. No dislocation. No fractures within the pelvis or right hip. IMPRESSION: Mildly displaced left femoral neck fracture. ACT 112: Negative or not required by law. Electronically signed by: Nilson Echevarria M.D. 06/19/2023 11:02 AM Abdomen/Pelvis CT 06/19/23 10:[address] WITH IV CONTRAST CT DOSE: HISTORY: fall, L hip pain TECHNIQUE: Multiaxial CT images of the abdomen and pelvis were performed following the use of intravenous contrast. A dose lowering technique was utilized adhering to the principles of ALARA. COMPARISON STUDY: Abdomen and pelvis CT 02/26/2017. FINDINGS: No pneumoperitoneum. No pneumatosis. There is a mildly displaced left femoral neck fracture. Hepatic steatosis. Cholelithiasis. No gallbladder wall thickening. The pancreas, spleen, and adrenal glands unremarkable. The main portal vein is patent. No retroperitoneal hematoma or lymphadenopathy. Normal caliber abdominal aorta. A few subcentimeter hypodensities within the kidneys are technically too small to characterize but favor cysts. No hydronephrosis. The bladder is mildly distended. The prostate gland is enlarged. There is no bowel wall thickening or obstruction. IMPRESSION: 1. Mildly displaced left femoral neck fracture. No dislocation. 2. Hepatic steatosis. 3. Cholelithiasis. 4. No bowel wall thickening or obstruction. 5. Additional findings as described above. ACT 112: Negative or not required by law. Electronically signed by: Nilson Echevarria M.D. 06/19/2023 12:[address] 06/19/23 10:[address] DOSE: 3777.67 mGy.cm HISTORY: fall TECHNIQUE: Multiaxial CT images of the cervical spine were performed and reformatted in the sagittal and coronal plane without the use of contrast. A dose lowering technique was utilized adhering to the principles of ALARA. COMPARISON: None. FINDINGS: No fractures. No subluxation. Prevertebral soft tissues and the C1-C2 interval are intact. No pneumothorax. IMPRESSION: No fractures within the cervical spine. ACT 112: Negative or not required by law. Electronically signed by: Nilson Echevarria M.D. 06/19/2023 12:45 PM Chest CTA 06/19/23 10:55 CHEST CTA for PULMONARY ARTERIES CT DOSE: HISTORY: PE, tachycardia, fall last night TECHNIQUE: Multiaxial CT images of the chest were performed following the intravenous administration of contrast to evaluate the pulmonary arteries. 3D/Maximal intensity projection images were also obtained. Sagittal and coronal reformations were also reviewed. A dose lowering technique was utilized adhering to the principles of ALARA. COMPARISON STUDY: None. FINDINGS: The abdominal structures will be reported on the same day abdomen and pelvis CT. Normal caliber thoracic aorta with no evidence for a dissection. No filling defects within the pulmonary arteries to suggest a pulmonary embolus. No acute fractures identified. Normal esophagus. The thyroid gland enhances normally. No mediastinal or hilar lymphadenopathy. No pleural or pericardial effusions. The heart is normal in size. The central airways are patent. Mild dependent changes seen within the lung bases. No focal lung consolidations to suggest a pneumonia. No evidence for pulmonary edema. IMPRESSION: 1. No evidence for a pulmonary embolus. 2. No acute traumatic process within the chest. 3. The abdominal structures will be reported on the same day abdomen and pelvis CT. ACT 112: Negative or not required by law. Electronically signed by: Nilson Echevarria M.D. 06/19/2023 12:[address] 06/19/23 10:[address] DOSE: HISTORY: fall TECHNIQUE: Multiaxial CT images of the head were performed without the use of intravenous contrast. Automated exposure control was utilized for this study. A dose lowering technique was utilized adhering to the principles of ALARA. Comparison: Head CT 12/29/2019. Findings: The paranasal sinuses and mastoid air cells are clear. The calvarium and skull base are intact. The ventricles and sulci are within normal limits. There is no mass, hematoma, midline shift, or acute infarct. Old small right basal ganglia infarct. Impression: No acute intracranial abnormality. ACT 112: Negative or not required by law. Electronically signed by: Nilson Echevarria M.D. 06/19/2023 12:42 PM Medications Administered Discontinued Medications Fentanyl Citrate (Fentanyl Citrate Pf 100 Mcg/2 Ml Vial) 50 mcg IV NOW STA Stop: 06/19/23 10:05 Last Admin: 06/19/23 10:17 Dose: 50 mcg Documented By: BEBETO Sodium Chloride (Nss) 1,000 mls @ 999 mls/hr IV .Q1H1M DONNA Stop: 06/19/23 12:15 Last Infusion: 06/19/23 12:51 Dose: Infused Documented By: Admin: 06/19/23 11:27 Dose: 999 mls/hr Documented By: Infusion: 06/19/23 11:18 Dose: Infused Documented By: Admin: 06/19/23 10:17 Dose: 999 mls/hr Documented By: BEBETO Ioversol (Optiray 320 125ml) 110 ml IV ONCE ONE Stop: 06/19/23 12:08 Last Admin: 06/19/23 12:10 Dose: 110 ml Documented By: MIGUEL Labetalol HCl (Labetalol Hcl Iv 5 Mg/Ml 20ml) 10 mg IV NOW STA Stop: 06/19/23 13:00 Last Admin: 06/19/23 13:08 Dose: 10 mg Documented By: BEBETO Co-signed By: JAROCHO Morphine Sulfate (Morphine Sulfate 4 Mg/Ml 1 Ml Carp\Vial) 4 mg IV NOW STA Stop: 06/19/23 11:00 Last Admin: 06/19/23 11:27 Dose: 4 mg Documented By: BEBETO Supervising Physician Co-Signing Physician Notes Attending addendum The patient was seen and examined in emergency room in presence of the parent He tripped and fell with fracture of the left hip Did not have any symptoms prior to the fall Complains of pain in the left hip Denies any other symptoms On examination Lying in bed with minimal distress due to left hip pain Noted to have a very high blood pressure in the emergency room and tachycardia Chest-clear to auscultate bilaterally Heart-S1-S2, regular, no murmur Abdomen-benign Extremities-negative for any edema LOSS CONTROL CONSULTANT-alert, awake and oriented x 3 His admission labs, EKG and imaging studies reviewed Status post left hip fracture following a mechanical fall History of hypertension, type 2 diabetes, major depressive disorder without any psychotic features and hyperlipidemia There is no contraindication for proposed surgery Will control the blood pressure prior to surgery Agree with assessment and plan as outlined above by HERBER Zayas Dr (1) Closed fracture of left hip Encounter type: initial encounter Qualified Code(s): S72.002A - Fracture of unspecified part of neck of left femur, initial encounter for closed fracture (4) Type 2 diabetes mellitus Diabetes mellitus complication status: without complication Diabetes mellitus group home insulin use: 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
[2023-06-19] MEDS ORDERED: lisinopril 40 MG TAB PO STA (14:02)
[2023-06-19] MEDS ORDERED: GLUCAGON FOR INJ 1 MG VIAL SQ PRN (14:04)
[2023-06-19] MEDS ORDERED: DEXTROSE 50% 50 ML SYRINGE IV PRN (14:04)
[2023-06-19] MEDS ORDERED: CARBOHYDRATES FOR HYPOGLYCEMIA PO PRN (14:04)
[2023-06-19] MEDS ORDERED: GLUCOSE 10 TAB/TUBE PO PRN (14:04)
[2023-06-19] MEDS ORDERED: GLUCOSE 40% GEL 15 GM TUBE PO PRN (14:04)
[2023-06-19] MEDS: MoRPHine SULFATE 4 MG/ML 1 ML CARP\\VIAL IV PRN (15:17)
--- NOTE | 2023-06-19 15:42 | Anesthesiology Consultation ---
Date of Service June 19, 2023 Assessment & Plan Chart Review Chart Review: Acceptable Risk for Surgery and Patient NOT seen in Pre Admission Testing Consults Requested none History Surgery Operation Date: 06/20/23 08:30 Proposed Procedures p Total Hip Arthroplasty Cemented(Left) - Clyde Yang MD Height/Weight Height: 5 ft 11 in Weight: 87.203 kg Allergies Allergy/AdvReac Type Severity Reaction Status Date / Time No Known Allergies Allergy Unknown Verified 02/26/17 21:05 Medications Home Medications Medication Instructions Recorded Confirmed Last Taken aripiprazole 5 mg tablet 5 mg PO HS 12/29/19 06/19/23 06/17/23 fluoxetine 40 mg capsule 80 mg PO HS 12/29/19 06/19/23 06/17/23 mirtazapine 45 mg tablet 45 mg PO HS 12/29/19 06/19/23 06/17/23 aspirin 81 mg tablet,delayed 81 mg PO HS 06/19/23 06/19/23 06/17/23 release atorvastatin 40 mg tablet 40 mg PO HS 06/19/23 06/19/23 06/17/23 lamotrigine 100 mg tablet 100 mg PO HS 06/19/23 06/19/23 06/17/23 liothyronine 25 mcg tablet 25 mcg PO HS 06/19/23 06/19/23 06/17/23 lisinopril 40 mg tablet 40 mg PO HS 06/19/23 06/19/23 06/17/23 metformin 500 mg tablet,extended 500 mg PO HS 06/19/23 06/19/23 06/17/23 release 24 hr Active Medications Generic Name Dose Route Start Last Admin Trade Name Elmer PRN Reason Stop Dose Admin Morphine Sulfate 4 mg 06/19/23 14:03 06/19/23 15:17 Morphine Sulfate 4 Mg/Ml 1 Ml Carp\Vial IV 07/03/23 14:02 4 mg Q4H PRN Administration Pain Past Medical History Medical History Cholelithiasis Hepatic steatosis History of nephrolithiasis Homocystinuria HTN (hypertension) Cerebrovascular accident (CVA) of right basal ganglia GRIFFIN (generalized anxiety disorder) Major depressive disorder without psychotic features Hyperlipidemia Type 2 diabetes mellitus Exercise / Class Metabolic Activity II 4-5 Yardwork/Stairs/Walk up hill Past Family History Family History Mother Depression Uncle Stroke Past Surgical History Surgical History History of lithotripsy S/P appendectomy Past Anesthesia History No Hx of Anesthesia Complications and No Family Hx of Anesthesia Complications History of PONV No Hx of PONV and No Hx of Motion Sickness Social History Smoking Status: Never smoker Hx Alcohol Use: No Hx Substance Use: No Physical Exam Vital Signs Last Vital Signs Temp 36.7 C 06/19/23 15:07 Pulse 101 H 06/19/23 15:07 Resp 22 06/19/23 15:07 BP 192/96 H 06/19/23 15:07 Pulse Ox 92 06/19/23 15:07 O2 Del Method Room Air 06/19/23 15:07 Testing Laboratory Results 06/19/23 09:30 06/19/23 09:30 PT 11.4 Seconds (9.0-12.0) 06/19/23 10:43 INR 1.0 (0.9-1.1) 06/19/23 10:43 Urine Color Yellow 06/19/23 11:35 Urine Appearance Clear (Clear) 06/19/23 11:35 Urine pH 7.0 (4.5-7.5) 06/19/23 11:35 Ur Specific [place] 1.021 (1.000-1.030) 06/19/23 11:35 Urine Protein Trace (Negative) H 06/19/23 11:35 Urine Glucose (UA) 2+ (Negative) H 06/19/23 11:35 Urine Ketones 1+ (Negative) H 06/19/23 11:35 Urine Nitrite Negative (Negative) 06/19/23 11:35 Ur Leukocyte Esterase Negative (Negative) 06/19/23 11:35 Urine WBC (Auto) 1-5 /hpf (0-5) 06/19/23 11:35 Urine RBC (Auto) 0-4 /hpf (0-4) 06/19/23 11:35 U Hyaline Cast (Auto) 0 /lpf (0-5) 06/19/23 11:35 U Epithel Cells (Auto) 5-10 /lpf (0-5) H 06/19/23 11:35 Urine Bacteria (Auto) Negative (Negative) 06/19/23 11:35 Electrocardiogram Date: 06/19/23 Findings: + ST @ (@ 123) Chest X-Ray Date: 06/19/23 Findings: + NAD Echocardiogram Date: 12/29/19 EF: 60% LV Function: normal (LV Hyperdynamic) RWMA: + none Other Findings: + LVH (mild) Valvular Disease: + no significant valvular disease Other Testing 12/29/2019-Neck CTA -Neg.
[2023-06-19] MEDS: METOPROLOL TARTRATE 25 MG TAB PO SCH (15:52)
[2023-06-19] MEDS: ACETAMINOPHEN 500 MG TAB PO SCH ×2 (15:52→21:55)
[2023-06-19] MEDS ORDERED: METOPROLOL TARTRATE 1 MG/ML VIAL IV PRN (16:07)
[2023-06-19] MEDS ORDERED: METOPROLOL TARTRATE 25 MG TAB PO STA (16:09)
[2023-06-19] MEDS ORDERED: METOPROLOL TARTRATE 50 MG TAB PO STA (16:09)
[2023-06-19] MEDS: INSULIN ASPART PER UNIT CHARGE SC SCH ×2 (17:13→21:03)
--- NOTE | 2023-06-19 17:39 | Orthopedic Consultation ---
Date of Service June 19, 2023 Assessment & Plan (1) Closed fracture of left hip: 67-year-old gentleman with multiple medical comorbidities status post a fall with a displaced femoral neck fracture. He is an independent ambulator. He does have multiple medical issues but looks pretty good and reasonably healthy today. Plan we talked about treatment options. After extensive discussion regarding proceed with a total hip arthroplasty considering his relatively young age activity status. The risks Mente this procedure explained the patient clued but not limited to DVT PE infection neurological and vascular bleeding palm pain limb range of motion sepsis fairly relieve his symptoms incomplete relief of symptoms etc. The patient understands and desires to proceed. Informed consent is obtained. Will keep him n.p.o. after midnight. Will plan on DVT prophylaxis including teds SCDs and aspirin postoperatively. This is all seem he is medically optimized. He was fairly hypertension and tachycardic on admission but this seems to be improved already. History of Present Illness Reason for Consultation: . Left displaced femoral neck fracture. Requesting Physician: . Attending Physician: Sirena Arana MD . Patient is a 67-year-old gentleman with multiple medical comorbidities including hypertension, history of stroke 3 years ago, diabetes, elevated cholesterol, and general anxiety disorder who injured his hip last evening. He was apparently getting up to walk and stumbled over some books. They fell on his hip. The acute onset of pain had trouble walking afterwards. He crawled to the couch and lay down overnight but it did not get any better. He could not walk in the [facility]. Brought to emergency room x-rays of left hip fracture. We are consulted for evaluation. No pre-existing hip problems. He does have since his stroke 3 years ago with some facial and voice issues along with some left upper extremity weakness. No left lower extremity weakness. He normally walks without a any assistive device. Allergies Allergy/AdvReac Type Severity Reaction Status Date / Time No Known Allergies Allergy Unknown Verified 02/26/17 21:05 Home Medications Medication Instructions Recorded Confirmed Type aripiprazole 5 mg tablet 5 mg PO HS 12/29/19 06/19/23 History fluoxetine 40 mg capsule 80 mg PO HS 12/29/19 06/19/23 History mirtazapine 45 mg tablet 45 mg PO HS 12/29/19 06/19/23 History aspirin 81 mg tablet,delayed 81 mg PO HS 06/19/23 06/19/23 History release atorvastatin 40 mg tablet 40 mg PO HS 06/19/23 06/19/23 History lamotrigine 100 mg tablet 100 mg PO HS 06/19/23 06/19/23 History liothyronine 25 mcg tablet 25 mcg PO HS 06/19/23 06/19/23 History lisinopril 40 mg tablet 40 mg PO HS 06/19/23 06/19/23 History metformin 500 mg tablet,extended 500 mg PO HS 06/19/23 06/19/23 History release 24 hr Past Med/Surg History Medical History Cholelithiasis Hepatic steatosis History of nephrolithiasis Homocystinuria HTN (hypertension) Cerebrovascular accident (CVA) of right basal ganglia GRIFFIN (generalized anxiety disorder) Major depressive disorder without psychotic features Hyperlipidemia Type 2 diabetes mellitus Surgical History History of lithotripsy S/P appendectomy Family History Mother Depression Uncle Stroke Social History Smoking Status: Never smoker Tobacco Type: Cigarettes Hx Alcohol Use: No Hx Substance Use: No Preferred Language: Slovenian Communication Ability: Effective High Pressure Operator Required: No Beliefs That Will Affect Care: None Current Living Situation: Alone Other Information That Helps Us Care for You: No Feels Safe at Home: Yes Safety Concerns: Feels Safe At This Time Assistive Devices: Glasses Review of Systems All systems reviewed & are unremarkable except as noted in HPI & below. Physical Exam . Physical exam shows a pleasant middle-age male. He is sitting up in bed and eating dinner. Examination of the left hip and leg reveals his leg to be slightly shortened and slightly externally rotated. He is got marked pain with any type of hip motion. No knee effusion. Can dorsiflex and plantarflex his foot appropriately. He is neurologically intact. The remainder the musculoskeletal exam is negative. Is got no neck or back pain. No upper extremity pain or symptoms. The right lower extremity is benign. Results & Data Results & Data Laboratory Results . Diagnostic Findings . X-rays of the pelvis and left hip were reviewed. Shows displaced femoral neck fracture. No segment signs of arthritis. He has had multiple other imaging studies including a CT scan of his neck all of which were negative. PG Care Time/CCT Total # of Minutes Spent Total Time Spent with Patient: Total time spent is greater than 50% in coordination of care (as documented) at patient's floor/unit and/or counseling patient: Coding Level of Care Code 08685 IN/OBS CONSULT LVL 5,80M Diagnoses Closed fracture of left hip S72.002A Encounter type: initial encounter (1) Closed fracture of left hip Encounter type: initial encounter Qualified Code(s): S72.002A - Fracture of unspecified part of neck of left femur, initial encounter for closed fracture
[2023-06-19] MEDS: FLUoxetine HCL 20 MG CAP PO SCH (21:02)
[2023-06-19] MEDS: MIRTAZAPINE SOLTAB 15 MG PO SCH (21:02)
[2023-06-19] MEDS: ATORVASTATIN 40 MG TAB PO SCH (21:02)
[2023-06-19] MEDS: ARIPiprazole 5 MG TAB PO SCH (21:03)
[2023-06-19] MEDS: lamoTRIgine 100 MG TAB PO SCH (21:03)
[2023-06-19] MEDS: LIOTHYRONINE SODIUM 25 MCG TAB PO SCH (21:55)
[2023-06-20] MEDS: METOPROLOL TARTRATE 25 MG TAB PO SCH ×3 (00:01→21:41)
[2023-06-20] MEDS: ACETAMINOPHEN 500 MG TAB PO SCH ×3 (05:56→22:27)
[2023-06-20] MEDS ORDERED: TRANEXAMIC ACID / 0.7% NACL 1,000 MG/100 ML BAG IV SCH (06:00)
[2023-06-20 06:52] LABS: Basophils # (auto) 0.05 K/uL (0.00-0.20); Basophils % (auto) 0.4 %; Eosinophils # (auto) 0.04 K/uL (0.00-0.50); Eosinophils % (auto) 0.3 %; Hematocrit (blood only) 39.1 % (42.0-52.0); Hemoglobin 12.6 g/dl (14.0-18.0); Immature Granulocytes # (auto) 0.05 K/uL (0.01-0.20); Immature Granulocytes % (auto) 0.4 %; Lymphocytes # (auto) 1.55 K/uL (1.20-3.40); Lymphocytes % (auto) 13.4 %; Mean Corpuscular Hemoglobin 28.6 pg (25.0-34.0); Mean Corpuscular Hgb Conc 32.2 g/dL (32.0-36.0); Mean Corpuscular Volume 88.9 fL (80.0-100.0); Mean Platelet Volume 9.8 fL (9.4-12.4); Monocytes # (auto) 0.96 K/uL (0.11-0.59); Monocytes % (auto) 8.3 %; Neutrophils # (auto) 8.88 K/uL (1.40-6.50); Neutrophils % (auto) 77.2 %; Platelet Count 283 K/uL (130-400); RDW Coefficient of Variation 13.5 % (11.5-14.5); RDW Standard Deviation 43.9 fL (36.4-46.3); White Blood Count 11.53 K/ul (4.8-10.8)
[2023-06-20] MEDS ORDERED: BUPIVACAINE/EPINEPHRINE 0.5% MPF 1:200,000 30 ML VIAL ONE (07:03)
[2023-06-20 07:08] LABS: BUN Creatinine Ratio 21.2 (10-20); Calcium 8.7 mg/dl (8.6-10.3); Creatinine Clr Calc Pharmacy 79.2 ml/min; Est GFR (African American) 92.2 ml/min; Est GFR (Non-African American) 79.6 ml/min; Potassium 4.6 mmol/L (3.5-5.1)
[2023-06-20] MEDS ORDERED: PROPOFOL IV EMULSION 10 MG/ML 20 ML VIAL IV ONE ×6 (07:10→09:19)
[2023-06-20] MEDS ORDERED: MIDAZOLAM HCL 1 MG/ML 2ML VIAL ONE (07:10)
[2023-06-20] MEDS ORDERED: fentaNYL citrate PF 100 MCG/2 ML VIAL ONE (07:10)
[2023-06-20] MEDS ORDERED: BUPIVACAINE 0.5 % 5 MG/1 ML PF 10ML VIAL ONE (07:17)
--- NOTE | 2023-06-20 07:19 | History & Physical Bridge Note ---
Date of Service June 20, 2023 History & Physical Bridge Note I have examined the patient, reviewed the History & Physical and in the interval since the performance of the History & Physical I have noted the following changes of clinical significance: no changes noted
[2023-06-20] MEDS ORDERED: ceFAZolin 2000MG 2,000 MG/15 ML SYR IV ONE (07:21)
[2023-06-20] MEDS ORDERED: KETAMINE HCL 10MG/ML SYR ONE (07:53)
[2023-06-20] MEDS ORDERED: ceFAZolin 330 MG/ML 1 GM VIAL ONE (08:06)
[2023-06-20] MEDS ORDERED: ONDANSETRON INJ 2 MG/ML 2 ML VIAL ONE (09:23)
--- NOTE | 2023-06-20 09:47 | Operative Report ---
PG Post Operative Report Pre & Post Diagnosis Operation Date: 06/20/23 08:30 Pre-Op Diagnosis: Left displaced femoral neck/hip fracture Post-Op Diagnosis: Left displaced femoral neck/hip fracture I identified the patient and participated in the time-out.: Yes Procedure Operation Date: 06/20/23 08:30 Actual Procedures p Left Total Hip Arthroplasty (Left) - Clyde Yang MD Surgeon Clyde Yang MD Clinic Mgr Giovanny Abbott PA-C Estimated Blood Loss 200 Findings Consistent with Post-Op Diagnosis Specimens Left femoral head sent for pathology Anesthesia Type Spinal MAC Complications none Disposition Accompanied Patient To Recovery: No Indications Patient is a 67-year-old gent with multiple medical comorbidities who sustained a fall 2 days ago. He stumbled over some books. He had cute onset of pain. He crawled to bed and lied in bed/the couch all night. Could not walk in the morning. Raad brought to emergency room x-rays were displaced femoral neck fracture. Treatment options were explained and discussed. Based on his age and bone structure we elected proceed with total hip arthroplasty. He is an independent ambulator and uses no assistance devices preoperatively. No history of hip pain preoperatively. Description of Procedure Operative implants consisted of: 1 DePuy [place] size 58 mm acetabular shell. 2. Ballinger eliminator. 3. 6.5 cancellous acetabular screws 1 at 35 mm in length and 120 mm length. 4. Highly cross-linked polyethylene liner with a 58 mm outer diameter and 36 mm inner diameter. 5. DePuy [place] size 11 KLA femoral stem. 6. +8.5/36 mm ceramic articular ball. 7. Dall-Miles cable x 1. The patient was taken the operating, identified, and placed on the operating table in the supine position but all contact areas were appropriately padded. IV antibiotics tried by anesthesia team. A spinal anesthetic was implemented. Patient was then placed on the OR table in the right lateral decubitus position. An axillary roll was placed. Distal Birkett position was used for positioning. The left hip and leg were then scrubbed with Hibiclens, prepped with ChloraPrep and draped in usual sterile fashion. Of note, the patient did get 1 g of TXA preoperatively. A posterolateral approach to the left hip was then performed through a curvilinear incision centered over the greater trochanter. Sharp dissection scalp through subcutaneous tissue down to level the IT band gluteal fascia but the IT band gluteal fascia incised longitudinally in line with skin incision. The underlying greater bursa was excised. There is quite a bit of hemorrhage in the back of his hip. The piriformis and external rotators along with the posterior hip joint capsule were then taken off the posterior aspect hip as a single layer. Great care was taken throughout the procedure protect the sciatic nerve at all times. Hip was internally rotated below the level of the fracture site. The femoral remaining femoral neck and head were then removed. The femur was retracted anteriorly. Attention drawn the acetabulum. The acetabular labrum was excised. The pulmonary fat was excised. Sequential reaming the acetabular was then performed beginning with size 45 and progressing up to 57. I reamed a little bit with a 58 reamer. We made sure we got rid of all the cartilage. A 58 mm Cleveland shell was then placed in about 40 degrees lateral opening and 20 degrees of anteversion. It was fixed with two 6.5 cancellous screws. Trial liner was placed. Attention drawn the femur. I first placed a Dall-Miles cable around the proximal femur just to avoid any fracture propagation if there was any. The osteotomy cut was made below the fracture but it is always difficult to be 100% certain. Therefore we prepped a prophylactic cable. I then used the [place] cutter to open the proximal femur followed by canal finder. We broached beginning with size 8 and progressing up to 11. Get excellent fit 11. We trialed the hip. The +5 articular ball was stable but soft tissue tension was lax. We elect to use the +8.5 articular ball. Soft tissue tension was still a bit lax but I did not want to lengthen him anymore. We elect place these implants. Nupathe all trial implants were removed. Ballinger muck hauler was placed. Highly cross-linked polyethylene liner was placed. A size 11 KLA femoral stem was impacted in position. +8.5/36 mm ce ramic articular ball was placed. Hip was located and once again found to be stable. Leg lengths seemed appropriate. The soft tissue tension was a little bit lax but acceptable. We elected to proceed with closing. The wounds irrigated cosigns pulsatile lavage solution. I did inject locally with 60 cc of half percent Marcaine with epinephrine. The posterior capsule and external rotators were then repaired through drill holes in the posterior trochanter with #2 Tycron suture. The IT band gluteal fascia then closed in 1 PDS suture in running fashion through the subcutaneous tissues then closed with 2 layers the deep layer #1 Vicryl suture and subcutaneous tissues with 2-0 Dexon suture in a buried interrupted fashion. Skin was closed skin juan a. Leg was then cleaned and dried and sterile dressing was Xeroform, 4 fours, ABD pad and foam tape was applied. The patient then transferred to the recovery in stable condition. Patient tolerated procedure well and there were no complications. Giovanny Abbott, my physician blood and plasma laboratory assistant, was present for the entire procedure. His assistance was essential and required for appropriate patient positioning, prepping and draping, surgical exposure, performing the technical details of the operation, placement the implants, closure of the wound, and placement of the sterile bandage. I attest to the content of the Intraoperative Record and any orders documented therein. Any exceptions are noted below.
[2023-06-20] MEDS ORDERED: HYDROmorphone INJ 1 MG/ML SYRINGE IV PRN (09:53)
[2023-06-20] MEDS ORDERED: ONDANSETRON INJ 2 MG/ML 2 ML VIAL IV PRN (09:53)
[2023-06-20] MEDS ORDERED: LABETALOL HCL IV 5 MG/ML 20ML IV PRN (09:53)
[2023-06-20] MEDS ORDERED: fentaNYL citrate PF 100 MCG/2 ML VIAL IV PRN (09:53)
[2023-06-20] MEDS ORDERED: ePHEDrine sulfate 50 MG/ML AMP IV PRN (09:53)
[2023-06-20] MEDS ORDERED: ATROPINE SULFATE 0.1 MG/ML 10ML SYR IV PRN (09:53)
[2023-06-20] MEDS ORDERED: PROMETHAZINE HCL 12.5 MG in SODIUM CHLORIDE 0.9% 50 ML IV PRN (09:53)
--- NOTE | 2023-06-20 10:18 | XRay Report ---
XR hip 1V LT w pelvis HISTORY: 67 years-old Male POST OP LEFT HIP left hip arthroplasty COMPARISON: CT 06/19/2023 TECHNIQUE: AP view of the pelvis with crosstable lateral view of the left hip FINDINGS: Satisfactory alignment of the left hip arthroplasty with cerclage wire. Lateral skin juan a are pres ent along with expected postoperative soft tissue swelling with deep tissue air. No acute fracture or unexpected opaque foreign body. IMPRESSION: Left hip arthroplasty with expected postoperative changes. ACT 112: Negative or not required by law. The above report was generated using voice recognition software. It may contain grammatical, syntax o r spelling errors. Electronically signed by: Bob Collazo M.D. 06/20/2023 10:17 AM
--- NOTE | 2023-06-20 10:19 | Anesthesiology Progress Note ---
Date of Service June 20, 2023 Anesthesia Post Procedure Vital Signs Vital Signs: Temp Pulse Pulse Pulse Resp BP BP 06/20/23 10:05 80 12 146/83 H 06/20/23 09:55 78 12 133/71 06/20/23 09:45 85 12 134/76 06/20/23 09:39 37.5 C 78 12 117/83 06/20/23 06:20 80 06/20/23 03:09 36.5 C 81 18 06/20/23 00:00 36.3 C L 89 16 06/20/23 00:00 89 06/19/23 23:00 84 06/19/23 19:00 36.7 C 105 H 16 06/19/23 16:48 101 H 06/19/23 15:07 36.7 C 101 H 22 06/19/23 15:06 06/19/23 14:13 99 H 20 190/117 H 06/19/23 13:42 107 H 175/104 H 06/19/23 13:34 107 H 06/19/23 13:30 105 H 25 H 175/104 H 06/19/23 13:08 122 H 184/112 H 06/19/23 13:03 184/112 H 06/19/23 13:00 187/106 H 06/19/23 12:33 229/114 H 06/19/23 12:00 115 H 30 H 188/110 H 06/19/23 11:35 120 H 25 H 192/114 H 06/19/23 11:00 118 H 26 H 06/19/23 10:30 121 H 25 H BP Pulse Ox O2 Del Method O2 Flow Rate 06/20/23 10:05 95 Room Air 06/20/23 09:55 98 Oxymask 8 06/20/23 09:45 96 Oxymask 8 06/20/23 09:39 98 Oxymask 8 06/20/23 06:20 154/63 H 06/20/23 03:09 170/88 H 93 Room Air 06/20/23 00:00 153/79 H 94 Room Air 06/20/23 00:00 162/88 H 06/19/23 23:00 06/19/23 19:00 164/81 H 95 Room Air 06/19/23 16:48 166/88 H 06/19/23 15:07 192/96 H 92 Room Air 06/19/23 15:06 Room Air 06/19/23 14:13 92 Room Air 06/19/23 13:42 06/19/23 13:34 06/19/23 13:30 90 06/19/23 13:08 06/19/23 13:03 93 06/19/23 13:00 90 06/19/23 12:33 91 06/19/23 12:00 91 06/19/23 11:35 94 06/19/23 11:00 93 06/19/23 10:30 92 Pain Intensity Left Hip: Pain Intensity: 2 Transfer of Care Handoff Completed per policy Notes Mental Status: alert / awake / arousable Patient Amnestic to Procedure: Yes Nausea / Vomiting: adequately controlled Pain: adequately controlled Airway Patency, RR, SpO2: stable & adequate BP & HR: stable & adequate Hydration State: stable & adequate Neuraxial Anesthesia: was administered and sensory block is resolving Anesthetic Complications: no major complications apparent
[2023-06-20] MEDS: INSULIN ASPART PER UNIT CHARGE SC SCH ×4 (11:02→21:42)
[2023-06-20] MEDS: lisinopril 40 MG TAB PO SCH (11:05)
[2023-06-20] MEDS: SODIUM CHLORIDE 0.9% 1,000 ML IV SCH ×2 (11:06→23:38)
--- NOTE | 2023-06-20 14:14 | Hospitalist Progress Note ---
Date of Service June 20, 2023 Assessment & Plan (1) Closed fracture of left hip: Plan: This is a 67 y/o male with DM2, HTN, prior CVA, dyslipidemia, depression, anxiety, and other history as outlined who presents to the ED today after a fall last night with resultant left hip pain. Work-up in the ED reveals a mildly displaced left femoral neck fracture. Pt was also noted to be markedly hypertensive and tachycardic. Further evaluation reveals no PE, no in traabdominal hemorrhage, no acute intracranial abnormality. COVID testing negative. Pt denies use of alcohol or other substances. He does not that he has not taken any of his routine meds since evening since he usually takes medications all together at night. He denies anginal symptoms. No recent changes in functional status prior to the fall. Last ECHO was in 2019 when he was admitted for CVA (results above). Outpatient PCP notes were reviewed - last A1c >1 year ago, BP in the office seems to run in the 140s. Pt has received labetalol 10 mg IV x 1 in the ED with improvement of BP from 229/114 to 184/112. - Admit to PCU - Consult orthopedics - ED provider spoke with ortho on-call who are tentatively planning for OR tomorrow PM if medically optimized. Will make pt NPO at [facility]. - Pain control - scheduled acetaminophen, IV morphine prn - Add Lopressor 25 mg BID due to persistent tachycardia/elevated BP, resume outpatient Lisinopril with first dose now - AM labs - CBC, BMP - Fall precautions -No prior cardiac history except high blood pressure -Has been ambulant at home without any cardiac symptoms -Blood pressure will be controlled prior to the surgery -There is no medical contraindication for proposed surgery Status post left total hip arthroplasty on 06/20/2023 Appreciate Ortho input and recommendation Further management will depend on Ortho PT OT evaluation Pain control Possible placed (2) Tachycardia: Plan: Unclear etiology - EKG with sinus rhythm, no atrial fib/flutter Beta-syed as above Rate is controlled (3) Hypertensive urgency: Plan: Suspect multifactorial due to missed medications, pain, and anxiety Blood pressure was noted to be significantly high in the emergency room and the systolic more than 200 Received intravenous labetalol 10 mg and it was improving Will start Lopressor 25 mg p.o. twice daily and give his p.m. medications lisinopril 40 mg now Will monitor the blood pressure as he may need more BP medications Blood pressure seems to be well-controlled and on the lower side at 112/64 (4) Type 2 diabetes mellitus: Plan: Check A1c in AM-pending Diabetic diet BSG ACHS Holding Metformin due to IV contrast today (5) GRIFFIN (generalized anxiety disorder): (6) Major depressive disorder without psychotic features: (7) Hyperlipidemia: Plan Pt seen and reviewed with attending physician, Dr. Arana. Plan of care discussed and as outlined above. Code Status: Full code DVT prophylaxis: SCDs for now pending OR tomorrow Await Ortho recommendation Admission and Anticipated Discharge Date Admission Date: June 19, 2023 Subjective 06/20/2023 The patient was seen and examined in telemetry unit He is a status post left total hip arthroplasty this morning Has been sleepy and complains of pain in the left hip Denies any shortness of breath, nausea and or vomit Review of Systems Review of Systems: All systems reviewed and are unremarkable except as noted below Physical Exam Physical Exam: Lying in bed comfortable Constitutional: well developed, well nourished, + ill appearing and + obese Eyes: PERRL, conjunctivae normal, anicteric sclerae ENMT: external ear and nose normal, oropharynx normal Neck: trachea midline, no thyromegaly Respiratory: no respiratory distress Auscultation: lungs clear to auscultation bilaterally Cardiovascular: Rate/Rhythm: regular rate and regular rhythm; not tachycardic Heart Sounds: normal S1 and normal S2; no murmur Extremities: no edema Gastrointestinal (Abdomen): Inspection/Auscultation: normal bowel sounds; abdomen not distended Percussion/Palpation: abdomen soft; abdomen nontender Musculoskeletal: No acute arthritis involving any of the joint Neurologic: normal touch/pain/proprioception and moves all extremities; no focal motor deficits Results & Data Results & Data Vital Signs (Past 12 Hours) Vital Signs Temp Pulse Pulse Pulse Resp BP BP 06/20/23 12:31 86 20 112/64 06/20/23 12:21 86 16 107/67 06/20/23 11:09 80 20 117/71 06/20/23 10:47 36.8 C 83 18 133/76 06/20/23 10:25 82 16 128/71 06/20/23 10:15 37.3 C 81 12 135/76 06/20/23 10:05 80 12 146/83 H 06/20/23 09:55 78 12 133/71 06/20/23 09:45 85 12 134/76 06/20/23 09:39 37.5 C 78 12 117/83 06/20/23 08:00 92 H 06/20/23 06:20 80 154/63 H 06/20/23 03:09 36.5 C 81 18 170/88 H Pulse Ox O2 Del Method O2 Flow Rate 06/20/23 12:31 92 Room Air 06/20/23 12:21 93 Room Air 06/20/23 11:09 92 Room Air 06/20/23 10:47 93 Room Air 06/20/23 10:25 92 Room Air 06/20/23 10:15 93 Room Air 06/20/23 10:05 95 Room Air 06/20/23 09:55 98 Oxymask 8 06/20/23 09:45 96 Oxymask 8 06/20/23 09:39 98 Oxymask 8 06/20/23 08:00 06/20/23 06:20 06/20/23 03:09 93 Room Air Laboratory Results Short CBC 06/20/23 Range/Units 06:12 WBC 11.53 H (4.8-10.8) K/ul Hgb 12.6 L (14.0-18.0) g/dl Hct 39.1 L (42.0-52.0) % Plt Count 283 (130-400) K/uL BMP 06/20/23 06:12 Sodium 138 Potassium 4.6 Chloride 108 H Carbon Dioxide 24 BUN 21 Creatinine 0.99 Glucose 132 H Calcium 8.7 Medications Administered Current Inpatient Medications Acetaminophen (Acetaminophen 500 Mg Tab) 1,000 mg PO Q8H DONNA Stop: 07/19/23 14:29 Last Admin: 06/20/23 05:56 Dose: 1,000 mg Aripiprazole (Aripiprazole 5 Mg Tab) 5 mg PO HS DONNA Stop: 07/19/23 20:59 Last Admin: 06/19/23 21:03 Dose: 5 mg Aspirin (Aspirin 81 Mg Ectab) 81 mg PO BID DONNA Stop: 07/20/23 20:59 Atorvastatin Calcium (Atorvastatin 40 Mg Tab) 40 mg PO HS DONNA Stop: 07/19/23 20:59 Last Admin: 06/19/23 21:02 Dose: 40 mg Atropine Sulfate (Atropine Sulfate 0.1 Mg/Ml 10ml Syr) 0.5 mg IV Q1M PRN PRN Reason: PACU Use-HR<40 &/or Bradycardi Stop: 06/20/23 17:53 Dextrose (Dextrose 50% 50 Ml Syringe) 25 - 50 ml IV UD PRN; Protocol PRN Reason: Hypoglycemia Protocol Stop: 07/19/23 14:03 Ephedrine Sulfate (Ephedrine Sulfate 50 Mg/Ml Amp) 5 mg IV Q5M PRN PRN Reason: PACU Use Only-SBP<90 mmHg Stop: 06/20/23 17:53 Fentanyl Citrate (Fentanyl Citrate Pf 100 Mcg/2 Ml Vial) 25 mcg IV Q5M PRN PRN Reason: PACU Use Only-Pain Stop: 06/20/23 17:53 Fluoxetine HCl (Fluoxetine Hcl 20 Mg Cap) 80 mg PO HS DONNA Stop: 07/19/23 20:59 Last Admin: 06/19/23 21:02 Dose: 80 mg Glucagon (Glucagon For Inj 1 Mg Vial) 1 mg SQ UD PRN; Protocol PRN Reason: Hypoglycemia Protocol Stop: 07/19/23 14:03 Glucose (Glucose 10 Tab/Tube) 4 - 8 tab PO UD PRN; Protocol PRN Reason: Hypoglycemia Treatment Stop: 07/19/23 14:03 Glucose (Glucose 40% Gel 15 Gm Tube) 15 - 30 gm PO UD PRN; Protocol PRN Reason: Hypoglycemia Protocol Stop: 07/19/23 14:03 Hydromorphone HCl (Hydromorphone Inj 1 Mg/Ml Syringe) 0.25 mg IV Q5M PRN PRN Reason: PACU Use Only-Pain Stop: 06/20/23 17:53 Tranexamic Acid (Tranexamic Acid / 0.7% Nacl) 1,000 mg in 100 mls @ 600 mls/hr IV PREOP DONNA Stop: 06/20/23 18:00 Last Infusion: 06/20/23 10:35 Dose: Infused Promethazine HCl 12.5 mg/ (Sodium Chloride) 50.5 mls @ 204 mls/hr IV ONCE PRN PRN Reason: PACU Use Only-Nausea/Vomiting Stop: 06/20/23 17:53 Cefazolin Sodium (Ancef 2000mg) 2,000 mg in 15 mls @ 3.75 mls/min IV Q8H [facility]; Protocol Stop: 06/20/23 23:48 Sodium Chloride (Nss) 1,000 mls @ 80 mls/hr IV .[id number] [facility] Stop: 06/21/23 11:46 Last Admin: 06/20/23 11:06 Dose: 80 mls/hr Insulin Aspart (Insulin Aspart Per Unit Charge) 0 units SC ACHS [facility] Stop: 07/19/23 16:29 Last Admin: 06/20/23 12:43 Dose: 3 units Labetalol HCl (Labetalol Hcl Iv 5 Mg/Ml 20ml) 5 mg IV Q5M PRN PRN Reason: PACU Use-SBP>160 or DBP>100 Stop: 06/20/23 17:54 Lamotrigine (Lamotrigine 100 Mg Tab) 100 mg PO [facility] Stop: 07/19/23 20:59 Last Admin: 06/19/23 21:03 Dose: 100 mg Liothyronine Sodium (Liothyronine Sodium 25 Mcg Tab) 25 mcg PO [facility] Stop: 07/19/23 20:59 Last Admin: 06/19/23 21:55 Dose: 25 mcg Lisinopril (Lisinopril 40 Mg Tab) 40 mg PO QAM [facility] Stop: 07/20/23 08:59 Last Admin: 06/20/23 11:05 Dose: 40 mg Metoprolol Tartrate (Metoprolol Tartrate 25 Mg Tab) 25 mg PO BID [facility] Stop: 07/19/23 14:29 Last Admin: 06/20/23 11:06 Dose: 25 mg Metoprolol Tartrate (Metoprolol Tartrate 1 Mg/Ml Vial) 5 mg IV Q6 PRN PRN Reason: Systolic >160 Stop: 07/19/23 17:59 Mirtazapine (Mirtazapine Soltab 15 Mg) 45 mg PO HS [facility] Stop: 07/19/23 20:59 Last Admin: 06/19/23 21:02 Dose: 45 mg Miscellaneous (Carbohydrates For Hypoglycemia ) 15 - 30 gm PO UD PRN PRN Reason: Hypoglycemia Protocol Stop: 07/19/23 14:03 Morphine Sulfate (Morphine Sulfate 4 Mg/Ml 1 Ml Carp\Vial) 4 mg IV Q4H PRN PRN Reason: Pain Stop: 07/03/23 14:02 Last Admin: 06/19/23 15:17 Dose: 4 mg Ondansetron HCl (Ondansetron Inj 2 Mg/Ml 2 Ml Vial) 4 mg IV ONCE PRN PRN Reason: PACU Use Only-Nausea/Vomiting Stop: 06/20/23 17:53 Polyethylene Glycol (Polyethylene (Miralax) 17 Gm Pack) 17 gm PO Q6 DONNA Stop: 07/22/23 11:59 (1) Closed fracture of left hip Encounter type: initial encounter Qualified Code(s): S72.002A - Fracture of unspecified part of neck of left femur, initial encounter for closed fracture (4) Type 2 diabetes mellitus Diabetes mellitus jail insulin use: without terminal superintendent use Diabetes mellitus complication status: without complication Qualified Code(s): E11.9 - Type 2 diabetes mellitus without complications (7) Hyperlipidemia Hyperlipidemia type: unspecified Qualified Code(s): E78.5 - Hyperlipidemia, unspecified
[2023-06-20] MEDS: ceFAZolin 2000MG 2,000 MG/15 ML SYR IV SCH ×2 (16:11→23:38)
[2023-06-20] MEDS: MoRPHine SULFATE 4 MG/ML 1 ML CARP\\VIAL IV PRN (17:52)
[2023-06-20] MEDS: lamoTRIgine 100 MG TAB PO SCH (21:40)
[2023-06-20] MEDS: MIRTAZAPINE SOLTAB 15 MG PO SCH (21:40)
[2023-06-20] MEDS: LIOTHYRONINE SODIUM 25 MCG TAB PO SCH (21:40)
[2023-06-20] MEDS: ATORVASTATIN 40 MG TAB PO SCH (21:41)
[2023-06-20] MEDS: FLUoxetine HCL 20 MG CAP PO SCH (21:41)
[2023-06-20] MEDS: ARIPiprazole 5 MG TAB PO SCH (21:41)
[2023-06-20] MEDS: ASPIRIN 81 MG ECTAB PO SCH (22:26)
[2023-06-21] MEDS: MoRPHine SULFATE 4 MG/ML 1 ML CARP\\VIAL IV PRN (05:42)
[2023-06-21] MEDS: ACETAMINOPHEN 500 MG TAB PO SCH ×3 (05:49→23:32)
[2023-06-21 06:52] LABS: Basophils # (auto) 0.02 K/uL (0.00-0.20); Basophils % (auto) 0.2 %; Hematocrit (blood only) 34.1 % (42.0-52.0); Hemoglobin 11.4 g/dl (14.0-18.0); Immature Granulocytes # (auto) 0.06 K/uL (0.01-0.20); Immature Granulocytes % (auto) 0.5 %; Lymphocytes # (auto) 1.16 K/uL (1.20-3.40); Lymphocytes % (auto) 8.8 %; Mean Corpuscular Hemoglobin 29.5 pg (25.0-34.0); Mean Corpuscular Hgb Conc 33.4 g/dL (32.0-36.0); Mean Corpuscular Volume 88.3 fL (80.0-100.0); Mean Platelet Volume 9.7 fL (9.4-12.4); Monocytes # (auto) 1.51 K/uL (0.11-0.59); Monocytes % (auto) 11.4 %; Neutrophils # (auto) 10.48 K/uL (1.40-6.50); Neutrophils % (auto) 79.1 %; Platelet Count 272 K/uL (130-400); RDW Coefficient of Variation 13.4 % (11.5-14.5); RDW Standard Deviation 43.5 fL (36.4-46.3); Red Blood Count 3.86 M/uL (4.70-6.10); White Blood Count 13.23 K/ul (4.8-10.8)
[2023-06-21 07:08] LABS: Estimated Average Glucose 151 mg/dl; Hemoglobin A1C 6.9 % (4.5-5.6)
[2023-06-21 07:14] LABS: BUN Creatinine Ratio 23.3 (10-20); Calcium 8.4 mg/dl (8.6-10.3); Creatinine Clr Calc Pharmacy 76.2 ml/min; Est GFR (African American) 87.9 ml/min; Est GFR (Non-African American) 75.9 ml/min; Potassium 4.6 mmol/L (3.5-5.1)
--- NOTE | 2023-06-21 07:20 | Surgery Progress Note ---
Date of Service June 21, 2023 Assessment & Plan (1) Closed fracture of left hip: Plan: 67-year-old gentleman postop day 1 from a left uncemented hip replacement nonfried displaced femoral neck fracture. Orthopedically is doing well. Pain is controlled. Hips located. He is neurologically intact. Plan: 1. DVT prophylaxis including thigh-high teds, SCDs, aspirin twice a day. 2. PT/OT. He can fully weight-bear as tolerated left hip. Does [place] hip precautions. 3. Pain control doing okay with current pain regimen. 4. Disposition he is orthopedically okay for discharge anytime medically stable. He lives by himself. He says he is can go and stay with his parents.registered nurse surgical services involved. I need to see him back somewhere between 2 and 3 weeks out from surgery date. Admission and Anticipated Discharge Date Admission Date: June 19, 2023 Subjective 67-year-old gentleman postop day 1 from a left total hip replacement done for displaced femoral neck fracture. He is doing pretty well. Describes some soreness in his hip. No new complaints. Is awake alert and oriented. Denies any chest pain or shortness of breath. Not feeling dizzy or lightheaded. Physical Exam Physical Exam: Physical exam shows a pleasant middle-age male. Lying bed looks pretty comfortable. Examination of left hip and leg reveal the leg to be well aligned. Dressings clean dry and intact. Thigh is soft and supple. He is neurolo gically intact he can dorsiflex and plantarflex his foot appropriately. Results & Data Vital Signs (Past 12 Hours) Vital Signs Temp Pulse Pulse Resp BP BP BP 06/21/23 02:36 36.8 C 89 18 126/76 06/20/23 22:53 37.1 C 97 H 18 178/97 H 06/20/23 22:00 103 H 06/20/23 20:05 91 H 168/90 H 06/20/23 19:54 36.9 C 96 H 24 183/97 H 06/20/23 19:50 96 H 183/97 H Pulse Ox O2 Del Method 06/21/23 02:36 96 Room Air 06/20/23 22:53 94 Room Air 06/20/23 22:00 06/20/23 20:05 06/20/23 19:54 96 Room Air 06/20/23 19:50 Laboratory Results Hemoglobin 11.4. Hematocrit 34.1. PG Care Time/CCT Total # of Minutes Spent Total Time Spent with Patient: Total time spent is greater than 50% in coordination of care (as documented) at patient's floor/unit and/or counseling patient: Coding Level of Care Code 54468 Post Operative Follow-Up Diagnoses Closed fracture of left hip S72.002A Encounter type: initial encounter (1) Closed fracture of left hip Encounter type: initial encounter Qualified Code(s): S72.002A - Fracture of unspecified part of neck of left femur, initial encounter for closed fracture
[2023-06-21] MEDS: INSULIN ASPART PER UNIT CHARGE SC SCH ×4 (07:59→21:09)
[2023-06-21] MEDS: lisinopril 40 MG TAB PO SCH (08:37)
[2023-06-21] MEDS: METOPROLOL TARTRATE 25 MG TAB PO SCH ×2 (08:37→21:07)
[2023-06-21] MEDS: ASPIRIN 81 MG ECTAB PO SCH ×2 (08:37→21:08)
--- NOTE | 2023-06-21 15:35 | Hospitalist Progress Note ---
Date of Service June 21, 2023 Assessment & Plan (1) Closed fracture of left hip: Plan: This is a 67 y/o male with DM2, HTN, prior CVA, dyslipidemia, depression, anxiety, and other history as outlined who presents to the ED today after a fall last night with resultant left hip pain. Work-up in the ED reveals a mildly displaced left femoral neck fracture. Pt was also noted to be markedly hypertensive and tachycardic. Further evaluation reveals no PE, no in traabdominal hemorrhage, no acute intracranial abnormality. COVID testing negative. Pt denies use of alcohol or other substances. He does not that he has not taken any of his routine meds since evening since he usually takes medications all together at night. He denies anginal symptoms. No recent changes in functional status prior to the fall. Last ECHO was in 2019 when he was admitted for CVA (results above). Outpatient PCP notes were reviewed - last A1c >1 year ago, BP in the office seems to run in the 140s. Pt has received labetalol 10 mg IV x 1 in the ED with improvement of BP from 229/114 to 184/112. - Admit to PCU - Consult orthopedics - ED provider spoke with ortho on-call who are tentatively planning for OR tomorrow PM if medically optimized. Will make pt NPO at [facility]. - Pain control - scheduled acetaminophen, IV morphine prn - Add Lopressor 25 mg BID due to persistent tachycardia/elevated BP, resume outpatient Lisinopril with first dose now - AM labs - CBC, BMP - Fall precautions -No prior cardiac history except high blood pressure -Has been ambulant at home without any cardiac symptoms -Blood pressure will be controlled prior to the surgery -There is no medical contraindication for proposed surgery Status post left total hip arthroplasty on 06/20/2023 Appreciate Ortho input and recommendation Further management will depend on Ortho PT OT evaluation Pain control Has been doing well with physical therapy Pain is reasonably controlled Will go to [facility] in a day or 2 (2) Tachycardia: Plan: Unclear etiology - EKG with sinus rhythm, no atrial fib/flutter Beta-syed as above Rate is controlled (3) Hypertensive urgency: Plan: Suspect multifactorial due to missed medications, pain, and anxiety Blood pressure was noted to be significantly high in the emergency room and the systolic more than 200 Received intravenous labetalol 10 mg and it was improving Will start Lopressor 25 mg p.o. twice daily and give his p.m. medications lisinopril 40 mg now Will monitor the blood pressure as he may need more BP medications Blood pressure seems to be well-controlled and on the lower side at 112/64 Blood pressure is minimally elevated today-continue current medication (4) Type 2 diabetes mellitus: Plan: Check A1c in AM-hemoglobin A1c 6.9 Diabetic diet BSG ACHS Holding Metformin due to IV contrast today (5) GRIFFIN (generalized anxiety disorder): (6) Major depressive disorder without psychotic features: (7) Hyperlipidemia: Plan Pt seen and reviewed with attending physician, Dr. Arana. Plan of care discussed and as outlined above. Code Status: Full code DVT prophylaxis: SCDs for now pending OR tomorrow Await Ortho recommendation Aspirin 81 mg twice daily will with a DVT prophylaxis Admission and Anticipated Discharge Date Admission Date: June 19, 2023 Subjective 06/20/2023 The patient was seen and examined in telemetry unit He is a status post left total hip arthroplasty this morning Has been sleepy and complains of pain in the left hip Denies any shortness of breath, nausea and or vomit 06/21/2023 The patient was seen and examined in telemetry unit He is a status post left hip arthroplasty and doing much better and getting physical therapy He will need rehab and will go to [facility] in a day or 2 Review of Systems Review of Systems: All systems reviewed and are unremarkable except as noted below Physical Exam Physical Exam: Sitting on a chair without any acute distress Constitutional: well developed, well nourished, + ill appearing and + obese Eyes: PERRL, conjunctivae normal, anicteric sclerae ENMT: external ear and nose normal, oropharynx normal Neck: trachea midline, no thyromegaly Respiratory: no respiratory distress Auscultation: lungs clear to auscultation bilaterally Cardiovascular: Rate/Rhythm: regular rate and regular rhythm; not tachycardic Heart Sounds: normal S1 and normal S2; no murmur Extremities: no edema Gastrointestinal (Abdomen): Inspection/Auscultation: normal bowel sounds; abdomen not distended Percussion/Palpation: abdomen soft; abdomen nontender Neurologic: normal touch/pain/proprioception and moves all extremities; no focal motor deficits Results & Data Results & Data Vital Signs (Past 12 Hours) Vital Signs Temp Pulse Pulse Resp BP Pulse Ox O2 Del Method 06/21/23 12:04 37 C 87 18 161/79 H 96 Room Air 06/21/23 07:56 85 06/21/23 07:33 36.9 C 85 18 149/89 H 94 Room Air Laboratory Results Short CBC 06/21/23 Range/Units 06:14 WBC 13.23 H (4.8-10.8) K/ul Hgb 11.4 L (14.0-18.0) g/dl Hct 34.1 L (42.0-52.0) % Plt Count 272 (130-400) K/uL BMP 06/21/23 06:14 Sodium 136 Potassium 4.6 Chloride 105 Carbon Dioxide 25 BUN 24 H Creatinine 1.03 Glucose 163 H Calcium 8.4 L Medications Administered Current Inpatient Medications Acetaminophen (Acetaminophen 500 Mg Tab) 1,000 mg PO Q8H DONNA Stop: 07/19/23 14:29 Last Admin: 06/21/23 14:42 Dose: 1,000 mg Aripiprazole (Aripiprazole 5 Mg Tab) 5 mg PO HS [facility]NA Stop: 07/19/23 20:59 Last Admin: 06/20/23 21:41 Dose: 5 mg Aspirin (Aspirin 81 Mg Ectab) 81 mg PO BID [facility] Stop: 07/20/23 20:59 Last Admin: 06/21/23 08:37 Dose: 81 mg Atorvastatin Calcium (Atorvastatin 40 Mg Tab) 40 mg PO HS [facility] Stop: 07/19/23 20:59 Last Admin: 06/20/23 21:41 Dose: 40 mg Dextrose (Dextrose 50% 50 Ml Syringe) 25 - 50 ml IV UD PRN; Protocol PRN Reason: Hypoglycemia Protocol Stop: 07/19/23 14:03 Fluoxetine HCl (Fluoxetine Hcl 20 Mg Cap) 80 mg PO HS [facility]NA Stop: 07/19/23 20:59 Last Admin: 06/20/23 21:41 Dose: 80 mg Glucagon (Glucagon For Inj 1 Mg Vial) 1 mg SQ UD PRN; Protocol PRN Reason: Hypoglycemia Protocol Stop: 07/19/23 14:03 Glucose (Glucose 10 Tab/Tube) 4 - 8 tab PO UD PRN; Protocol PRN Reason: Hypoglycemia Treatment Stop: 07/19/23 14:03 Glucose (Glucose 40% Gel 15 Gm Tube) 15 - 30 gm PO UD PRN; Protocol PRN Reason: Hypoglycemia Protocol Stop: 07/19/23 14:03 Insulin Aspart (Insulin Aspart Per Unit Charge) 0 units SC ACHS [facility] Stop: 07/19/23 16:29 Last Admin: 06/21/23 12:55 Dose: 2 units Lamotrigine (Lamotrigine 100 Mg Tab) 100 mg PO HS [facility] Stop: 07/19/23 20:59 Last Admin: 06/20/23 21:40 Dose: 100 mg Liothyronine Sodium (Liothyronine Sodium 25 Mcg Tab) 25 mcg PO HS [facility] Stop: 07/19/23 20:59 Last Admin: 06/20/23 21:40 Dose: 25 mcg Lisinopril (Lisinopril 40 Mg Tab) 40 mg PO QAM [facility] Stop: 07/20/23 08:59 Last Admin: 06/21/23 08:37 Dose: 40 mg Metoprolol Tartrate (Metoprolol Tartrate 25 Mg Tab) 25 mg PO BID [facility] Stop: 07/19/23 14:29 Last Admin: 06/21/23 08:37 Dose: 25 mg Metoprolol Tartrate (Metoprolol Tartrate 1 Mg/Ml Vial) 5 mg IV Q6 PRN PRN Reason: Systolic >160 Stop: 07/19/23 17:59 Last Admin: 06/20/23 19:50 Dose: 5 mg Mirtazapine (Mirtazapine Soltab 15 Mg) 45 mg PO [facility] Stop: 07/19/23 20:59 Last Admin: 06/20/23 21:40 Dose: 45 mg Miscellaneous (Carbohydrates For Hypoglycemia ) 15 - 30 gm PO UD PRN PRN Reason: Hypoglycemia Protocol Stop: 07/19/23 14:03 Morphine Sulfate (Morphine Sulfate 4 Mg/Ml 1 Ml Carp\Vial) 4 mg IV Q4H PRN PRN Reason: Pain Stop: 07/03/23 14:02 Last Admin: 06/21/23 05:42 Dose: 4 mg Polyethylene Glycol (Polyethylene (Miralax) 17 Gm Pack) 17 gm PO Q6 [facility] Stop: 07/22/23 11:59 (1) Closed fracture of left hip Encounter type: initial encounter Qualified Code(s): S72.002A - Fracture of unspecified part of neck of left femur, initial encounter for closed fracture (4) Type 2 diabetes mellitus Diabetes mellitus intermediate insulin use: without intermediate use Diabetes mellitus complication status: without complication Qualified Code(s): E11.9 - Type 2 diabetes mellitus without complications (7) Hyperlipidemia Hyperlipidemia type: unspecified Qualified Code(s): E78.5 - Hyperlipidemia, unspecified
[2023-06-21] MEDS: LIOTHYRONINE SODIUM 25 MCG TAB PO SCH (21:06)
[2023-06-21] MEDS: ARIPiprazole 5 MG TAB PO SCH (21:07)
[2023-06-21] MEDS: MIRTAZAPINE SOLTAB 15 MG PO SCH (21:07)
[2023-06-21] MEDS: lamoTRIgine 100 MG TAB PO SCH (21:07)
[2023-06-21] MEDS: ATORVASTATIN 40 MG TAB PO SCH (21:08)
[2023-06-21] MEDS: FLUoxetine HCL 20 MG CAP PO SCH (21:08)
[2023-06-22] MEDS: ACETAMINOPHEN 500 MG TAB PO SCH ×3 (06:34→23:01)
[2023-06-22] MEDS: INSULIN ASPART PER UNIT CHARGE SC SCH ×4 (08:16→19:35)
[2023-06-22] MEDS: lisinopril 40 MG TAB PO SCH (08:17)
[2023-06-22] MEDS: METOPROLOL TARTRATE 25 MG TAB PO SCH (08:17)
[2023-06-22] MEDS: ASPIRIN 81 MG ECTAB PO SCH ×2 (08:17→19:38)
[2023-06-22] MEDS: METOPROLOL TARTRATE 50 MG TAB PO SCH ×2 (09:56→19:42)
[2023-06-22] MEDS: CYCLOBENZAPRINE HCL 5 MG TAB PO PRN ×2 (11:29→21:13)
--- NOTE | 2023-06-22 11:33 | Surgery Progress Note ---
Date of Service June 22, 2023 Assessment & Plan (1) Closed fracture of left hip: Plan: 67-year-old gentleman with multiple medical comorbidities postop day 2 from a left total hip replacement done for displaced femoral neck fracture. Orthopedically is doing well. Pain is controlled. Hips located. He is neurologically intact. Plan: 1. DVT prophylaxis including thigh-high teds, SCDs, baby aspirin twice a day for 6 weeks. 2. PT OT. He can fully weight-bear as tolerated. He does Need to obey hip precautions. 3. Pain control doing well with current pain regimen. 4. Medical management as per the medicine service. 5. Disposition he is orthopedically okay for discharge anytime medically stable. Sounds like he will likely go to a longterm facility or rehab. I need to see him back 2 to 3 weeks out from surgery date. Any orthopedic que stions can be directly [phone] Admission and Anticipated Discharge Date Admission Date: June 19, 2023 Subjective 67-year-old gentleman postop day 2 from a left total hip replacement done for displaced femoral neck fracture. He is doing pretty well. Actually had more pain in his back and right buttock area than the left hip. Denies any chest pain or shortness of breath. Physical Exam Physical Exam: Physical examination was a pleasant middle-age male. He is sitting up in his bedside chair looks pretty comfortable. Examination of left leg reveals the dressing be clean dry and intact. Leg lengths are equal. His thigh is soft and supple. He can dorsiflex and plantarflex his foot appropriately. He is neurologically intact. Results & Data Vital Signs (Past 12 Hours) Vital Signs Temp Pulse Resp BP Pulse Ox O2 Del Method 06/22/23 07:35 37.4 C 99 H 18 187/52 H 94 Room Air 06/22/23 02:26 36.6 C 80 16 155/73 H 97 Room Air PG Care Time/CCT Total # of Minutes Spent Total Time Spent with Patient: Total time spent is greater than 50% in coordination of care (as documented) at patient's floor/unit and/or counseling patient: Coding Level of Care Code 84961 Post Operative Follow-Up Diagnoses Closed fracture of left hip S72.002A Encounter type: initial encounter (1) Closed fracture of left hip Encounter type: initial encounter Qualified Code(s): S72.002A - Fracture of unspecified part of neck of left femur, initial encounter for closed fracture
[2023-06-22] MEDS: POLYETHYLENE (MIRALAX) 17 GM PACK PO SCH ×3 (12:01→23:01)
--- NOTE | 2023-06-22 15:18 | Hospitalist Progress Note ---
Date of Service June 22, 2023 Assessment & Plan (1) Closed fracture of left hip: Plan: This is a 67 y/o male with DM2, HTN, prior CVA, dyslipidemia, depression, anxiety, and other history as outlined who presents to the ED today after a fall last night with resultant left hip pain. Work-up in the ED reveals a mildly displaced left femoral neck fracture. Pt was also noted to be markedly hypertensive and tachycardic. Further evaluation reveals no PE, no in traabdominal hemorrhage, no acute intracranial abnormality. COVID testing negative. Pt denies use of alcohol or other substances. He does not that he has not taken any of his routine meds since evening since he usually takes medications all together at night. He denies anginal symptoms. No recent changes in functional status prior to the fall. Last ECHO was in 2019 when he was admitted for CVA (results above). Outpatient PCP notes were reviewed - last A1c >1 year ago, BP in the office seems to run in the 140s. Pt has received labetalol 10 mg IV x 1 in the ED with improvement of BP from 229/114 to 184/112. - Admit to PCU - Consult orthopedics - ED provider spoke with ortho on-call who are tentatively planning for OR tomorrow PM if medically optimized. Will make pt NPO at [facility]. - Pain control - scheduled acetaminophen, IV morphine prn - Add Lopressor 25 mg BID due to persistent tachycardia/elevated BP, resume outpatient Lisinopril with first dose now - AM labs - CBC, BMP - Fall precautions -No prior cardiac history except high blood pressure -Has been ambulant at home without any cardiac symptoms -Blood pressure will be controlled prior to the surgery -There is no medical contraindication for proposed surgery Status post left total hip arthroplasty on 06/20/2023 Appreciate Ortho input and recommendation Further management will depend on Ortho PT OT evaluation Pain control Has been doing well with physical therapy Pain is reasonably controlled Clinically much better and will be given as needed baclofen for muscle spasm Awaiting to go to [facility] (2) Tachycardia: Plan: Unclear etiology - EKG with sinus rhythm, no atrial fib/flutter Beta-syed as above Rate is controlled (3) Hypertensive urgency: Plan: Suspect multifactorial due to missed medications, pain, and anxiety Blood pressure was noted to be significantly high in the emergency room and the systolic more than 200 Received intravenous labetalol 10 mg and it was improving Will start Lopressor 25 mg p.o. twice daily and give his p.m. medications lisinopril 40 mg now Will monitor the blood pressure as he may need more BP medications Blood pressure seems to be well-controlled and on the lower side at 112/64 Blood pressure is minimally elevated today-continue current medication Blood pressure seems to be well-controlled (4) Type 2 diabetes mellitus: Plan: Check A1c in AM-hemoglobin A1c 6.9 Diabetic diet BSG ACHS Holding Metformin due to IV contrast today (5) GRIFFIN (generalized anxiety disorder): (6) Major depressive disorder without psychotic features: (7) Hyperlipidemia: Plan Pt seen and reviewed with attending physician, Dr. Arana. Plan of care discussed and as outlined above. Code Status: Full code DVT prophylaxis: SCDs for now pending OR tomorrow Await Ortho recommendation Aspirin 81 mg twice daily will with a DVT prophylaxis Admission and Anticipated Discharge Date Admission Date: June 19, 2023 Subjective 06/20/2023 The patient was seen and examined in telemetry unit He is a status post left total hip arthroplasty this morning Has been sleepy and complains of pain in the left hip Denies any shortness of breath, nausea and or vomit 06/21/2023 The patient was seen and examined in telemetry unit He is a status post left hip arthroplasty and doing much better and getting physical therapy He will need rehab and will go to [facility] in a day or 2 06/22/2023 The patient was seen and examined in telemetry unit He has been complaining of muscle spasm Denies any other significant symptoms Awaiting for approval to go to [facility] Review of Systems Review of Systems: All systems reviewed and are unremarkable except as noted below Physical Exam Physical Exam: Sitting on a chair without any acute distress Constitutional: well developed, well nourished, + ill appearing and + obese Eyes: PERRL, conjunctivae normal, anicteric sclerae ENMT: external ear and nose normal, oropharynx normal Neck: trachea midline, no thyromegaly Respiratory: no respiratory distress Auscultation: lungs clear to auscultation bilaterally Cardiovascular: Rate/Rhythm: regular rate and regular rhythm; not tachycardic Heart Sounds: normal S1 and normal S2; no murmur Extremities: no edema Gastrointestinal (Abdomen): Inspection/Auscultation: normal bowel sounds; abdomen not distended Percussion/Palpation: abdomen soft; abdomen nontender Neurologic: normal touch/pain/proprioception and moves all extremities; no focal motor deficits Results & Data Results & Data Vital Signs (Past 12 Hours) Vital Signs Temp Pulse Pulse Resp BP Pulse Ox O2 Del Method 06/22/23 11:45 37.0 C 83 18 131/75 95 Room Air 06/22/23 08:00 90 06/22/23 07:35 37.4 C 99 H 18 187/52 H 94 Room Air Medications Administered Current Inpatient Medications Acetaminophen (Acetaminophen 500 Mg Tab) 1,000 mg PO Q8H [facility] Stop: 07/19/23 14:29 Last Admin: 06/22/23 13:52 Dose: 1,000 mg Aripiprazole (Aripiprazole 5 Mg Tab) 5 mg PO HS [facility] Stop: 07/19/23 20:59 Last Admin: 06/21/23 21:07 Dose: 5 mg Aspirin (Aspirin 81 Mg Ectab) 81 mg PO BID [facility] Stop: 07/20/23 20:59 Last Admin: 06/22/23 08:17 Dose: 81 mg Atorvastatin Calcium (Atorvastatin 40 Mg Tab) 40 mg PO HS [facility] Stop: 07/19/23 20:59 Last Admin: 06/21/23 21:08 Dose: 40 mg Cyclobenzaprine HCl (Cyclobenzaprine Hcl 5 Mg Tab) 5 mg PO TID PRN PRN Reason: Muscle Spasm Stop: 07/22/23 13:59 Last Admin: 06/22/23 11:29 Dose: 5 mg Dextrose (Dextrose 50% 50 Ml Syringe) 25 - 50 ml IV UD PRN; Protocol PRN Reason: Hypoglycemia Protocol Stop: 07/19/23 14:03 Fluoxetine HCl (Fluoxetine Hcl 20 Mg Cap) 80 mg PO HS [facility] Stop: 07/19/23 20:59 Last Admin: 06/21/23 21:08 Dose: 80 mg Glucagon (Glucagon For Inj 1 Mg Vial) 1 mg SQ UD PRN; Protocol PRN Reason: Hypoglycemia Protocol Stop: 07/19/23 14:03 Glucose (Glucose 10 Tab/Tube) 4 - 8 tab PO UD PRN; Protocol PRN Reason: Hypoglycemia Treatment Stop: 07/19/23 14:03 Glucose (Glucose 40% Gel 15 Gm Tube) 15 - 30 gm PO UD PRN; Protocol PRN Reason: Hypoglycemia Protocol Stop: 07/19/23 14:03 Insulin Aspart (Insulin Aspart Per Unit Charge) 0 units SC ACHS [facility] Stop: 07/19/23 16:29 Last Admin: 06/22/23 12:00 Dose: 3 units Lamotrigine (Lamotrigine 100 Mg Tab) 100 mg PO [facility] Stop: 07/19/23 20:59 Last Admin: 06/21/23 21:07 Dose: 100 mg Liothyronine Sodium (Liothyronine Sodium 25 Mcg Tab) 25 mcg PO [facility] Stop: 07/19/23 20:59 Last Admin: 06/21/23 21:06 Dose: 25 mcg Lisinopril (Lisinopril 40 Mg Tab) [facility] Stop: 07/20/23 08:59 Last Admin: 06/22/23 08:17 Dose: 40 mg Metoprolol Tartrate (Metoprolol Tartrate 1 Mg/Ml Vial) 5 mg IV Q6 PRN PRN Reason: Systolic >160 Stop: 07/19/23 17:59 Last Admin: 06/20/23 19:50 Dose: 5 mg Metoprolol Tartrate (Metoprolol Tartrate 50 Mg Tab) 50 mg PO BID [facility] Stop: 07/22/23 08:59 Last Admin: 06/22/23 09:56 Dose: 25 mg Mirtazapine (Mirtazapine Soltab 15 Mg) 45 mg PO [facility] Stop: 07/19/23 20:59 Last Admin: 06/21/23 21:07 Dose: 45 mg Miscellaneous (Carbohydrates For Hypoglycemia ) 15 - 30 gm PO UD PRN PRN Reason: Hypoglycemia Protocol Stop: 07/19/23 14:03 Morphine Sulfate (Morphine Sulfate 4 Mg/Ml 1 Ml Carp\Vial) 4 mg IV Q4H PRN PRN Reason: Pain Stop: 07/03/23 14:02 Last Admin: 06/21/23 05:42 Dose: 4 mg Polyethylene Glycol (Polyethylene (Miralax) 17 Gm Pack) 17 gm PO Q6 [facility] Stop: 07/22/23 11:59 Last Admin: 06/22/23 12:01 Dose: 17 gm (1) Closed fracture of left hip Encounter type: initial encounter Qualified Code(s): S72.002A - Fracture of unspecified part of neck of left femur, initial encounter for closed fracture (4) Type 2 diabetes mellitus Diabetes mellitus complication status: without complication 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
[2023-06-22] MEDS: LIOTHYRONINE SODIUM 25 MCG TAB PO SCH (19:38)
[2023-06-22] MEDS: lamoTRIgine 100 MG TAB PO SCH (19:38)
[2023-06-22] MEDS: FLUoxetine HCL 20 MG CAP PO SCH (19:38)
[2023-06-22] MEDS: ARIPiprazole 5 MG TAB PO SCH (19:39)
[2023-06-22] MEDS: ATORVASTATIN 40 MG TAB PO SCH (19:39)
[2023-06-22] MEDS: MIRTAZAPINE SOLTAB 15 MG PO SCH (19:40)
[2023-06-23] MEDS: POLYETHYLENE (MIRALAX) 17 GM PACK PO SCH ×3 (05:56→17:03)
[2023-06-23] MEDS: ACETAMINOPHEN 500 MG TAB PO SCH ×3 (05:56→22:47)
[2023-06-23] MEDS: METOPROLOL TARTRATE 50 MG TAB PO SCH ×2 (08:07→20:30)
[2023-06-23] MEDS: lisinopril 40 MG TAB PO SCH (08:07)
[2023-06-23] MEDS: ASPIRIN 81 MG ECTAB PO SCH ×2 (08:07→20:29)
[2023-06-23] MEDS: INSULIN ASPART PER UNIT CHARGE SC SCH ×4 (08:07→20:31)
[2023-06-23] MEDS: CYCLOBENZAPRINE HCL 5 MG TAB PO PRN ×2 (09:02→22:48)
--- NOTE | 2023-06-23 13:53 | Surgery Progress Note ---
Date of Service June 23, 2023 Assessment & Plan (1) Closed fracture of left hip: Plan: 67-year-old gentleman now postop day 3 for a total hip replacement done for femoral neck fracture. Orthopedically is doing well. Pain is controlled. Hips located. He is neurologically intact. Just wait for placement. Plan: 1. DVT prophylaxis including thigh-high teds, SCDs, baby aspirin twice a day for 6 weeks. 2. PT/OT. He can weight-bear as tolerated. Needs to obey hip precautions. 3. Pain control doing okay with current pain regimen. 4. Medical management as per the medicine service. 5. Disposition he is orthopedically okay for discharge anytime medically stable and arrangements can be made. I need to see him back 2 to 3 weeks out from surgery date. Any orthopedic questions can recommend [phone] Admission and Anticipated Discharge Date Admission Date: June 19, 2023 Subjective 67-year-old gentleman postop day 3 from a left total hip replacement done for displaced femoral neck fracture. He is doing better today. He was having some right buttock pain yesterday which seemed to improve. Left leg is doing well. No complaints. No chest pain or shortness of breath. Not feeling dizzy or lightheaded. Physical Exam Physical Exam: Physical exam shows a pleasant middle-age male. Lying bed looks pretty comfortable. Examination left leg reveals the dressing to be clean dry and intact. Leg lengths are equal. Thigh is soft and supple. He is neurologically intact. Results & Data Vital Signs (Past 12 Hours) Vital Signs Temp Pulse Pulse Resp BP Pulse Ox O2 Del Method 06/23/23 11:05 36.9 C 81 18 141/83 H 97 Room Air 06/23/23 08:00 90 06/23/23 07:45 37.6 C H 88 18 157/79 H 95 Room Air 06/23/23 04:13 37.3 C 87 20 166/84 H 94 Room Air PG Care Time/CCT Total # of Minutes Spent Total Time Spent with Patient: Total time spent is greater than 50% in coordination of care (as documented) at patient's floor/unit and/or counseling patient: Coding Level of Care Code 50192 Post Operative Follow-Up Diagnoses Closed fracture of left hip S72.002A Encounter type: initial encounter (1) Closed fracture of left hip Encounter type: initial encounter Qualified Code(s): S72.002A - Fracture of unspecified part of neck of left femur, initial encounter for closed fracture
[2023-06-23] MEDS ORDERED: LABETALOL HCL IV 5 MG/ML 20ML IV PRN (17:02)
[2023-06-23] MEDS: ATORVASTATIN 40 MG TAB PO SCH (20:29)
[2023-06-23] MEDS: ARIPiprazole 5 MG TAB PO SCH (20:29)
--- NOTE | 2023-06-23 20:29 | Hospitalist Progress Note ---
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 Work-up in the ED reveals a mildly displaced left femoral neck fracture. he is being managed for the following: Closed fracture of left hip: Status post left total hip arthroplasty on 06/20/2023 Appreciate Ortho input and recommendation On baby aspirin and scds for DVT px PT OT evaluation, awaiting placement. Pain controlled, doing better. (2) Tachycardia: Plan: Unclear etiology - EKG with sinus rhythm, no atrial fib/flutter c/w beta syed Rate is controlled (3) Hypertensive urgency: Plan: Suspect multifactorial due to missed medications, pain, and anxiety at the time of presentation. Better controlled, still higher side. c/w lisinopril and metoprolol, titrate bp meds as appropriate (4) Type 2 diabetes mellitus: Plan: Check A1c in AM-hemoglobin A1c 6.9 Diabetic diet BSG ACHS SSI (5) GRIFFIN (generalized anxiety disorder): (6) Major depressive disorder without psychotic features: (7) Hyperlipidemia: Plan Full code DVT prophylaxis: scd and baby aspirin bid. Dispo: awaiting placement. Admission and Anticipated Discharge Date Admission Date: June 19, 2023 Subjective 67-year-old gentleman postop day 3 from a left total hip replacement done for displaced femoral neck fracture. He is doing better today, reports pain under control at operative site. Eating ok and moving bowels ok per pt. No complaints. No chest pain or shortness of breath. Not feeling dizzy or lightheaded. Physical Exam Physical Exam: GENERAL: Alert and oriented x3. NAD, on RA. HEENT: No pallor, no icterus. Pupils equal, round and reactive to light. Oral mucosa moist. NECK: No JVD, no neck masses. HEART: S1 and S2 heard. Regular rate and rhythm. No murmur, no gallop. RESPIRATORY SYSTEM: Normal AP diameter. No accessory muscle use. No wheezing, no crackles. ABDOMEN: Soft, bowel sounds present, nontender, no distention. CENTRAL NERVOUS SYSTEM: No facial droop. Speech is clear. Obeys simple commands. Moves extremities. EXTREMITIES: No edema, no erythema seen. Left hip dressing c/d/i Results & Data Results & Data Vital Signs (Past 12 Hours) Vital Signs Temp Pulse Pulse Resp BP BP BP 06/23/23 19:51 37.2 C 85 20 161/84 H 06/23/23 18:06 89 154/67 H 06/23/23 17:31 72 167/84 H 06/23/23 16:57 176/97 H 06/23/23 16:12 90 06/23/23 16:10 36.9 C 86 18 170/84 H 06/23/23 11:05 36.9 C 81 18 141/83 H Pulse Ox O2 Del Method 06/23/23 19:51 96 Room Air 06/23/23 18:06 06/23/23 17:31 06/23/23 16:57 06/23/23 16:12 06/23/23 16:10 96 Room Air 06/23/23 11:05 97 Room Air (1) Closed fracture of left hip Encounter type: initial encounter Qualified Code(s): S72.002A - Fracture of unspecified part of neck of left femur, initial encounter for closed fracture (4) Type 2 diabetes mellitus 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
[2023-06-23] MEDS: LIOTHYRONINE SODIUM 25 MCG TAB PO SCH (20:30)
[2023-06-23] MEDS: MIRTAZAPINE SOLTAB 15 MG PO SCH (20:30)
[2023-06-23] MEDS: FLUoxetine HCL 20 MG CAP PO SCH (20:30)
[2023-06-23] MEDS: lamoTRIgine 100 MG TAB PO SCH (20:30)
[2023-06-24] MEDS: POLYETHYLENE (MIRALAX) 17 GM PACK PO SCH ×3 (00:08→11:40)
[2023-06-24] MEDS: ACETAMINOPHEN 500 MG TAB PO SCH ×2 (06:18→14:45)
--- NOTE | 2023-06-24 07:35 | Surgery Progress Note ---
Date of Service June 24, 2023 Assessment & Plan (1) Closed fracture of left hip: Plan: 67-year-old gentleman postop day 4 from a left hip replacement done for fracture. Orthopedically is doing well. Pain is controlled. Hips located. He is neurologically intact. Plan: 1. DVT prophylaxis including thigh-high teds, SCDs, baby aspirin twice a day for 6 weeks. 2. PT/OT. He can fully weight-bear as tolerated. Needs to obey hip precautions. 3. Pain control doing okay with current pain regimen. 4. Medical management as per the medicine service. 5. Disposition waiting to hear for rehab placement. He is hoping to go to rehab. Alternative is to go to his parents house to stay. I need to see him back 2 to 3 weeks out from surgery date. Any orthopedic questions can be directed at [phone] Admission and Anticipated Discharge Date Admission Date: June 19, 2023 Subjective 67-year-old gentleman postop day 4 from a left total hip replacement done for fracture. He is doing well. Hip pain is very manageable. Just waiting for placement. Physical Exam Physical Exam: Physical exam shows a pleasant middle-age male. Lying bed this morning looks pretty comfortable. Examination left hip reveals the dressing be clean dry and intact. Thigh is soft and supple. Hips located. He is neurologically intact. Results & Data Vital Signs (Past 12 Hours) Vital Signs Temp Pulse Resp BP BP Pulse Ox O2 Del Method 06/24/23 07:27 37.2 C 82 18 147/85 H 94 Room Air 06/24/23 03:44 36.9 C 72 18 167/82 H 95 Room Air 06/23/23 23:24 37.6 C H 80 18 165/77 H 94 Room Air 06/23/23 19:51 37.2 C 85 20 161/84 H 96 Room Air PG Care Time/CCT Total # of Minutes Spent Total Time Spent with Patient: Total time spent is greater than 50% in coordination of care (as documented) at patient's floor/unit and/or counseling patient: Coding Level of Care Code 19708 Post Operative Follow-Up Diagnoses Closed fracture of left hip S72.002A Encounter type: initial encounter (1) Closed fracture of left hip Encounter type: initial encounter Qualified Code(s): S72.002A - Fracture of unspecified part of neck of left femur, initial encounter for closed fracture
[2023-06-24] MEDS: INSULIN ASPART PER UNIT CHARGE SC SCH ×4 (07:50→20:21)
[2023-06-24] MEDS: ASPIRIN 81 MG ECTAB PO SCH ×2 (07:51→20:13)
[2023-06-24] MEDS: METOPROLOL TARTRATE 50 MG TAB PO SCH ×2 (07:51→20:15)
[2023-06-24] MEDS: lisinopril 40 MG TAB PO SCH (07:51)
[2023-06-24] MEDS: CYCLOBENZAPRINE HCL 5 MG TAB PO PRN (11:40)
--- NOTE | 2023-06-24 15:29 | Hospitalist Progress Note ---
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 Work-up in the ED reveals a mildly displaced left femoral neck fracture. he is being managed for the following: Closed fracture of left hip: Status post left total hip arthroplasty on 06/20/2023 Appreciate Ortho input and recommendation On baby aspirin and scds for DVT px PT OT evaluation, awaiting placement. Pain controlled, doing better. (2) Tachycardia: Plan: Unclear etiology - EKG with sinus rhythm, no atrial fib/flutter c/w beta syed Rate is controlled (3) Hypertensive urgency: Plan: Suspect multifactorial due to missed medications, pain, and anxiety at the time of presentation. Better controlled, still higher side. c/w lisinopril and metoprolol, titrate bp meds as appropriate (4) Type 2 diabetes mellitus: Plan: Check A1c in AM-hemoglobin A1c 6.9 Diabetic diet BSG ACHS SSI (5) GRIFFIN (generalized anxiety disorder): (6) Major depressive disorder without psychotic features: (7) Hyperlipidemia: Plan Full code DVT prophylaxis: scd and baby aspirin bid. Dispo: awaiting placement. Admission and Anticipated Discharge Date Admission Date: June 19, 2023 Subjective 67-year-old gentleman postop day 4 from left total hip replacement done for displaced femoral neck fracture. He is doing better today, reports pain under control at operative site. Eating ok and moving bowels ok per pt. No complaints. No chest pain or shortness of breath. Not feeling dizzy or lightheaded. Physical Exam Physical Exam: GENERAL: Alert and oriented x3. NAD, on RA. HEENT: No pallor, no icterus. Pupils equal, round and reactive to light. Oral mucosa moist. NECK: No JVD, no neck masses. HEART: S1 and S2 heard. Regular rate and rhythm. No murmur, no gallop. RESPIRATORY SYSTEM: Normal AP diameter. No accessory muscle use. No wheezing, no crackles. ABDOMEN: Soft, bowel sounds present, nontender, no distention. CENTRAL NERVOUS SYSTEM: No facial droop. Speech is clear. Obeys simple commands. Moves extremities. EXTREMITIES: No edema, no erythema seen. Left hip dressing c/d/i Results & Data Results & Data Vital Signs (Past 12 Hours) Vital Signs Temp Pulse Pulse Resp BP Pulse Ox O2 Del Method 06/24/23 11:26 36.6 C 81 18 156/80 H 95 Room Air 06/24/23 08:00 78 06/24/23 07:27 37.2 C 82 18 147/85 H 94 Room Air 06/24/23 03:44 36.9 C 72 18 167/82 H 95 Room Air (1) Closed fracture of left hip Encounter type: initial encounter Qualified Code(s): S72.002A - Fracture of unspecified part of neck of left femur, initial encounter for closed fracture (4) Type 2 diabetes mellitus Diabetes mellitus director script insulin use: without director script use Diabetes mellitus complication status: without complication Qualified Code(s): E11.9 - Type 2 diabetes mellitus without complications (7) Hyperlipidemia Hyperlipidemia type: unspecified Qualified Code(s): E78.5 - Hyperlipidemia, unspecified
[2023-06-24] MEDS: ARIPiprazole 5 MG TAB PO SCH (20:13)
[2023-06-24] MEDS: FLUoxetine HCL 20 MG CAP PO SCH (20:14)
[2023-06-24] MEDS: lamoTRIgine 100 MG TAB PO SCH (20:14)
[2023-06-24] MEDS: LIOTHYRONINE SODIUM 25 MCG TAB PO SCH (20:14)
[2023-06-24] MEDS: ATORVASTATIN 40 MG TAB PO SCH (20:14)
[2023-06-24] MEDS: MIRTAZAPINE SOLTAB 15 MG PO SCH (20:15)
[2023-06-25] MEDS: CYCLOBENZAPRINE HCL 5 MG TAB PO PRN ×3 (00:02→22:54)
[2023-06-25] MEDS: ACETAMINOPHEN 500 MG TAB PO SCH ×4 (00:02→22:54)
[2023-06-25] MEDS: MoRPHine SULFATE 4 MG/ML 1 ML CARP\\VIAL IV PRN (06:09)
[2023-06-25] MEDS: METOPROLOL TARTRATE 50 MG TAB PO SCH (08:20)
[2023-06-25] MEDS: lisinopril 40 MG TAB PO SCH (08:20)
[2023-06-25] MEDS: ASPIRIN 81 MG ECTAB PO SCH ×2 (08:20→20:45)
[2023-06-25] MEDS: INSULIN ASPART PER UNIT CHARGE SC SCH ×4 (08:20→20:44)
--- NOTE | 2023-06-25 13:42 | Hospitalist Progress Note ---
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 Work-up in the ED reveals a mildly displaced left femoral neck fracture. he is being managed for the following: Closed fracture of left hip: Status post left total hip arthroplasty on 06/20/2023 Appreciate Ortho input and recommendation On baby aspirin and scds for DVT px PT OT evaluation, awaiting placement. Pain controlled, doing better. (2) Tachycardia: Plan: Unclear etiology - EKG with sinus rhythm, no atrial fib/flutter c/w beta syed Rate is controlled (3) Hypertensive urgency: Plan: Suspect multifactorial due to missed medications, pain, and anxiety at the time of presentation. Better controlled, still higher side. c/w lisinopril and metoprolol changed to coreg for better bp control, will follow. (4) Type 2 diabetes mellitus: Plan: Check A1c in AM-hemoglobin A1c 6.9 Diabetic diet BSG ACHS SSI (5) GRIFFIN (generalized anxiety disorder): (6) Major depressive disorder without psychotic features: (7) Hyperlipidemia: Plan Full code DVT prophylaxis: scd and baby aspirin bid. Dispo: awaiting placement. Admission and Anticipated Discharge Date Admission Date: June 19, 2023 Subjective 67-year-old gentleman postop day 5 from left total hip replacement done for displaced femoral neck fracture. He is doing better today, reports pain under control at operative site. Eating ok and moving bowels ok per pt. No complaints. No chest pain or shortness of breath. Not feeling dizzy or lightheaded. Physical Exam Physical Exam: GENERAL: Alert and oriented x3. NAD, on RA. HEENT: No pallor, no icterus. Pupils equal, round and reactive to light. Oral mucosa moist. NECK: No JVD, no neck masses. HEART: S1 and S2 heard. Regular rate and rhythm. No murmur, no gallop. RESPIRATORY SYSTEM: Normal AP diameter. No accessory muscle use. No wheezing, no crackles. ABDOMEN: Soft, bowel sounds present, nontender, no distention. CENTRAL NERVOUS SYSTEM: No facial droop. Speech is clear. Obeys simple commands. Moves extremities. EXTREMITIES: No edema, no erythema seen. Left hip dressing c/d/i Results & Data Results & Data Vital Signs (Past 12 Hours) Vital Signs Temp Pulse Pulse Resp BP BP Pulse Ox 06/25/23 10:40 36.9 C 81 17 164/86 H 94 06/25/23 08:00 74 06/25/23 07:19 37.1 C 79 18 170/84 H 97 06/25/23 02:55 37.2 C 75 18 172/78 H 94 O2 Del Method 06/25/23 10:40 Room Air 06/25/23 08:00 06/25/23 07:19 Room Air 06/25/23 02:55 Room Air (1) Closed fracture of left hip Encounter type: initial encounter Qualified Code(s): S72.002A - Fracture of unspecified part of neck of left femur, initial encounter for closed fracture (4) Type 2 diabetes mellitus Diabetes mellitus operation agent insulin use: without operation agent use Diabetes mellitus complication status: without complication Qualified Code(s): E11.9 - Type 2 diabetes mellitus without complications (7) Hyperlipidemia Hyperlipidemia type: unspecified Qualified Code(s): E78.5 - Hyperlipidemia, unspecified
[2023-06-25] MEDS: carvediloL 6.25 MG TAB PO SCH (16:05)
[2023-06-25] MEDS: ARIPiprazole 5 MG TAB PO SCH (20:44)
[2023-06-25] MEDS: lamoTRIgine 100 MG TAB PO SCH (20:46)
[2023-06-25] MEDS: LIOTHYRONINE SODIUM 25 MCG TAB PO SCH (20:46)
[2023-06-25] MEDS: MIRTAZAPINE SOLTAB 15 MG PO SCH (20:47)
[2023-06-25] MEDS: ATORVASTATIN 40 MG TAB PO SCH (20:48)
[2023-06-25] MEDS: FLUoxetine HCL 20 MG CAP PO SCH (20:50)
[2023-06-26] MEDS: ACETAMINOPHEN 500 MG TAB PO SCH ×3 (05:58→20:32)
[2023-06-26] MEDS: carvediloL 6.25 MG TAB PO SCH ×2 (08:19→17:00)
[2023-06-26] MEDS: ASPIRIN 81 MG ECTAB PO SCH ×2 (08:19→20:33)
[2023-06-26] MEDS: lisinopril 40 MG TAB PO SCH (08:19)
[2023-06-26] MEDS: INSULIN ASPART PER UNIT CHARGE SC SCH ×4 (08:23→21:33)
--- NOTE | 2023-06-26 08:32 | Surgery Progress Note ---
Date of Service June 26, 2023 Assessment & Plan (1) Closed fracture of left hip: Plan: 67-year-old male now 6 days out from a left uncemented hip replacement done for fracture. Orthopedically is doing well. Just waiting for placement. Pains controlled. Hips located. He is neurologically intact. Plan: 1. DVT prophylaxis including thigh-high teds, SCDs, baby aspirin twice a day for 6 weeks. 2. PT/OT. Weight-bear as tolerated. Total hip precautions. 3. Pain control. Doing reasonably well with current pain regimen. 4. Medical management as per the medicine service. 5. Disposition. He is orthopedically okay for discharge anytime.. He is just waiting for placement. I need to see him back 2 to 3 weeks out from surgery date. Any orthopedic questions can be directly [phone]. Admission and Anticipated Discharge Date Admission Date: June 19, 2023 Subjective 67-year-old gentleman now postop day 6 from a left hip replacement done for fracture. He is doing well. Really minimal hip pain. He is just waiting for placement. Physical Exam Physical Exam: Physical examination is a pleasant middle-age male. He is sitting up in his bedside chair eating breakfast. He looks comfortable. Examination left hip reveals the dressing be clean dry and intact. Thigh is soft and supple. Leg lengths are equal. He is neurologically intact. Results & Data Vital Signs (Past 12 Hours) Vital Signs Temp Pulse Pulse Resp BP Pulse Ox O2 Del Method 06/26/23 03:05 36.9 C 82 18 168/78 H 96 Room Air 06/25/23 23:31 60 06/25/23 22:12 37.1 C 87 18 169/89 H 95 Room Air PG Care Time/CCT Total # of Minutes Spent Total Time Spent with Patient: Total time spent is greater than 50% in coordination of care (as documented) at patient's floor/unit and/or counseling patient: Coding Level of Care Code 83618 Post Operative Follow-Up Diagnoses Closed fracture of left hip S72.002A Encounter type: initial encounter (1) Closed fracture of left hip Encounter type: initial encounter Qualified Code(s): S72.002A - Fracture of unspecified part of neck of left femur, initial encounter for closed fracture
[2023-06-26] MEDS: hydroCHLOROthiazide 25 MG TAB PO SCH (10:35)
--- NOTE | 2023-06-26 15:29 | Hospitalist Progress Note ---
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 Work-up in the ED reveals a mildly displaced left femoral neck fracture. he is being managed for the following: Closed fracture of left hip: Status post left total hip arthroplasty on 06/20/2023 Appreciate Ortho input and recommendation On baby aspirin and scds for DVT px PT OT evaluation, awaiting placement. Pain controlled, doing better. (2) Tachycardia: Plan: Unclear etiology - EKG with sinus rhythm, no atrial fib/flutter c/w beta syed Rate is controlled (3) Hypertensive urgency: Plan: Suspect multifactorial due to missed medications, pain, and anxiety at the time of presentation. Better controlled, still higher side. c/w lisinopril and metoprolol changed to coreg for better bp control, will follow. (4) Type 2 diabetes mellitus: Plan: Check A1c in AM-hemoglobin A1c 6.9 Diabetic diet BSG ACHS SSI (5) GRIFFIN (generalized anxiety disorder): (6) Major depressive disorder without psychotic features: (7) Hyperlipidemia: Plan Full code DVT prophylaxis: scd and baby aspirin bid. Dispo: awaiting placement. Admission and Anticipated Discharge Date Admission Date: June 19, 2023 Subjective 67-year-old gentleman postop day 6 from left total hip replacement done for displaced femoral neck fracture. He is doing better , reports pain under control at operative site. Eating ok and moving bowels ok per pt. No complaints. No chest pain or shortness of breath. Not feeling dizzy or lightheaded. Physical Exam Physical Exam: GENERAL: Alert and oriented x3. NAD, on RA. HEENT: No pallor, no icterus. Pupils equal, round and reactive to light. Oral mucosa moist. NECK: No JVD, no neck masses. HEART: S1 and S2 heard. Regular rate and rhythm. No murmur, no gallop. RESPIRATORY SYSTEM: Normal AP diameter. No accessory muscle use. No wheezing, no crackles. ABDOMEN: Soft, bowel sounds present, nontender, no distention. CENTRAL NERVOUS SYSTEM: No facial droop. Speech is clear. Obeys simple commands. Moves extremities. EXTREMITIES: No edema, no erythema seen. Left hip dressing c/d/i Results & Data Results & Data Vital Signs (Past 12 Hours) Vital Signs Temp Pulse Pulse Resp BP Pulse Ox O2 Del Method 06/26/23 15:24 36.9 C 94 H 18 158/93 H 92 Room Air 06/26/23 12:00 80 06/26/23 11:07 37.1 C 92 H 18 165/88 H 97 Room Air 06/26/23 07:32 36.9 C 84 17 186/94 H 96 Room Air (1) Closed fracture of left hip Encounter type: initial encounter Qualified Code(s): S72.002A - Fracture of unspecified part of neck of left femur, initial encounter for closed fracture (4) Type 2 diabetes mellitus Diabetes mellitus detention insulin use: without detention use Diabetes mellitus complication status: without complication Qualified Code(s): E11.9 - Type 2 diabetes mellitus without complications (7) Hyperlipidemia Hyperlipidemia type: unspecified Qualified Code(s): E78.5 - Hyperlipidemia, unspecified
[2023-06-26] MEDS: ATORVASTATIN 40 MG TAB PO SCH (20:32)
[2023-06-26] MEDS: lamoTRIgine 100 MG TAB PO SCH (20:32)
[2023-06-26] MEDS: ARIPiprazole 5 MG TAB PO SCH (20:33)
[2023-06-26] MEDS: MIRTAZAPINE SOLTAB 15 MG PO SCH (20:33)
[2023-06-26] MEDS: FLUoxetine HCL 20 MG CAP PO SCH (20:33)
[2023-06-26] MEDS: LIOTHYRONINE SODIUM 25 MCG TAB PO SCH (20:33)
[2023-06-27] MEDS: ACETAMINOPHEN 500 MG TAB PO SCH (05:39)
[2023-06-27] MEDS: CYCLOBENZAPRINE HCL 5 MG TAB PO PRN (07:52)
[2023-06-27] MEDS: INSULIN ASPART PER UNIT CHARGE SC SCH ×2 (08:45→12:20)
[2023-06-27] MEDS: hydroCHLOROthiazide 25 MG TAB PO SCH (08:46)
[2023-06-27] MEDS: lisinopril 40 MG TAB PO SCH (08:47)
[2023-06-27] MEDS: ASPIRIN 81 MG ECTAB PO SCH (08:47)
[2023-06-27] MEDS: carvediloL 6.25 MG TAB PO SCH (08:47)
--- NOTE | 2023-06-27 11:37 | Discharge Summary ---
Date of Service June 27, 2023 Admission HPI Per Admitting Provider This is a 67 y/o male with DM2, HTN, prior CVA, dyslipidemia, depression, anxiety, and other history as outlined who presents to the ED today after a fall last night with resultant left hip pain. Pt states he was getting up from the couch last evening when he caught his right foot on a stack of books. He landed on his left hip and buttock with resultant immediate pain in the lateral left hip. He was able to pull himself up onto the couch where he spent the night, but he continued to have pain so he called for help this morning. He is not able to bear weight on the LLE without pain. He denies numbness or tingling in the LE. His pain is currently 6/10 after fentanyl and morphine. Work-up in the ED revealed a mildly displaced left femoral neck fracture. Pt denies hitting his head or LOC. He denies chest pain at rest or with exertion, dizziness, syncope, palpitations, shortness of breath at rest, N/V/D. He has chronic mild YEN that is unchanged from baseline. He does not routinely check his BP or blood sugar at home. He denies residual deficits from CVA in 2019. He missed his routine medication last night due to his fall. Admission Exam Per Admitting Provider General: awake, alert, NAD HEENT: no scleral icterus, slightly dry oral mucosa Neck: trachea midline Heart: regular but tachycardic Lungs: CTA bilaterally on the anterior, no W/R/R, no tachypnea, no increased WOB Abdomen: soft, +BS Extremities: no pedal edema; LLE externally rotated and shortened, bilateral LE NVI Pulses: radial, PT, and DP pulses 2+ and equal bilaterally Skin: no jaundice Neuro: oriented x 3, no dysarthria, able to move toes bilaterally Principal Diagnosis Left Hip Replacement for fracture. Discharge Exam GENERAL: Alert and oriented x3. NAD, on RA. HEENT: No pallor, no icterus. Pupils equal, round and reactive to light. Oral mucosa moist. NECK: No JVD, no neck masses. HEART: S1 and S2 heard. Regular rate and rhythm. No murmur, no gallop. RESPIRATORY SYSTEM: Normal AP diameter. No accessory muscle use. No wheezing, no crackles. ABDOMEN: Soft, bowel sounds present, nontender, no distention. CENTRAL NERVOUS SYSTEM: No facial droop. Speech is clear. Obeys simple commands. Moves extremities. EXTREMITIES: No edema, no erythema seen. Left hip dressing c/d/i Discharge Data Allergies Allergy/AdvReac Type Severity Reaction Status Date / Time No Known Allergies Allergy Unknown Verified 02/26/17 21:05 Consultations 06/19/23 13:25 Consult Orthopedic Surgery Routine ED Decision to Admit Stat 06/19/23 15:06 Consult Orthopedic Surgery Routine Procedures Performed Operation Date: 06/20/23 08:30 Actual Procedures p Left Total Hip Arthroplasty (Left) - Clyde Yang MD Ordered Studies 06/19/23 10:55 CT abd pelvis IV con only Stat CT angio chest PE protocol Stat CT cervical spine wo con Stat CT head/brain wo con Stat Hospital Course (1) Closed fracture of left hip: This is a 67 y/o male with DM2, HTN, prior CVA, dyslipidemia, depression, anxiety, and other history as outlined who presents to the ED after a fall the night [employer] with resultant left hip pain. Work-up in the ED reveals a mildly displaced left femoral neck fracture. he was managed for the following: Closed fracture of left hip: Status post left total hip arthroplasty on 06/20/2023 Appreciate Ortho input and recommendation On baby aspirin and scds for DVT px -baby aspirin twice a day until 08/01/2023, then once daily. PT OT evaluation, awaiting placement. Pain controlled, doing better. Patient to follow-up with orthopedics in 2 weeks time upon discharge, patient is made aware. (2) Tachycardia: Unclear etiology - EKG with sinus rhythm, no atrial fib/flutter c/w beta syed Rate is controlled (3) Hypertensive urgency: Suspect multifactorial due to missed medications, pain, and anxiety at the time of presentation. Better controlled, still higher side. c/w lisinopril and metoprolol changed to coreg for better bp control, will follow. (4) Type 2 diabetes mellitus: Check A1c in AM-hemoglobin A1c 6.9 Diabetic diet BSG ACHS SSI (5) GRIFFIN (generalized anxiety disorder): (6) Major depressive disorder without psychotic features: (7) Hyperlipidemia: Plan Full code DVT prophylaxis: scd and baby aspirin bid. He is being discharged to [facility] with following instruction at the point of discharge: Follow-up with your primary care physician within a week time and likely you will need labs CBC/CMP/magnesium/phosphorus. Follow-up with orthopedic doctors in 2 weeks time upon discharge. For your hypertension, continue with your prior to arrival lisinopril; Coreg and hydrochlorothiazide have been added. Measure your blood pressure twice a day, maintain a log to take to your PCP for further evaluation/management. Maintain low-sodium diet [less than 2 g a day]. Maintain heart healthy diet. Take your baby aspirin twice a day until 08/01/2023 and then you can continue your once a day baby aspirin. Take your medications as prescribed. Please make sure that you are able to get your medications today by calling your pharmacy before you leave the hospital so that your treatment continuity is not broken. Home Health Attestation I certify that this patient is under my care and that I, or a physicians prosthetics assistant working with me, had a face to-face encounter that meets the home health ahts-sp-xhey encounter requirements with this patient. The encounter with the patient was in whole, or in part, for the following medical condition, which is the primary reason for home health care (list medical condition): I certify that, based on my findings, the following services are medically necessary home health services: My clinical findings support the need for the above services because: Further, I certify that my clinical findings support that this patient is h omebound (i.e. absences from home require considerable and taxing effort and are for medical reasons or zoroastrian services or infrequently or of short duration when for other reasons) because: Certification for Home Health Services: Based on the above findings, I certify that this patient is confined to the home and needs intermittent long term care, physical therapy and/or speech therapy or continues to need occupational therapy. The patient is under my care, and I have initiated the establishment of the plan of care. This patient will be followed by a physician who will periodically review the plan of care. Total Time Total Time Spent Total Time Spent (In Minutes): 45 Discharge Plan Discharge Items Patient Disposition: Transfer Inpatient Rehab Fac Reason For Visit: LEFT HIP FX,HYPERTENSIVE URGENCY Discharge Diagnosis: Left Hip Replacement for fracture. Activity: Per Instructions section Activity Comment: Follow/Obey hip precautions at all times. Weightbearing: Full weightbearing Weightbearing Comment: May wieghtbear as tolerated obeying hip precautions at all times. Non-emergency contact: Surgeon Call non-emergency contact if: you have any medication questions Follow-up/Referrals: Clyde Yang MD [Physician] - Cory Carter MD [Primary Care Provider] - Diet: Carb Consistent or DM2 and Heart Healthy Addtl Attending Provider Instructions: ACTIVITY RECOMMENDATIONS: Physical Therapy: * Aggressive physical therapy is not usually needed. You will learn to take care of yourself safely and walk. * Follow the "Hip Precautions Instructions." * In some cases, the social media editor at the hospital will arrange to have a therapist come to your house for the first couple of weeks to help you learn these skills. * You need to practice on your own or with the help of a family member as needed. * When you learn these skills, most of the therapy can be done on your own. Home Exercise: * You were shown a series of exercises in the hospital. Do these exercises three to four times each day including the exercises you were shown in physical therapy. Walking: * Get up and walk several times each day. For the first four weeks, try not to stand or walk for more than one hour at a time. If you do stand or walk for more than one hour, you will not hurt anything, but your leg will likely swell. * As you feel comfortable, you may change from the walker or crutches to a cane and then to independent walking. MEDICATIONS: New Medicine: * You will likely be taking one or more of these medicines: 1. Tramadol - Take, as directed, when you need it, every six hours to control your pain. 2. Aspirin - Thins your blood to lessen the chance of forming a blood clot. * The most common side effects of pain medicine and iron are nausea and constipation. If nausea or constipation is too much of a problem or if you have any questions about your new medicines or doses, call [facility] at . We will try to help you manage these issues. "VERY IMPORTANT TO READ AND REVIEW" Pain: * The immediate post-operative period after hip replacement surgery is often quite painful. * You are given a prescription for pain medicine. You should take it, as directed, when you need it, especially before physical therapy and before going to bed. Pain that interferes with sleep is very common and can last several months. * You will likely need pain medicine for the first two to four weeks. It will not stop all of the pain. The pain will lessen and as you feel better, you may change to milder pain medicine such as Tylenol. * The most common side effects of pain medicine are nausea and constipation, so don't take more than you need. SPECIAL CARE INSTRUCTIONS: TEDs/Elastic Stockings: * The white elastic stockings help limit swelling and prevent blood clots from forming in your legs. The more you wear them, the more they work. * Wear them for six weeks. Incision Site Care: * Remove dressing postoperative day 2 and then shower. Keep direct shower pressure off the incision site. * After showering, cover juan a with dry gauze and change daily or more frequently if the dressing is getting saturated with drainage. * May completely stop using bandage if wound is dry and no drainage * [place] are removed between 2 and 3 weeks post-op. If your follow-up appointment is made before 2 weeks, please have your appointment re- scheduled. It is too early to remove the juan a. Prevention of Infection: * Take antibiotics one hour before any dental cleaning, dental work, urological procedure, gastrointestinal procedure or any invasive surgery in order to prevent your new joint from getting infected. * You may get the antibiotics from the doctor performing the procedure or you may call our office at before and we will call in a prescription to the pharmacy of your choice. Things to Watch For: * Drainage from the incision site that occurs more than one week after your surgery. * Severely increased leg pain or swelling. * Increased redness at the incision site. * Fever above 102 degrees Fahrenheit. * Unusual chest pain or shortness of breath. * Unusual pain or burning with urination. Call [facility] at with any of the above problems or if you have any questions about your medicines or recovery. FOLLOW UP VISIT: Make an appointment to see your doctor for approximately two weeks after surgery for a progress check and staple removal by calling the office at . Addtl Resort Housekeeper Provider Instructions: Follow-up with your primary care physician within a week time and likely you will need labs CBC/CMP/magnesium/phosphorus. Follow-up with orthopedic doctors in 2 weeks time upon discharge. For your hypertension, continue with your prior to arrival lisinopril; Coreg and hydrochlorothiazide have been added. Measure your blood pressure twice a day, maintain a log to take to your PCP for further evaluation/management. Maintain low-sodium diet [less than 2 g a day]. Maintain heart healthy diet. Take your baby aspirin twice a day until 08/01/2023 and then you can continue your once a day baby aspirin. Take your medications as prescribed. Please make sure that you are able to get your medications today by calling your pharmacy before you leave the hospital so that your treatment continuity is not broken. Pending Studies at Discharge: No Stand-Alone Forms: My [facility] Skilled Items Patient informed of condition?: Yes DNR: No Discharge Level of Care: Acute rehab Communicable Disease: No Discharge Prognosis: Stable Lines: None Urinary Catheter: No Medications and DC Order Prescriptions: New cyclobenzaprine 5 mg Tablet 5 mg PO TID PRN (Reason: muscle spasm) Qty: 30 0RF carvedilol 6.25 mg Tablet 6.25 mg PO BIDM Qty: 60 0RF hydrochlorothiazide 25 mg Tablet 12.5 mg PO QAM Qty: 15 0RF Continued fluoxetine 40 mg capsule 80 mg PO HS mirtazapine 45 mg tablet 45 mg PO HS aripiprazole 5 mg tablet 5 mg PO HS liothyronine 25 mcg tablet 25 mcg PO HS lisinopril 40 mg tablet 40 mg PO HS lamotrigine 100 mg tablet 100 mg PO HS atorvastatin 40 mg tablet 40 mg PO HS metformin 500 mg tablet extended release 24 hr 500 mg PO HS Changed aspirin 81 mg tablet,delayed release (DR/EC) 81 mg PO BID Qty: 60 0RF Rx Instructions: BID until 08/01/2023, then your regular once a day baby aspirin. Discharge Orders: Discharge Order (Routine); Ordered 06/27/23 Ordered By: Be Robles/Other Patient Handouts: Type 2 Diabetes Admission Data Admit Date/Time: 06/19/23 13:36 Attending Provider: Be Corea Admit Provider: Sirena Arana Primary Care Provider: Cory Carter Other Providers: Clyde Yang; [facility]; Sirena Arana Other Interventions: Discharge Summary Assessment (RN) Last Done: 06/27/23 11:33
== END 2023-06-27 13:29 | DRG 522 ==
LOC: ED 09:09 → SUATTDRO 13:36 → 2S 13:36 → 3W 06-26 17:30

== ENCOUNTER 2025-05-28 16:06 | Observation (INO) ==
[2025-05-28 17:02] LABS: Hematocrit (blood only) 39.0 % (42.0-52.0); Hemoglobin 13.0 g/dL (14.0-18.0); Immature Granulocytes # (auto) 0.01 K/uL (0.01-0.20); Immature Granulocytes % (auto) 0.2 %; Mean Corpuscular Hemoglobin 29.6 pg (25.0-34.0); Mean Corpuscular Volume 88.8 fL (80.0-100.0); Platelet Count 261 K/uL (130-400); RDW Standard Deviation 43.5 fL (36.4-46.3); Red Blood Count 4.39 M/uL (4.70-6.10); White Blood Count 4.94 K/ul (4.8-10.8)
[2025-05-28 17:20] LABS: Alanine Aminotransferase 14.0 U/L (7-52); Albumin Globulin Ratio 1.7 (0.9-2); Albumin Level 4.2 gm/dl (3.4-5.0); Alkaline Phosphatase 67.0 U/L (34-104); Anion Gap 4.0 (3-11); Bilirubin,Total 0.7 mg/dl (0.2-1.0); Blood Urea Nitrogen 18.0 mg/dl (6-23); Calcium 8.9 mg/dl (8.6-10.3); Carbon Dioxide 29.0 mmol/L (21-32); Chloride 108.0 mmol/L (98-107); Creatinine Clr Calc Pharmacy 82.1 ml/min; Globulin 2.5 gm/dl (2.5-4.0); Glucose 134.0 mg/dl (70-99(Fasting)); Magnesium 1.9 mg/dl (1.7-2.4); Potassium 3.9 mmol/L (3.5-5.1); Sodium 141.0 mmol/L (136-145); Total Protein 6.7 gm/dl (6.0-8.3)
--- NOTE | 2025-05-28 17:29 | Emergency Department Note ---
Impression & Plan Transient vision disturbance of both eyes, Brain TIA ED Provider Note NAME: TK SETHI AGE: 69 SEX: M : 1955 ARRIVES VIA: Walk-In INFORMANT: Patient, ED PROVIDER(S): Christos Kenny MD CHIEF COMPLAINT: Vision changes HPI: This is a 69-year-old female presenting male presenting for vision changes. Patient states that around 330 he began having trouble with his vision. He notes he had a crescent shaped visual loss. This appeared to be both sides of his eyes but mostly on the left eye. He notes in his left eye he had "sparking". This felt fairly reminiscent of his previous stroke that he had a few years ago. He had no pain with this. No headache, light sensitivity, redness of the eye, drainage. He notes no problems with motor function of the arms or legs. No facial droop is noted by patient. He does have currently resolved. Symptoms lasted about 10 minutes in total. Related to ROS: See above HPI for pertinent positives & negatives. A total of 10 systems reviewed and were otherwise negative. PAST MEDICAL HISTORY: See Below PAST SURGICAL HISTORY: See Below FAMILY HISTORY: See Below SOCIAL HISTORY: See Below HOME MEDICATIONS: See Below ALLERGIES: See Below VITALS: See Below PHYSICAL EXAMINATION: General: resting comfortably in no acute distress Head: Normocephalic and atraumatic Eyes: Normal inspection, extraocular muscles intact, PERRLA Ear, nose, throat: Normal external exam Neck: Normal range of motion Respiratory: lungs clear to auscultation bilaterally Cardiovascular: Regular rate/rhythm, no murmur GI: soft, nontender, no guarding or rebound Extremities: nontender, moves all extremities Neuro: The patient awake and alert, appropriately conversive, no focal deficits, symmetric faces, no motor drift, no dysmetria, symmetric strength Skin: Warm, dry, and intact MEDICAL DECISION MAKING: This is a 69-year-old male presenting for visual changes. Cranial nerve II to XII grossly intact. No current motor deficits. Consider TIA/stroke as possible etiology. Symptoms have completely resolved at this time. visual acuity 20/25 bilaterally -Bloodwork is reviewed showing no significant leukocytosis, anemia, electrolyte or creatinine abnormality - CT imaging of the head/neck currently negative for acute strokelike process - Patient blood pressure still elevated between 210 and 220. Will give IV labetalol for hypertensive symptoms - Blood pressure downtrending to 180s -Due to possible TIA, hypertension, will mid to the hospital at this time. Differential diagnosis: TIA, stroke, hemorrhage, vitreous detachment, retinal attachment Diagnostics interpreted by me: ECG: ECG independently interpreted by me with normal sinus rhythm, rate of 76, normal axis, normal ID, normal QRS, normal QTc, no ST segment elevations consistent with STEMI criteria Cardiac Monitoring: An order was placed for continuous cardiac monitoring. The monitor shows a rate of 77/rhythm. Past Med/Surg History Problem List (Updated 05/29/25 @ 00:14 by Christos Kenny MD) Brain TIA (Acute) Transient vision disturbance of both eyes (Acute) History of stroke Transient visual loss of both eyes Status post left hip replacement HTN (hypertension) Tachycardia (Acute) Closed fracture of left hip (Acute) Fall (Acute) Hypertensive urgency GRIFFIN (generalized anxiety disorder) Major depressive disorder without psychotic features Hyperlipidemia Type 2 diabetes mellitus Medical History Hx of falling (06/2023) left hip fx - surgery Bilateral cataracts History of hypertension had been on bp meds after stroke, then stopped all bp meds as was having "blacking out" when standing up - now is "slightly elevated" and pcp aware Hyperlipidemia History of tachycardia pt unaware, per record Major depressive disorder GRIFFIN (generalized anxiety disorder) Type 2 diabetes mellitus Cholelithiasis hx - no current issues Hepatic steatosis History of nephrolithiasis Homocystinuria Cerebrovascular accident (CVA) of right basal ganglia (12/2019) hx - "mild" left side of face still slightly numb- no longer follows with neuro Surgical History Hx of right cataract extraction History of left hip replacement (06/2023) due to fall History of lithotripsy S/P appendectomy Family History Mother Depression Uncle Stroke Social History Smoking Status: Never smoker Tobacco Type: Cigarettes Second Hand Exposure: No; Do You Dip or Chew Tobacco: No; Hx Alcohol Use: No Hx Substance Use: No Preferred Language: British Communication Ability: Effective Cement Mason Required: No Beliefs That Will Affect Care: None Current Living Situation: Alone Feels Safe at Home: Yes Gender Identity: Male Assistive Devices: None Allergies Allergies Allergy/AdvReac Type Severity Reaction Status Date / Time No Known Allergies Allergy Unknown Verified 05/28/25 19:56 Home Meds Home Medications Medication Instructions Recorded Confirmed metformin 500 mg tablet,extended 500 mg PO HS 06/19/23 05/28/25 release 24 hr aspirin 81 mg tablet,delayed 162 mg PO QPM 02/26/25 05/28/25 release atorvastatin 40 mg tablet 40 mg PO QPM 05/28/25 05/28/25 fluoxetine 20 mg capsule 20 mg PO QPM 05/28/25 05/28/25 lisinopril 20 mg tablet 20 mg PO QPM 05/28/25 05/28/25 Results & Data (ED) Vital Signs Vital Signs - 24 hr 05/28/25 16:14 05/28/25 16:57 05/28/25 17:00 Temperature 36.6 C Temperature Source Temporal Artery Scan Pulse Rate 75 78 Pulse Rate [Apical] 81 Respiratory Rate 18 18 Respiratory Effort / Characteristics Non-Labored Spontaneous Respiratory Pattern Regular Blood Pressure 216/86 H Blood Pressure [Right Arm] 222/113 H Blood Pressure Mean 129 Blood Pressure Mean [Right Arm] 149 Pulse Oximetry 95 98 Oxygen Delivery Method Room Air Room Air Sepsis Recent Fever Within 48 Hours No Sepsis New/Unexplained Change in Mental Status No Sepsis Action Taken by Nursing No Action Required 05/28/25 19:00 05/28/25 19:16 05/28/25 21:00 Temperature Temperature Source Pulse Rate 81 Pulse Rate [Apical] 83 80 Respiratory Rate 18 18 Respiratory Effort / Characteristics Respiratory Pattern Blood Pressure 191/99 H Blood Pressure [Right Arm] 203/103 H 186/97 H Blood Pressure Mean Blood Pressure Mean [Right Arm] 136 126 Pulse Oximetry 99 96 Oxygen Delivery Method Room Air Room Air Sepsis Recent Fever Within 48 Hours Sepsis New/Unexplained Change in Mental Status Sepsis Action Taken by Nursing 05/28/25 21:17 Temperature Temperature Source Pulse Rate 81 Pulse Rate [Apical] Respiratory Rate Respiratory Effort / Characteristics Respiratory Pattern Blood Pressure 197/94 H Blood Pressure [Right Arm] Blood Pressure Mean Blood Pressure Mean [Right Arm] Pulse Oximetry Oxygen Delivery Method Sepsis Recent Fever Within 48 Hours Sepsis New/Unexplained Change in Mental Status Sepsis Action Taken by Nursing Laboratory Data 05/28/25 16:49 05/28/25 16:49 Lab Results 05/28/25 05/28/25 05/28/25 Range/Units 16:49 16:54 17:01 WBC 4.94 (4.8-10.8) K/ul RBC 4.39 L (4.70-6.10) M/uL Hgb 13.0 L (14.0-18.0) g/dL POC Hgb 11.9 L (14.0-18.0) g/dl Hct 39.0 L (42.0-52.0) % POC Hct 35 L (42-52) % MCV 88.8 (80.0-100.0) fL MCH 29.6 (25.0-34.0) pg MCHC 33.3 (32.0-36.0) g/dL RDW Std Deviation 43.5 (36.4-46.3) fL RDW Coeff of [place] 13.2 (11.5-14.5) % Plt Count 261 (130-400) K/uL MPV 9.5 (9.4-12.4) fL Immature Gran % (Auto) 0.2 % Neut % (Auto) 59.0 % Lymph % (Auto) 28.9 % [place] % (Auto) 8.3 % Eos % (Auto) 2.4 % Baso % (Auto) 1.2 % Neut # (Auto) 2.91 (1.40-6.50) K/uL Lymph # (Auto) 1.43 (1.20-3.40) K/uL [place] # (Auto) 0.41 (0.11-0.59) K/uL Eos # (Auto) 0.12 (0.00-0.50) K/uL Baso # (Auto) 0.06 (0.00-0.20) K/uL Immature Gran # (Auto) 0.01 (0.01-0.20) K/uL PT 10.9 (9.0-12.0) Seconds INR 1.0 (0.9-1.1) APTT 25 (21-31) Seconds PTT Ratio 0.9 POC Sodium 141 (135-144) mmol/L Sodium 141 (136-145) mmol/L POC Potassium 3.9 (3.3-5.0) mmol/L Potassium 3.9 (3.5-5.1) mmol/L POC Chloride 105 (101-112) mmol/L Chloride 108 H (98-107) mmol/L Carbon Dioxide 29 (21-32) mmol/L POC Total CO2 24 (24-31) mmol/L Anion Gap 4 (3-11) POC Anion Gap 16.0 (16-25) mmol/L POC BUN 17 (7-18) mg/dl BUN 18 (6-23) mg/dl Creatinine 0.93 (0.6-1.4) mg/dl POC Creatinine 1.0 (0.6-1.3) mg/dl Est Cr Clr Drug Dosing 82.1 ml/min eGFR 90.00 BUN/Creatinine Ratio 19.4 (10-20) Glucose 134 H (70-99(Fasting)) mg/dl POC Glucose 136 H (70-99) mg/dl POC Glucose (other) 131 H (70-99) mg/dl Calcium 8.9 (8.6-10.3) mg/dl POC Ioniz Calcium Mamie 1.18 (1.12-1.32) mmol/l Magnesium 1.9 (1.7-2.4) mg/dl Total Bilirubin 0.7 (0.2-1.0) mg/dl AST 17 (13-39) U/L ALT 14 (7-52) U/L Alkaline Phosphatase 67 (34-104) U/L Troponin I High Sens 3.0 (0-20) pg/ml Total Protein 6.7 (6.0-8.3) gm/dl Albumin 4.2 (3.4-5.0) gm/dl Globulin 2.5 (2.5-4.0) gm/dl Albumin/Globulin Ratio 1.7 (0.9-2) Administered Medications Clopidogrel Bisulfate (Clopidogrel Bisulfate 75 Mg Tab) 75 mg PO HS DONNA Stop: 06/27/25 22:04 Last Admin: 05/28/25 22:44 Dose: 75 mg Documented By: [id number] Lisinopril (Lisinopril 2.5 Mg Tab) 2.5 mg PO HS DONNA Stop: 06/27/25 22:09 Last Admin: 05/28/25 22:44 Dose: 2.5 mg Documented By: [id number] Discontinued Medications Magnesium Sulfate/Dextrose (Magnesium Sulfate / D5w) 1 gm in 100 mls @ 50 mls/hr IV ONE ONE Stop: 05/28/25 22:11 Last Infusion: 05/28/25 22:29 Dose: Infused Documented By: [id number] Admin: 05/28/25 20:38 Dose: 50 mls/hr Documented By: [id number] Ioversol (Optiray 320 125ml) 115 ml IV ONCE ONE Stop: 05/28/25 18:05 Last Admin: 05/28/25 18:05 Dose: 115 ml Documented By: [id number] Labetalol HCl (Labetalol Hcl Iv 5 Mg/Ml 20ml) 10 mg IV NOW STA Stop: 05/28/25 19:03 Last Admin: 05/28/25 19:16 Dose: 10 mg Documented By: [id number] Imaging Data Radiologist's Impression: Head CT 05/28/25 16:43 CT head angiogram with and without contrast History: Vision changes Comparison: None Technique: Using multidetector thin collimation helical acquisition technique, axial, coronal and sagittal CT images from the skull base to the vertex were obtained without intravenous contrast. CT angiogram of the head performed after the administration of IV contrast. MIP reconstructions created. Dose reduction techniques were achieved by using automatic exposure control and/or adjustment of mA and/or kV according to patient size and/or use of iterative reconstruction technique. Findings: No intracranial hemorrhage, mass-effect, or midline shift. The ventricles are proportionate to the cerebral sulci. The chakraborty to white matter differentiation of the cerebral hemispheres is preserved. The basal cisterns are patent. Chronic lacunar infarct in the right basal ganglia. The visualized paranasal sinuses are clear. Mastoid air cells are clear. CTA shows no evidence for intracranial large vessel occlusion or hemodynamically significant stenosis. No visualized aneurysm. Impression: No acute intracranial pathology. Normal CTA of the head. Electronically signed by Parish Craig 05-28-2025 6:28 PM Head CTA 05/28/25 16:43 CT head angiogram with and without contrast History: Vision changes Comparison: None Technique: Using multidetector thin collimation helical acquisition technique, axial, coronal and sagittal CT images from the skull base to the vertex were obtained without intravenous contrast. CT angiogram of the head performed after the administration of IV contrast. MIP reconstructions created. Dose reduction techniques were achieved by using automatic exposure control and/or adjustment of mA and/or kV according to patient size and/or use of iterative reconstruction technique. Findings: No intracranial hemorrhage, mass-effect, or midline shift. The ventricles are proportionate to the cerebral sulci. The chakraborty to white matter differentiation of the cerebral hemispheres is preserved. The basal cisterns are patent. Chronic lacunar infarct in the right basal ganglia. The visualized paranasal sinuses are clear. Mastoid air cells are clear. CTA shows no evidence for intracranial large vessel occlusion or hemodynamically significant stenosis. No visualized aneurysm. Impression: No acute intracranial pathology. Normal CTA of the head. Electronically signed by Parish Craig 05-28-2025 6:28 PM Neck CTA 05/28/25 16:43 CT angiogram of the neck Provided History: Patient changes Comparison: None Technique: NECK CTA: During rapid bolus intravenous injection of nonionic contrast material, axial images were obtained using thin collimation multidetector helical technique from the base of the neck through the base of the skull. This CT angiogram data was reconstructed at thin intervals with mild overlap. 3D reconstructions were obtained. The axial source images, multiplanar reformations, 3D reconstructions in both maximum intensity projection display and volume rendered models were reviewed. Dose reduction techniques were achieved by using automatic exposure control and/or adjustment of mA and/or kV according to patient size and/or use of iterative reconstruction technique. Findings: Neck CTA demonstrates no stenosis of the major cervical arteries. The origins of the great vessels from the aortic arch are patent. The normal distal right internal carotid artery measures 5 mm. The normal distal left internal carotid artery measures 5 mm. No mass is noted within the visualized portions of the cervical soft tissues or lung apices. Impression: Neck CTA demonstrates no stenosis of the major cervical arteries. Electronically signed by Parish Craig 05-28-2025 6:55 PM Brain MRI 05/28/25 21:24 Exam(s): MRI HEAD Without Contrast EXAM: MR Head Without Intravenous Contrast CLINICAL HISTORY: Reason for exam: strokel chris symptoms. OTHER: Other Notes: old stroke, vision issues left eye, rule out cva TECHNIQUE: Magnetic resonance images of the head/brain without intravenous contrast in multiple planes. COMPARISON: Head CT 05/28/2025. FINDINGS: Brain: No acute infarct. Chronic lacunar infarct in the right beal radiata. No intracranial hemorrhage. Mild periventricular signal changes consistent with chronic microvascular ischemic changes. Ventricles: Unremarkable. No ventriculomegaly. Bones/joints: Unremarkable. No acute fracture. Sinuses: Unremarkable as visualized. No acute sinusitis. Mastoid air cells: Partial right mastoid effusion. Left mastoid air cells are clear.. Orbits: Unremarkable as visualized. IMPRESSION: No acute intracranial abnormality. Electronically signed by: Efren Sheth MD 05/28/25 23:33 PM Discharge Plan Visit Data Chief Complaint: Eye Problems Stated Complaint: CRESCENT VISION (MORE IN LT EYE), HX STROKE 3 YRS ED Provider: Christos Kenny Discharge Problem: Transient vision disturbance of both eyes, Brain TIA Patient Disposition: Admitted As Inpatient Condition: Fair Discharge Instructions Interventions: ED Discharge Assessment Last Done: 05/28/25 22:56
[2025-05-28 17:31] LABS: INR 1.0 (0.9-1.1); Partial Thromboplastin Time 25 Seconds (21-31); Prothrombin Time 10.9 Seconds (9.0-12.0)
[2025-05-28] MEDS: OPTIRAY 320 125ml IV ONE (18:05)
--- NOTE | 2025-05-28 18:28 | CT Scan Report ---
CT head angiogram with and without contrast History: Vision changes Comparison: None Technique: Using multidetector thin collimation helical acquisition technique, axial, coronal and sagittal CT images from the skull base to the vertex were obtained without intravenous contrast. CT angiogram of the head performed after the administration of IV contrast. MIP reconstructions created. Dose reduction techniques were achieved by using automatic exposure control and/or adjustment of mA and/or kV according to patient size and/or use of iterative reconstruction technique. Findings: No intracranial hemorrhage, mass-effect, or midline shift. The ventricles are proportionate to the cerebral sulci. The chakraborty to white matter differentiation of the cerebral hemispheres is preserved. The basal cisterns are patent. Chronic lacunar infarct in the right basal ganglia. The visualized paranasal sinuses are clear. Mastoid air cells are clear. CTA shows no evidence for intracranial large vessel occlusion or hemodynamically significant stenosis. No visualized aneurysm. Impression: No acute intracranial pathology. Normal CTA of the head. Electronically signed by Parish Craig 05-28-2025 6:28 PM
--- NOTE | 2025-05-28 18:56 | CT Scan Report ---
CT angiogram of the neck Provided History: Patient changes Comparison: None Technique: NECK CTA: During rapid bolus intravenous injection of nonionic contrast material, axial images were obtained using thin collimation multidetector helical technique from the base of the neck through the base of the skull. This CT angiogram data was reconstructed at thin intervals with mild overlap. 3D reconstructions were obtained. The axial source images, multiplanar reformations, 3D reconstructions in both maximum intensity projection display and volume rendered models were reviewed. Dose reduction techniques were achieved by using automatic exposure control and/or adjustment of mA and/or kV according to patient size and/or use of iterative reconstruction technique. Findings: Neck CTA demonstrates no stenosis of the major cervical arteries. The origins of the great vessels from the aortic arch are patent. The normal distal right internal carotid artery measures 5 mm. The normal distal left internal carotid artery measures 5 mm. No mass is noted within the visualized portions of the cervical soft tissues or lung apices. Impression: Neck CTA demonstrates no stenosis of the major cervical arteries. Electronically signed by Parish Craig 05-28-2025 6:55 PM
[2025-05-28] MEDS: LABETALOL HCL IV 5 MG/ML 20ML IV STA (19:16)
--- NOTE | 2025-05-28 20:25 | History & Physical Report ---
Date of Service May 28, 2025 Assessment & Plan (1) Transient visual loss of both eyes: (2) Type 2 diabetes mellitus: (3) Hypertensive urgency: (4) History of stroke: (5) Stroke-like symptoms: Plan 69 year old M presents with acute onset transient b/l vision changes including pea-sized spots and disappearing text while reading. Symptoms resolved while in ED. Also has HTN urgency; does not take his BP at home. Add'l PMH includes H/O CVA (2019), HTN, HLD, and NIDDM2. #Stroke-like Symptoms: #Transient vision loss; bilateral: Continue r/o CVA given history No leukocytosis Head CT: negative Head/Neck CTA: negative for stenosis or mass Brain MRI ordered ECHO: Most recent 12/2019 Mild concentric LVH,LV hyperdynamic, EF 60-65%, LVWMN; repeat ECHO Neuro Consult ordered Takes High Dose Atorvastatin; continue Allow permissive HTN for now; until Brain MRI r/o stroke NIH: 0 Positive red reflex bilaterally Takes Baby ASA; continue Add on ESR/CRP to r/o Temporal arteritis #HTN urgency: SBP > 200 Labetolol 10 mg given in ED; Labetolol 5 mg IV one PRN for SBP > 220 Prefer nursing contact if they use to adjust or write a new order Takes Lisinopril; hold for now #History of CVA: CVA occurred in 2019; some residual left face neuropathy No longer follows with Neuro #NIDDM2: Most recent OPT A1C 04/2024 6.4 Takes Metformin; hold while inpt Place on ACHS SSI Disposition: PCP: Dr. Carter Code Status: Full VTE Prophyalxis: Teds and SCDs for now I spent a total of 79 minutes coordinating, documenting, and providing care for this patient excluding time spent inthe performance of separately billed services or time spent by another provider/QHP. History of Present Illness Chief Complaint: vision loss Primary Care Provider: Cory Carter MD Mr. Macario is a 69 year old male that presents with acute onset transient b/l vision changes including pea-sized spots and disappearing text while reading. Symptoms resolved while in ED. Also has HTN urgency; does not take his BP at home. Add'l PMH includes H/O CVA (2019), HTN, HLD, and NIDDM2. He had cataract sx a few years ago without complications. He was his normal self until 4:30 this afternoon when he was sitting and reading a book; he noticed pea-sized black spots on the pages of his book; followed by disappearing texts. After 3 minutes he noticed a crescent ambrosio in both of his eyes. He reports that his symptoms have resolved while here. He stated that he had a CVA in 2019, and his mother had a stroke also. He used to follow with neurology but does not anymore. He does not monitor his BP at home. In the ED, a head CT was CTA shows no evidence for intracranial large vessel occlusion or hemodynamically significant stenosis. No visualized aneurysm. No acute intracranial pathology. Normal CTA of the head. Pt denies tobacco, alcohol, or recreational drug use. Pt denies BELL, auditory changes, dizziness, SOB, chest pain, abdominal pain or tenderness, dysuria, hematochezia, recent falls or trauma. On examination, he is AAOx3, able to hold meaningful conversation; soft spoken voice. Equal muscle strength throughout and NIH 0. Lungs CTA, S1/S2, eye exam; PERRLA, 3cm B/L, (+) red reflex b/l, no edema. Patient will be admitted for continued formal stroke work up including Brain MRI, ECHO, Neuro consult, Lipid panel, A1C, Plavix 75 mg once now; permissive HTN. Will need HTN medication adjustment if stroke ruled out. SSI ACHS. PLease see A/P for further details Allergies Allergy/AdvReac Type Severity Reaction Status Date / Time No Known Allergies Allergy Unknown Verified 05/28/25 19:56 Home Medications Medication Instructions Recorded Confirmed Type metformin 500 mg tablet,extended 500 mg PO HS 06/19/23 05/28/25 History release 24 hr aspirin 81 mg tablet,delayed 162 mg PO QPM 02/26/25 05/28/25 History release atorvastatin 40 mg tablet 40 mg PO QPM 05/28/25 05/28/25 History fluoxetine 20 mg capsule 20 mg PO QPM 05/28/25 05/28/25 History lisinopril 20 mg tablet 20 mg PO QPM 05/28/25 05/28/25 History Past Med/Surg History Problem List (Updated 05/28/25 @ 20:22 by ARIADNE [place]) History of stroke Transient visual loss of both eyes Status post left hip replacement HTN (hypertension) Tachycardia (Acute) Closed fracture of left hip (Acute) Fall (Acute) Hypertensive urgency GRIFFIN (generalized anxiety disorder) Major depressive disorder without psychotic features Hyperlipidemia Type 2 diabetes mellitus Medical History Hx of falling (06/2023) left hip fx - surgery Bilateral cataracts History of hypertension had been on bp meds after stroke, then stopped all bp meds as was having "blacking out" when standing up - now is "slightly elevated" and pcp aware Hyperlipidemia History of tachycardia pt unaware, per record Major depressive disorder GRIFFIN (generalized anxiety disorder) Type 2 diabetes mellitus Cholelithiasis hx - no current issues Hepatic steatosis History of nephrolithiasis Homocystinuria Cerebrovascular accident (CVA) of right basal ganglia (12/2019) hx - "mild" left side of face still slightly numb- no longer follows with neuro Surgical History Hx of right cataract extraction History of left hip replacement (06/2023) due to fall History of lithotripsy S/P appendectomy Family History Mother Depression Uncle Stroke Social History Smoking Status: Never smoker Tobacco Type: Cigarettes Second Hand Exposure: No; Do You Dip or Chew Tobacco: No; Hx Alcohol Use: No Hx Substance Use: No Preferred Language: Romanian Communication Ability: Effective Sales Counselor Required: No Beliefs That Will Affect Care: None Current Living Situation: Alone Feels Safe at Home: Yes Gender Identity: Male Assistive Devices: None Review of Systems Review of Systems: Neuro: (-) Falls, trauma, slurred speech HEENT: (-) BELL, dizziness, dysphagia, visual or auditory changes CV: (-) CP, palpitations, swelling Resp: (-) SOB GI: (-) appetite changes, N/V/D, bowel changes : (-) urinary changes Skin: (-) rashes Psych: (-) anxiety, depression Physical Exam Physical Exam: Neuro: AAOx4, PERRLA, no aphagia, memory changes, CNII-XII grossly intact HEENT: head normocephalic, moist mucus membranes CV: S1/S2, (-) M/G/R, (-) edema, cap refill < 3 seconds Resp: Lungs CTA in all raygoza. On RA GI: Abdomen S/NT/ND, Ax4 bowel sounds, (-) CVA tenderness Musculoskeletal: 5/5 B/L UE strength, 5/5 B/L LE strength. No gait disturbance Skin: (-) rashes , (-) erythema. Psych: euthymic mood Results & Data Results & Data Vital Signs (Past 12 Hours) Vital Signs Temp Pulse Pulse Resp BP BP Pulse Ox 05/28/25 19:16 81 191/99 H 05/28/25 19:00 83 18 203/103 H 99 05/28/25 17:00 81 18 222/113 H 98 05/28/25 16:57 78 05/28/25 16:14 36.6 C 75 18 216/86 H 95 O2 Del Method 05/28/25 19:16 05/28/25 19:00 Room Air 05/28/25 17:00 Room Air 05/28/25 16:57 05/28/25 16:14 Room Air Laboratory Results Short CBC 05/28/25 Range/Units 16:49 WBC 4.94 (4.8-10.8) K/ul Hgb 13.0 L (14.0-18.0) g/dL Hct 39.0 L (42.0-52.0) % Plt Count 261 (130-400) K/uL BMP 05/28/25 16:49 Sodium 141 Potassium 3.9 Chloride 108 H Carbon Dioxide 29 BUN 18 Creatinine 0.93 Glucose 134 H Calcium 8.9 Liver Function 05/28/25 Range/Units 16:49 Total Bilirubin 0.7 (0.2-1.0) mg/dl AST 17 (13-39) U/L ALT 14 (7-52) U/L Alkaline Phosphatase 67 (34-104) U/L Albumin 4.2 (3.4-5.0) gm/dl Diagnostic Findings Head CT 05/28/25 16:43 CT head angiogram with and without contrast History: Vision changes Comparison: None Technique: Using multidetector thin collimation helical acquisition technique, axial, coronal and sagittal CT images from the skull base to the vertex were obtained without intravenous contrast. CT angiogram of the head performed after the administration of IV contrast. MIP reconstructions created. Dose reduction techniques were achieved by using automatic exposure control and/or adjustment of mA and/or kV according to patient size and/or use of iterative reconstruction technique. Findings: No intracranial hemorrhage, mass-effect, or midline shift. The ventricles are proportionate to the cerebral sulci. The chakraborty to white matter differentiation of the cerebral hemispheres is preserved. The basal cisterns are patent. Chronic lacunar infarct in the right basal ganglia. The visualized paranasal sinuses are clear. Mastoid air cells are clear. CTA shows no evidence for intracranial large vessel occlusion or hemodynamically significant stenosis. No visualized aneurysm. Impression: No acute intracranial pathology. Normal CTA of the head. Electronically signed by Parish Craig 05-28-2025 6:28 PM Head CTA 05/28/25 16:43 CT head angiogram with and without contrast History: Vision changes Comparison: None Technique: Using multidetector thin collimation helical acquisition technique, axial, coronal and sagittal CT images from the skull base to the vertex were obtained without intravenous contrast. CT angiogram of the head performed after the administration of IV contrast. MIP reconstructions created. Dose reduction techniques were achieved by using automatic exposure control and/or adjustment of mA and/or kV according to patient size and/or use of iterative reconstruction technique. Findings: No intracranial hemorrhage, mass-effect, or midline shift. The ventricles are proportionate to the cerebral sulci. The chakraborty to white matter differentiation of the cerebral hemispheres is preserved. The basal cisterns are patent. Chronic lacunar infarct in the right basal ganglia. The visualized paranasal sinuses are clear. Mastoid air cells are clear. CTA shows no evidence for intracranial large vessel occlusion or hemodynamically significant stenosis. No visualized aneurysm. Impression: No acute intracranial pathology. Normal CTA of the head. Electronically signed by Parish Craig 05-28-2025 6:28 PM Neck CTA 05/28/25 16:43 CT angiogram of the neck Provided History: Patient changes Comparison: None Technique: NECK CTA: During rapid bolus intravenous injection of nonionic contrast material, axial images were obtained using thin collimation multidetector helical technique from the base of the neck through the base of the skull. This CT angiogram data was reconstructed at thin intervals with mild overlap. 3D reconstructions were obtained. The axial source images, multiplanar reformations, 3D reconstructions in both maximum intensity projection display and volume rendered models were reviewed. Dose reduction techniques were achieved by using automatic exposure control and/or adjustment of mA and/or kV according to patient size and/or use of iterative reconstruction technique. Findings: Neck CTA demonstrates no stenosis of the major cervical arteries. The origins of the great vessels from the aortic arch are patent. The normal distal right internal carotid artery measures 5 mm. The normal distal left internal carotid artery measures 5 mm. No mass is noted within the visualized portions of the cervical soft tissues or lung apices. Impression: Neck CTA demonstrates no stenosis of the major cervical arteries. Electronically signed by Parish Craig 05-28-2025 6:55 PM Code Status & VTE Plan Code Status Full Code in the event of cardiac or respiratory arrest VTE Prophylaxis Plan VTE Prophylaxis will be ordered: Yes Supervising Physician Co-Signing Physician Notes IM ATTENDING : Patient seen and examined. History obtained from patient and records. Concur with salient points upon review of preceding documentation by ARIADNE Rivera. I take responsibility for plan of care below. FINAL ASSESSMENT AND PLAN as follows : TIA presenting as transient bitemporal hemianopsia History ischemic CVA History homocystinuria as per records Possible aspirin failure Hypertension, elevated secondary to above Hyperlipidemia on statin Rx DM2 on oral medications, well-controlled as of recent hemoglobin A1c of 6.4 last year Mood disorder, stable on regimen OBS Admit to med/tele Neurochecks Add Plavix to aspirin for possible aspirin failure Continue statin Rx Permissive hypertension for now until new stroke ruled out MRI, TTE for TIA workup, update lipid profile Neurology consult re: TIA ISS BG goal 110-140, carb con coverage, update hemoglobin A1c DVT prophylaxis per Lovenox subcu Full code I spent a total of 30 minutes coordinating, documenting, and providing care for this patientexcludingtime spent by another provider/QHP. Text document was generated using [employer] medical voice recognition software. It may contain grammatical or spelling errors. Kindly contact undersigned for clarification of any documentation item in question. (2) Type 2 diabetes mellitus Diabetes mellitus complication status: without complication Diabetes mellitus structural mill supervisor insulin use: without structural mill supervisor use Qualified Code(s): E11.9 - Type 2 diabetes mellitus without complications
[2025-05-28] MEDS: MAGNESIUM SULFATE / D5W 1 GM/100 ML BAG IV ONE (20:38)
[2025-05-28] MEDS: CLOPIDOGREL BISULFATE 75 MG TAB PO SCH (22:44)
[2025-05-28] MEDS ORDERED: CARBOHYDRATES FOR HYPOGLYCEMIA PO PRN (23:20)
[2025-05-28] MEDS ORDERED: LABETALOL HCL IV 5 MG/ML 20ML IV PRN (23:20)
[2025-05-28] MEDS ORDERED: ACETAMINOPHEN 325 MG TAB PO PRN (23:20)
[2025-05-28] MEDS ORDERED: POLYETHYLENE (MIRALAX) 17 GM PACK PO PRN (23:20)
[2025-05-28] MEDS ORDERED: ALUMINUM/MAGNESIUM SUSP 30 ML UDC PO PRN (23:20)
[2025-05-28] MEDS ORDERED: ONDANSETRON INJ 2 MG/ML 2 ML VIAL IV PRN (23:20)
[2025-05-28] MEDS ORDERED: GLUCOSE 10 TAB/TUBE PO PRN (23:20)
[2025-05-28] MEDS ORDERED: GLUCAGON FOR INJ 1 MG VIAL SQ PRN (23:20)
[2025-05-28] MEDS ORDERED: GLUCOSE 40% GEL 15 GM TUBE PO PRN (23:20)
[2025-05-28] MEDS ORDERED: MAGNESIUM HYDROXIDE SUSP 30 ML UDC PO PRN (23:20)
[2025-05-28] MEDS ORDERED: DEXTROSE 50% 50 ML SYRINGE IV PRN (23:20)
[2025-05-28] MEDS ORDERED: LORazepam 0.5 MG TAB PO PRN (23:30)
[2025-05-28] MEDS ORDERED: PROMETHAZINE 6.25 MG/50.25 ML BAG IV PRN (23:30)
--- NOTE | 2025-05-28 23:34 | Magnetic Resonance Report ---
Exam(s): MRI HEAD Without Contrast EXAM: MR Head Without Intravenous Contrast CLINICAL HISTORY: Reason for exam: strokel chris symptoms. OTHER: Other Notes: old stroke, vision issues left eye, rule out cva TECHNIQUE: Magnetic resonance images of the head/brain without intravenous contrast in multiple planes. COMPARISON: Head CT 05/28/2025. FINDINGS: Brain: No acute infarct. Chronic lacunar infarct in the right beal radiata. No intracranial hemorrhage. Mild periventricular signal changes consistent with chronic microvascular ischemic changes. Ventricles: Unremarkable. No ventriculomegaly. Bones/joints: Unremarkable. No acute fracture. Sinuses: Unremarkable as visualized. No acute sinusitis. Mastoid air cells: Partial right mastoid effusion. Left mastoid air cells are clear.. Orbits: Unremarkable as visualized. IMPRESSION: No acute intracranial abnormality. Electronically signed by: Efren Sheth MD 05/28/25 23:33 PM
[2025-05-29] MEDS: ATORVASTATIN 40 MG TAB PO SCH (02:00)
[2025-05-29 06:38] LABS: Hematocrit (blood only) 37.8 % (42.0-52.0); Hemoglobin 13.0 g/dL (14.0-18.0); Mean Corpuscular Hemoglobin 30.2 pg (25.0-34.0); Mean Corpuscular Volume 87.7 fL (80.0-100.0); Platelet Count 245 K/uL (130-400); RDW Standard Deviation 42.5 fL (36.4-46.3); Red Blood Count 4.31 M/uL (4.70-6.10); White Blood Count 7.64 K/ul (4.8-10.8)
[2025-05-29 07:08] LABS: Anion Gap 7.0 (3-11); Blood Urea Nitrogen 12.0 mg/dl (6-23); Calcium 9.0 mg/dl (8.6-10.3); Carbon Dioxide 27.0 mmol/L (21-32); Chloride 108.0 mmol/L (98-107); Cholesterol 101.0 mg/dl (0-200); Creatinine Clr Calc Pharmacy 83.0 ml/min; Glucose 96.0 mg/dl (70-99(Fasting)); HDL Cholesterol 34.0 mg/dl; Magnesium 2.2 mg/dl (1.7-2.4); Potassium 3.4 mmol/L (3.5-5.1); Sodium 142.0 mmol/L (136-145); Triglycerides 68.0 mg/dl (0-150)
[2025-05-29 07:44] LABS: Hemoglobin A1C 6.2 % (4.5-5.6)
[2025-05-29] MEDS: VITAMIN B COMPLEX TAB PO SCH (08:43)
[2025-05-29] MEDS ORDERED: ENOXAPARIN INJ 40 MG/0.4 ML SYR SQ SCH (09:00)
[2025-05-29] MEDS: POTASSIUM CHLORIDE 10 MEQ TABCR PO STA (09:19)
--- NOTE | 2025-05-29 13:09 | XCELERA ---
[id number] \\[id number]
--- NOTE | 2025-05-29 16:21 | Hospitalist Progress Note ---
Date of Service May 29, 2025 Assessment & Plan (1) Transient visual loss of both eyes: (2) Type 2 diabetes mellitus: (3) Hypertensive urgency: (4) History of stroke: (5) Stroke-like symptoms: Plan per admitting service notes with addendum: 69 year old M presents with acute onset transient b/l vision changes including pea-sized spots and disappearing text while reading. Symptoms resolved while in ED. Also has HTN urgency; does not take his BP at home. Add'l PMH includes H/O CVA (2019), HTN, HLD, and NIDDM2. # Possible transient ischemic attack #Transient vision loss; bilateral: history of CVA, 2019 CVA occurred in 2019; some residual left face neuropathy Already on aspirin 162 mg daily and atorvastatin [address]: negative Head/Neck CTA: negative for stenosis or mass Brain MRI: No acute infarct. Chronic lacunar infarct in the right beal Partial right mastoid effusion ECHO: left ventricular systolic function is normal, left ventricular ejection fraction 55 to 60%, grade 1 diastolic dysfunction, aortic valve sclerosis mild, without significant aortic valvular stenosis today, symptoms have resolved No neurologic symptoms Plavix added to usual aspirin ( decreased to 81 mg from 162 mg) atorvastatin 40 mg daily continued Awaiting neurology service recommendations #HTN urgency: SBP > 200 Labetolol 10 mg given in ED; Labetolol 5 mg IV one PRN for SBP > 220 Prefer nursing contact if they use to adjust or write a new order 05/29 Permissive hypertension today Usually takes lisinopril 20 mg daily, 10 mg daily for now If still neurologically stable by tomorrow, may resume usual 20 mg daily #NIDDM2: Most recent OPT A1C 04/2024 6.4 Takes Metformin; hold while inpt Place on ACHS SSI -- A1c 6.2 Disposition: PCP: Dr. Carter Code Status: Full VTE Prophyalxis: Teds and SCDs for now Possible discharge to home tomorrow Admission and Anticipated Discharge Date Admission Date: May 28, 2025 Subjective seen resting in bed, sitting up, comfortable States he feels fine overall No recurrence of visual symptoms Denies headache, dizziness, weakness or numbness, focal neurologic deficits No other new symptoms Review of Systems Review of Systems: all noted and negative except for above Physical Exam Physical Exam: General- oriented x 3, not in distress, speaks in sentences with no effort or accessory muscle use Eyes- anicteric Neck- no JVD Lungs- clear breath sounds bilaterally, no rales/wheezes Heart- normal rate, regular rhythm; no murmurs Abdomen- normal bowel sounds, nondistended, soft, nontender Extremities- no pretibial edema, no calf tenderness Neuro- alert, oriented x 3; no gross focal neurologic deficits Skin- warm & dry Results & Data Results & Data Vital Signs (Past 12 Hours) Vital Signs Temp Pulse Pulse Resp BP Pulse Ox O2 Del Method 05/29/25 15:35 36.5 C 76 16 175/89 H 93 Room Air 05/29/25 11:37 36.7 C 71 16 158/87 H 96 Room Air 05/29/25 08:13 36.5 C 64 16 191/90 H 95 Room Air 05/29/25 07:42 72 05/29/25 04:30 36.8 C 84 18 180/86 H 97 Room Air all noted and reviewed including below (2) Type 2 diabetes mellitus Diabetes mellitus usp insulin use: without watermelon inspector use Diabetes mellitus complication status: without complication Qualified Code(s): E11.9 - Type 2 diabetes mellitus without complications
[2025-05-29] MEDS ORDERED: ASPIRIN 81 MG ECTAB PO SCH (21:00)
[2025-05-29] MEDS ORDERED: ATORVASTATIN 40 MG TAB PO SCH (21:00)
[2025-05-29] MEDS: INSULIN ASPART PER UNIT CHARGE SC SCH (21:29)
[2025-05-29] MEDS: ASPIRIN 81 MG ECTAB PO SCH (21:30)
[2025-05-30 04:37] VITALS: TEMP 97.9
--- NOTE | 2025-05-30 06:31 | Electrocardiogram Report ---
Test Reason : Blood Pressure : */* mmHG Vent. Rate : 76 BPM Atrial Rate : 76 BPM P-R Int : 154 ms QRS Dur : 100 ms QT Int : 374 ms P-R-T Axes : 65 56 42 degrees QTcB Int : 420 ms Normal sinus rhythm Nonspecific ST abnormality When compared with ECG of 19-Jun-2023 09:18, Vent. rate has decreased by [address] elevation now present in Anterior leads Confirmed by Austen Miranda ([id number]) on 05/30/2025 6:31:13 AM Referred By: REFERRED SELF Confirmed By: Austen Miranda
[2025-05-30 07:01] LABS: Hematocrit (blood only) 39.9 % (42.0-52.0); Hemoglobin 13.7 g/dL (14.0-18.0); Immature Granulocytes # (auto) 0.01 K/uL (0.01-0.20); Immature Granulocytes % (auto) 0.1 %; Mean Corpuscular Hemoglobin 30.3 pg (25.0-34.0); Mean Corpuscular Volume 88.3 fL (80.0-100.0); Platelet Count 260 K/uL (130-400); RDW Standard Deviation 42.5 fL (36.4-46.3); Red Blood Count 4.52 M/uL (4.70-6.10); White Blood Count 7.08 K/ul (4.8-10.8)
[2025-05-30 07:28] LABS: Alanine Aminotransferase 13.0 U/L (7-52); Albumin Globulin Ratio 1.6 (0.9-2); Albumin Level 4.1 gm/dl (3.4-5.0); Alkaline Phosphatase 66.0 U/L (34-104); Anion Gap 7.0 (3-11); Bilirubin,Total 1.1 mg/dl (0.2-1.0); Blood Urea Nitrogen 18.0 mg/dl (6-23); Calcium 9.4 mg/dl (8.6-10.3); Carbon Dioxide 27.0 mmol/L (21-32); Chloride 106.0 mmol/L (98-107); Creatinine Clr Calc Pharmacy 83.9 ml/min; Globulin 2.6 gm/dl (2.5-4.0); Glucose 99.0 mg/dl (70-99(Fasting)); Potassium 4.1 mmol/L (3.5-5.1); Sodium 140.0 mmol/L (136-145); Total Protein 6.7 gm/dl (6.0-8.3)
[2025-05-30 11:28] VITALS: BP 174/98; PULSE 75; RESP 18; O2SAT 98
--- NOTE | 2025-05-30 16:28 | Discharge Summary ---
Discharge Summary Date of Service May 30, 2025 Principal Dx & Hospital Course #1 = Principal Diagnosis (1) Transient visual loss of both eyes: (2) Type 2 diabetes mellitus: (3) Hypertensive urgency: (4) History of stroke: (5) Stroke-like symptoms: Plan per admitting service notes with addendum: 69 year old M presents with acute onset transient b/l vision changes including pea-sized spots and disappearing text while reading. Symptoms resolved while in ED. Also has HTN urgency; does not take his BP at home. Add'l PMH includes H/O CVA (2019), HTN, HLD, and NIDDM2. # Possible transient ischemic attack #Transient vision loss; bilateral: history of CVA, 2019 CVA occurred in 2019; some residual left face neuropathy Already on aspirin 162 mg daily and atorvastatin [address]: negative Head/Neck CTA: negative for stenosis or mass Brain MRI: No acute infarct. Chronic lacunar infarct in the right beal Partial right mastoid effusion ECHO: left ventricular systolic function is normal, left ventricular ejection fraction 55 to 60%, grade 1 diastolic dysfunction, aortic valve sclerosis mild, without significant aortic valvular stenosis today, symptoms have resolved No neurologic symptoms Plavix added to usual aspirin ( decreased to 81 mg from 162 mg) atorvastatin 40 mg daily continued Awaiting neurology service recommendations #HTN urgency: SBP > 200 Labetolol 10 mg given in ED; Labetolol 5 mg IV one PRN for SBP > 220 Prefer nursing contact if they use to adjust or write a new order 05/29 Permissive hypertension today Usually takes lisinopril 20 mg daily, 10 mg daily for now If still neurologically stable by tomorrow, may resume usual 20 mg daily #NIDDM2: Most recent OPT A1C 04/2024 6.4 Takes Metformin; hold while inpt Place on ACHS SSI -- A1c 6.2 Disposition: PCP: Dr. Carter Code Status: Full VTE Prophyalxis: Teds and SCDs for now Possible discharge to home tomorrow Notes For Next Care Provider Mr. Macario is a 69 year old male that presents with acute onset transient b/l vision changes including pea-sized spots and disappearing text while reading. Found to have hypertensive emergency in ED, admitted to medicine. On medicine symptoms completely resolved. Per patient symptoms similar to prior stroke when he came in, improved with improved BP. Started plavix for 21 days, increased statin. MR head without stroke. On 05/30/2025 patient medically stable for discharge and at request of patient. To do: [ ] f/u with neurology [ ] titrate BP meds for better control Medication Changes From Visit -increased statin, plavix, norvasc Admission HPI Per Admitting Provider Mr. Macario is a 69 year old male that presents with acute onset transient b/l vision changes including pea-sized spots and disappearing text while reading. Symptoms resolved while in ED. Also has HTN urgency; does not take his BP at home. Add'l PMH includes H/O CVA (2019), HTN, HLD, and NIDDM2. He had cataract sx a few years ago without complications. He was his normal self until 4:30 this afternoon when he was sitting and reading a book; he noticed pea-sized black spots on the pages of his book; followed by disappearing texts. After 3 minutes he noticed a crescent ambrosio in both of his eyes. He reports that his symptoms have resolved while here. He stated that he had a CVA in 2019, and his mother had a stroke also. He used to follow with neurology but does not anymore. He does not monitor his BP at home. In the ED, a head CT was CTA shows no evidence for intracranial large vessel occlusion or hemodynamically significant stenosis. No visualized aneurysm. No acute intracranial pathology. Normal CTA of the head. Pt denies tobacco, alcohol, or recreational drug use. Pt denies BELL, auditory changes, dizziness, SOB, chest pain, abdominal pain or tenderness, dysuria, hematochezia, recent falls or trauma. On examination, he is AAOx3, able to hold meaningful conversation; soft spoken voice. Equal muscle strength throughout and NIH 0. Lungs CTA, S1/S2, eye exam; PERRLA, 3cm B/L, (+) red reflex b/l, no edema. Patient will be admitted for continued formal stroke work up including Brain MRI, ECHO, Neuro consult, Lipid panel, A1C, Plavix 75 mg once now; permissive HTN. Will need HTN medication adjustment if stroke ruled out. SSI ACHS. PLease see A/P for further details Discharge Exam Gen: A&O 3 NAD HEENT: NCAT, EOMI, not icteric. External ears normal. No rhinorrhea. Moist mucous membranes. Neck: Supple, full range of motion, no observable masses, No meningeal sign. Lungs: No Respiratory distress. CV: RRR, no edema. Abdomen: Soft, nondistended, No rebound tenderness. MSK: No joint swelling, no redness. Skin: No rashes, petechiae, lesions. Normal color per patient. Neuro: Normal Gait, Grossly intact. NIHSS of 0, per patient at baseline Psych: Appropriate for situation. Updated Medication List Medication Instructions Recorded Confirmed Type metformin 500 mg tablet,extended 500 mg PO HS 06/19/23 05/28/25 History release 24 hr aspirin 81 mg tablet,delayed 162 mg PO QPM 02/26/25 05/28/25 History release fluoxetine 20 mg capsule 20 mg PO QPM 05/28/25 05/28/25 History lisinopril 20 mg tablet 20 mg PO QPM 05/28/25 05/28/25 History amlodipine 5 mg tablet 5 mg PO QAM 30 days #30 tabs 05/30/25 Rx atorvastatin 40 mg tablet 80 mg (2 x 40 mg) PO PM #60 tabs 05/30/25 Rx clopidogrel 75 mg tablet 75 mg PO HS 20 days #20 tabs 05/30/25 Rx Hospital Stay Data Consultations 05/28/25 20:25 ED Decision to Admit Stat 05/28/25 23:20 Consult Neurology Routine Diagnostic Imagining Performed 05/28/25 16:43 CT angio head w con Stat CT angio neck with con Stat CT head/brain wo con Stat 05/28/25 21:24 MR brain wo con Stat Pending Results Patient Have Any Pending Studies at Discharge: No Discharge Instructions Given to Patient (Per Discharging Provider) Diagnosis: vision changes (resolved, possibly 2/2 stroke recrudescence vs. TIA) Follow Ups: PCP, neurology 1. Please take blood pressure meds as prescribed. 2. Please follow up with PCP and neurology. Total Time Total Time Spent Total Time Spent (In Minutes): I spent a total of 35 minutes in direct patient care, including [id number] time with the patient and/or family, reviewing medical records, ordering and reviewing diagnostic tests, and coordinating care with other healthcare providers. This time includes: history taking, physical examination, medical decision making, counseling, ECG interpretation, imaging interpretation, lab interpretation, orders, and education, excluding time spent in the performance of separately billed services.
== END 2025-05-30 13:24 | disposition home or self-care (01) ==
LOC: 2W 16:06 → ED 16:06 → SUATTDRO 21:37 → 2W 22:56